=== PATIENT | female | born 1950 | race Caucasian/White ===

== ENCOUNTER 2020-07-07 16:05 | Emergency (ER) | payer MEDICARE, SELFPAY ==
[2020-07-07 19:05] VITALS: BP 108/65; PULSE 88; RESP 18; TEMP 37.1; O2SAT 99; BMI 21.0
--- NOTE | 2020-07-07 20:33 | CT_ITS ---
EXAMINATION: CT ABDOMEN AND PELVIS WITHOUT CONTRAST CLINICAL INFORMATION: Right-sided flank pain. History of kidney stones. COMPARISON: Chest CT 09/13/2018, renal ultrasound 11/01/[address] abdomen pelvis 10/15/2014 TECHNIQUE: Multidetector volumetric imaging was performed from the superior aspect of the liver through the pubic symphysis. Sagittal and coronal reformatted images were obtained on the technologist's workstation. This CT examination was performed using dose optimization techniques as appropriate, variously including the following: *Automated exposure control *Adjustment of mA and/or kV according to patient size (this includes techniques or standardized protocols for targeted exams where dose is matched to indication/reason for exam; i.e. extremities or head) *Use of iterative reconstruction technique DLP: 313 mGy-cm FINDINGS: Visualized lung bases are well aerated. The liver demonstrates normal size, contour and attenuation. The gallbladder is surgically absent. Numerous calcifications within the pancreatic head are most consistent with chronic pancreatitis. The spleen is unremarkable. Similar hypertrophy of both adrenal glands. Symmetrically sized kidneys. There is some cortical atrophy primarily involving the upper pole of the right kidney. There is a 3 mm nonobstructing right renal calculus. No left-sided renal calculi are present. There is no hydronephrosis of either kidney. Interval increase in size of now 4.7 cm exophytic cyst off the upper pole of the left kidney (previously 2.3 cm). Normal caliber loops of small and large bowel. Colonic diverticulum again noted. No gross mesenteric or retroperitoneal lymphadenopathy. Nonaneurysmal abdominal aorta which demonstrates mild atherosclerotic disease. The bladder is decompressed and therefore not accurately evaluated. Unremarkable CT appearance of the uterus. No inguinal lymphadenopathy. No gross free pelvic fluid. Diffuse osteopenia. Degenerative changes of the spine. IMPRESSION: 1. Stable 3 mm nonobstructing right renal calculus. No left-sided renal calculi. No hydronephrosis bilaterally. 2. Cortical atrophy primarily involving the upper pole the right kidney, a chronic finding. 3. Interval increase in size of now 4.7 cm left renal cyst, previously 2.3 cm. 4. Calcifications of the pancreatic head most consistent with chronic pancreatitis.
[2020-07-07] MEDS: 0.9 % Sodium Chloride 1,000 ML 999 ML IVCONT (21:23)
[2020-07-07 21:28] LABS: MANUAL DIFF FLAG NO
[2020-07-07 21:32] LABS: Basophils Absolute Auto 0.1 X10*3/uL (0.0-0.2); Eosinophils Absolute Auto 0.3 X10*3/uL (0.0-0.4); Eosinophils Percent Auto 2.8 % (0-4); Glucose Urine UA NEG (NEG); Hematocrit 36.6 % (37-47); Hemoglobin 11.9 g/dl (12.0-16.0); Imm Gran Abs Auto 0.03 X10*3/uL (0.00-0.03); Imm Gran Pct Auto 0.3 % (0.0-0.4); Leukocyte Esterase Urine 1+ (NEG); Lymphocytes Absolute Auto 3.9 X10*3/uL (1.2-4.9); Lymphocytes Percent Auto 43.6 % (20-40); Mean Corpuscular HGB Conc 32.5 g/dl (31.0-35.0); Mean Corpuscular Hemoglobin 31.4 pg (27.0-33.0); Mean Corpuscular Volume 96.6 fL (80-98); Mean Platelet Volume 9.4 fL (9.4-12.3); Monocytes Absolute Auto 0.8 X10*3/uL (0.1-1.2); Monocytes Percent Auto 9.2 % (2-11); Neutrophils Absolute Auto 3.9 X10*3/uL (2.0-8.3); Neutrophils Percent Auto 43.1 % (45-73); Nitrite Urine NEG (NEG); Platelet Count 267 X10*3/uL (160-400); Red Blood Count 3.79 X10*6/uL (4.20-5.50); Red Cell Distribution Width 12.7 % (11.0-16.0); Specific Gravity - Urine 1.025 (1.005-1.025); Urine Blood 2+ (NEG); Urine Ketones NEG (NEG); Urine Protein TRACE MG/DL (NEG-TRACE); White Blood Count 8.9 X10*3/uL (4.8-10.8)
[2020-07-07 21:33] LABS: Appearance Urine CLOUDY; Color Urine YELLOW
[2020-07-07 21:40] LABS: Bacteria Urine 4+ /LPF
[2020-07-07 22:07] LABS: Alanine Aminotransferase 13 U/L (0-31); Albumin Level 4.1 g/dL (3.5-5.0); Alkaline Phosphatase 68 U/L (39-117); Anion Gap 12 (12-20); Aspartate Amino Transferase 17 U/L (5-31); Bilirubin Total 0.4 mg/dL (0.0-1.0); Blood Urea Nitrogen 17 mg/dL (9-16); Calcium 8.9 mg/dL (8.4-10.2); Carbon Dioxide 27 mmol/L (22-29); Chloride 104 mmol/L (96-108); Creatinine Clr Calc Pharmacy 25.3; Estimated Glomerular Filt Rate 31; Glucose Random 97 mg/dL (60-115); Potassium 4.3 mmol/l (3.3-5.1); Sodium 139 mmol/L (135-145); Total Protein 7.3 g/dL (6.5-8.0)
[2020-07-07 22:15] LABS: Lipase 86 U/L (8-78)
--- NOTE | 2020-07-07 22:38 | ED.ABDPAIN ---
HPI - Abdominal Pain General Chief Complaint: Abdominal Pain Stated Complaint: abdominal pain Time Seen by Provider: 07/07/20 20:28 Source: patient Mode of arrival: ambulatory Limitations: no limitations History of Present Illness MD elicited complaint: abdominal pain Onset (ago): day(s) (3) Pain Consistency: constant Location: RUQ and R flank Severity: moderate Quality: dull Radiation: none Exacerbating factors: nothing Relieving factors: nothing Associated symptoms: nausea Related Data Previous Rx's Medication Instructions Recorded ciprofloxacin HCl [Cipro] 250 mg PO BID #10 tab 07/07/20 Allergies Allergy/AdvReac Type Severity Reaction Status Date / Time Penicillins Allergy Mild RASH Unverified 07/07/20 19:04 Sulfa (Sulfonamide Allergy Mild RASH Unverified 07/07/20 19:04 Antibiotics) [Sulfa (Sulfonamides)] hydromorphone [From DILAUDID] Allergy Unknown NAUSEA & Unverified 07/07/20 19:04 VOMITING penicillin V Allergy Unknown Rash Verified 07/07/20 19:04 Review of Systems Constitutional: Denies chills and Denies fever(s) Cardiovascular: Reports no additional cardiovascular complaints Respiratory: Reports no additional respiratory complaints Gastrointestinal: Denies melena, Denies change in bowel habits, Denies constipation, Denies diarrhea and Denies vomiting Genitourinary: Denies urinary incontinence, Denies urinary hesitancy and Denies urinary urgency Musculoskeletal: Reports no additional musculoskeletal complaints Reports system reviewed and no additional complaints, except as documented Physical Exam Vital Signs: Vital Signs: Vital Signs Temp Pulse Resp BP Pulse Ox 07/07/20 19:05 98.7 F 88 18 108/65 99 Body Mass Index 21.0 Const: General: cooperative Nutritional Appearance: average body habitus Orientation/consciousness: oriented to person, oriented to place and oriented to time Limitations: no limitations HENMT: Ears: hearing grossly normal bilaterally Mouth: Normal oral and palatal mucosa present Eyes: General: appearance normal, both eyes and all related structures Neck: Neck: Yes normal visual inspection Resp: Effort & Inspection: normal respiratory effort Auscultation: clear to auscultation bilaterally Cardio: Rate: regular rate Rhythm: regular rhythm and abnormal rhythm Heart sounds: S1 normal heart sound present and S2 normal heart sound present GI: Inspection: Yes normal to inspection Palpation (GI): Soft to palpation and Tenderness to palpation present (GI) in the RUQ Percussion: Yes normal to percussion : General: Yes CVA tenderness on the right Back/Spine/Pelvis: Back: CVA tenderness Neuro: General: oriented to person, oriented to place and oriented to time Extrem: General: Yes normal to inspection and Yes full ROM Right upper extremity: normal to inspection Left upper extremity: normal to inspection Course Course Course Narrative: patient with nonspecific right flank pain nonobstructive kidney stone urine showing slightly positive for infection with leuko esterase positive, nitrite negative. Will give her Levaquin p.o. Tylenol for pain will discharge her home patient refused any antibiotics or pain medicine in the ER MDM - Abdominal Pain Lab Data Result diagrams: 07/07/20 21:21 07/07/20 21:21 Labs: Lab Results 07/07/20 07/07/20 07/07/20 Range/Units 21:21 21:21 21:21 WBC 8.9 (4.8-10.8) X10*3/uL RBC 3.79 L (4.20-5.50) X10*6/uL Hgb 11.9 L (12.0-16.0) g/dl Hct 36.6 L (37-47) % MCV 96.6 (80-98) fL MCH 31.4 (27.0-33.0) pg MCHC 32.5 (31.0-35.0) g/dl RDW 12.7 (11.0-16.0) % Plt Count 267 (160-400) X10*3/uL MPV 9.4 (9.4-12.3) fL Immature Gran % (Auto) 0.3 (0.0-0.4) % Neut % (Auto) 43.1 L (45-73) % Lymph % (Auto) 43.6 H (20-40) % Bacon % (Auto) 9.2 (2-11) % Eos % (Auto) 2.8 (0-4) % Baso % (Auto) 1.0 (0-2) % Lymph # (Auto) 3.9 (1.2-4.9) X10*3/uL Bacon # (Auto) 0.8 (0.1-1.2) X10*3/uL Eos # (Auto) 0.3 (0.0-0.4) X10*3/uL Baso # (Auto) 0.1 (0.0-0.2) X10*3/uL Abs Immat Gran (auto) 0.03 (0.00-0.03) X10*3/uL Absolute Neuts (auto) 3.9 (2.0-8.3) X10*3/uL Absolute Nucleated RBC 0.000 (0.0-0.012) X10*3/uL Nucleated RBC % (auto) 0.0 (0.0-0.2) /100WBC Sodium 139 (135-145) mmol/L Potassium 4.3 (3.3-5.1) mmol/l Chloride 104 (96-108) mmol/L Carbon Dioxide 27 (22-29) mmol/L Anion Gap 12 (12-20) BUN 17 H (9-16) mg/dL Creatinine 1.63 H (0.5-1.4) mg/dL Estim Creat Clear Calc 25.3 Estimated GFR 31 Random Glucose 97 (60-115) mg/dL Calcium 8.9 (8.4-10.2) mg/dL Total Bilirubin 0.4 (0.0-1.0) mg/dL AST 17 (5-31) U/L ALT 13 (0-31) U/L Alkaline Phosphatase 68 (39-117) U/L Total Protein 7.3 (6.5-8.0) g/dL Albumin 4.1 (3.5-5.0) g/dL Lipase 86 H (8-78) U/L Urine Color YELLOW Urine Appearance CLOUDY Urine pH 6.0 (5.0-8.0) Ur Specific Fleming 1.025 (1.005-1.025) Urine Protein TRACE (NEG-TRACE) MG/DL Urine Glucose (UA) NEG (NEG) MG/DL Urine Ketones NEG (NEG) MG/DL Urine Blood 2+ H (NEG) Urine Nitrite NEG (NEG) Ur Leukocyte Esterase 1+ H (NEG) Urine RBC 1-4 (0) /HPF Urine WBC 5-9 H (0-4) /HPF Ur Squamous Epith Cells NONE /LPF Urine Bacteria 4+ /LPF Discharge Plan Discharge Clinical Impression: Acute right flank pain, Acute UTI Patient Disposition: Home, Self-Care Instructions: Urinary Tract Infection in Women (ED), Renal Colic (ED) Additional Instructions: drink plenty of fluids and take antibiotics as advised, Tylenol for pain follow-up with your primary care doctor if not better Prescriptions: New ciprofloxacin HCl [Cipro] 250 mg tablet 250 mg PO BID Qty: 10 RF: 0 PMFSH Past Medical History Medical History Diabetes Gallbladder & bile duct stone with obstruction High cholesterol Hyperkalemia Hypertension Kidney failure Surgical History History of bladder surgery Social History Social History Advance Directives: No Advance Directives Information Provided: No
[2020-07-07 22:50] VITALS: BP 145/87; PULSE 88; RESP 16; TEMP 37.1; O2SAT 99
[2020-07-08 00:15] LABS: SARS COV2 PCR INHOUSE NEGATIVE (Negative)
== END 2020-07-07 23:29 | disposition home or self-care (01) ==
PROVIDERS: Emergency Provider Internal Medicine; PCP Internal Medicine
DX: N39.0 Urinary tract infection, site not specified (principal); Z79.899 Other long term (current) drug therapy
CPT/HCPCS: 36415; 74176; 80053; 81001; 83690; 85025; 87086; 87088; 87186; 87635; 96361; 96374; 99284; J1885

== ENCOUNTER → 2020-07-22 13:54 | Outpatient (BNVA) | payer MEDICARE, SELFPAY | PROVIDERS: PCP Nurse Practitioner Family; Referring Provider Nurse Practitioner Family; Visit Provider Nurse Practitioner | DX: K59.00 Constipation, unspecified (principal); K21.9 Gastro-esophageal reflux disease without esophagitis; Z79.899 Other long term (current) drug therapy | CPT/HCPCS: 99212 ==

== ENCOUNTER → 2020-09-15 14:12 | Outpatient (BNVA) | payer MEDICARE, SELFPAY | PROVIDERS: PCP Internal Medicine; Visit Provider Nurse Practitioner | DX: Z13.89 Encounter for screening for other disorder (principal) | CPT/HCPCS: Q3014 ==

== ENCOUNTER 2020-09-28 10:49 | Outpatient (REF) | payer MEDICARE, SELFPAY | END 2020-09-28 10:50 | disposition home or self-care (01) | LOC: HO.LNP 10:49 | PROVIDERS: Visit Provider Nurse Practitioner | DX: K21.9 Gastro-esophageal reflux disease without esophagitis (principal) | CPT/HCPCS: 87338 ==

== ENCOUNTER 2020-10-06 11:04 | Outpatient (REF) | payer MEDICARE, SELFPAY ==
[2020-10-06 13:01] LABS: Anion Gap 13 (12-20); Blood Urea Nitrogen 16 mg/dL (9-16); Calcium 8.8 mg/dL (8.4-10.2); Carbon Dioxide 25 mmol/L (22-29); Chloride 104 mmol/L (96-108); Estimated Glomerular Filt Rate 28; Phosphorus 3.3 mg/dL (2.7-4.5); Potassium 5.5 mmol/l (3.3-5.1); Sodium 136 mmol/L (135-145)
[2020-10-06 13:38] LABS: Renal w Reflex Lab Use Only Order verified
== END 2020-10-06 11:05 | disposition home or self-care (01) ==
LOC: HO.LAB 11:04
PROVIDERS: PCP Internal Medicine; Visit Provider Internal Medicine Nephrology
DX: E11.22 Type 2 diabetes mellitus with diabetic chronic kidney disease (principal); I12.9 Hypertensive chronic kidney disease with stage 1 through stage 4 chronic kidney disease, or unspecified chronic kidney disease; N18.30 Chronic kidney disease, stage 3 unspecified; N20.0 Calculus of kidney
CPT/HCPCS: 36415; 80051; 82310; 82565; 84100; 84520

== ENCOUNTER 2020-10-06 11:51 | Outpatient (REF) | payer MEDICARE, SELFPAY | END 2020-10-06 11:52 | disposition home or self-care (01) | LOC: HO.LAB 11:51 | PROVIDERS: Visit Provider Internal Medicine | DX: Z20.822 Contact with and (suspected) exposure to COVID-19 (principal) | CPT/HCPCS: 36415; C9803; U0003 ==

== ENCOUNTER → 2020-10-14 14:34 | Outpatient (BNVA) | payer MEDICARE, SELFPAY | PROVIDERS: PCP Internal Medicine; Visit Provider Nurse Practitioner | DX: Z13.89 Encounter for screening for other disorder (principal) | CPT/HCPCS: Q3014 ==

== ENCOUNTER 2020-11-13 12:37 | Outpatient (REF) | payer MEDICARE, SELFPAY ==
--- NOTE | ~2020-11-13 | MM_ITS ---
EXAMINATION: MM SCREENING DIGITAL BREAST TOMOSYNTHESIS, BILATERAL CLINICAL INFORMATION: Screening. Asymptomatic. The lifetime risk of breast cancer based on the Tyrer-Cuzick Model is 2%. COMPARISON: Mammography: 08/13/2018, 03/17/2016 TECHNIQUE: Digital breast tomosynthesis is performed in both the craniocaudal and mediolateral oblique views along with computer-aided detection (CAD). Synthesized 2D images are generated from the tomosynthesis. FINDINGS: There are scattered areas of fibroglandular density (ACR BI-RADS breast composition Category b). There are no significant masses, abnormal calcifications, or other abnormalities. The axilla and skin contours are unremarkable. No significant changes. MM/MM tomosynthesis screening BI IMPRESSION: No mammographic evidence of malignancy. ASSESSMENT: BI-RADS 1: Negative RECOMMENDATION: Routine annual mammography screening. This patient's information was entered into a reminder system with a target due date for their next mammogram.
== END 2020-11-13 12:38 | disposition home or self-care (01) ==
LOC: HO.MAMMO 12:37
PROVIDERS: PCP Internal Medicine; Visit Provider Internal Medicine
DX: Z12.31 Encounter for screening mammogram for malignant neoplasm of breast (principal)
CPT/HCPCS: 77063; 77067

== ENCOUNTER 2021-01-07 11:39 | Outpatient (REF) | payer MEDICARE, SELFPAY ==
[2021-01-07 12:47] LABS: Anion Gap 14 (12-20); Blood Urea Nitrogen 16 mg/dL (9-16); Carbon Dioxide 23 mmol/L (22-29); Chloride 104 mmol/L (96-108); Estimated Glomerular Filt Rate 31; Phosphorus 3.7 mg/dL (2.7-4.5); Sodium 136 mmol/L (135-145)
[2021-01-07 13:10] LABS: Renal w Reflex Lab Use Only Order verified
== END 2021-01-07 11:40 | disposition home or self-care (01) ==
LOC: HO.LAB 11:39
PROVIDERS: PCP Internal Medicine; Visit Provider Internal Medicine Nephrology
DX: I12.9 Hypertensive chronic kidney disease with stage 1 through stage 4 chronic kidney disease, or unspecified chronic kidney disease (principal); E11.22 Type 2 diabetes mellitus with diabetic chronic kidney disease; E11.21 Type 2 diabetes mellitus with diabetic nephropathy; N18.30 Chronic kidney disease, stage 3 unspecified; N20.0 Calculus of kidney
CPT/HCPCS: 36415; 80051; 82310; 82565; 84100; 84520

== ENCOUNTER 2021-03-11 20:45 | Emergency (ER) | payer MEDICARE, SELFPAY ==
--- NOTE | ~2021-03-11 | XR_ITS ---
EXAMINATION: CHEST 2 VIEWS CLINICAL INFORMATION: congestion . COMPARISON: 07/15/2018. TECHNIQUE: PA and lateral views of the chest obtained. FINDINGS: The lungs are well expanded. No focal infiltrate, effusion, edema, or pneumothorax. Cardiac and mediastinal silhouettes are within normal limits for size with vascular calcification in the aorta. No acute bony abnormality seen XR/XR chest 2V IMPRESSION: No evidence of acute disease compared to 07/15/2018
[2021-03-11 21:10] VITALS: BP 140/75; PULSE 82; RESP 18; TEMP 37.4; O2SAT 96; BMI 21.4
[2021-03-11 21:52] LABS: COVID-19 Test Negative (Negative)
[2021-03-11 23:04] VITALS: BP 135/82; PULSE 74; RESP 18; TEMP 37.3; O2SAT 97
--- NOTE | 2021-03-11 23:41 | ED_ITS ---
HPI - URI/Sore Throat General Chief Complaint: General Medical Stated Complaint: covid symptoms Time Seen by Provider: 03/11/21 23:01 Source: patient and family Mode of arrival: ambulatory Limitations: no limitations History of Present Illness HPI Narrative: Patient's history of recurrent bronchitis being having upper respiratory symptoms for last 3 4 days with frequent cough no fever slight wheezing with shortness of breath patient's grand daughter is sick with the same symptoms patient did not get her COVID vaccine using albuterol inhaler at home denies any chest pain or leg swelling Related Data Previous Rx's Medication Instructions Recorded docusate sodium 100 mg capsule 100 mg PO DAILY #30 cap 10/07/20 sennosides 8.6 mg tablet [id number]? mg PO BEDTIME #60 tab 10/22/20 pantoprazole 40 mg tablet,delayed 40 mg PO BID 30 Days #60 tab 02/22/21 release albuterol sulfate [Proventil HFA] 2 puff INHALATION Q4-6H PRN #8.5 g 03/11/21 codeine-guaifenesin 5 ml PO Q6H PRN #120 ml 03/11/21 doxycycline hyclate 100 mg PO BID #20 cap 03/11/21 Allergies Allergy/AdvReac Type Severity Reaction Status Date / Time Penicillins Allergy Mild RASH Verified 10/14/20 14:34 Sulfa (Sulfonamide Allergy Mild RASH Verified 10/14/20 14:34 Antibiotics) [Sulfa (Sulfonamides)] hydromorphone [From DILAUDID] Allergy Unknown NAUSEA & Verified 10/14/20 14:34 VOMITING Review of Systems Review of Systems: Constitutional : No Weight loss, No Fever, No Chills ENT/Mouth : No sore throat, No Rhinorrhea Eyes: No Eye Pain, No Swelling Cardiovascular : No Chest Pain, no palpitations Respiratory : +Cough, No Sputum, + shortness of breath Gastrointestinal : no Nausea, No Vomiting, No Diarrhea, No abdominal Pain, no black stools Genitourinary : No Dysuria, No Urinary Frequency Musculoskeletal : No joint pain, No Myalgias, No Joint Swelling Skin : No Skin Lesions, No rash Neuro : No Weakness, No Numbness, No Dizziness, No Headache Psych : No Anxiety/Panic, No Depression Heme/Lymph: No Bruising, No Lymphadenopathy Endocrine : No Polyuria, No Polydipsia All other systems reviewed and are negative [facility] Past Medical History Medical History Diabetes Gallbladder & bile duct stone with obstruction High cholesterol Hyperkalemia Hypertension Kidney failure Surgical History History of bladder surgery Hx of colonoscopy Family History Family History Father Diabetes Heart attack Mother Diabetes Alzheimer disease Family/Other Diabetes Social History Social History Household Members: None Alcohol intake: never Cigarettes Per Day: 4 Advance Directives: No Advance Directives Information Provided: No Physical Exam Vital Signs: Vital Signs: Last Vital Signs Temp 99.2 F 03/11/21 23:04 Pulse 74 03/11/21 23:04 Resp 18 03/11/21 23:04 BP 135/82 03/11/21 23:04 Pulse Ox 97 03/11/21 23:04 Body Mass Index 21.4 Appearance: Alert. Oriented X3. No acute distress. Eyes: PERRLA, No Nystagmus ENT: Pharynx normal. Oral Mucosa moist Neck: Normal inspection. Neck supple. CVS: Normal heart rate and rhythm. Pulses normal. Respiratory: No respiratory distress. Equal air entry bilateral, bilateral wheezing with frequent cough Abdomen: Soft and nontender. Bowel sounds are present, no mass palpable, no CVA tenderness Skin: Skin warm and dry. Normal skin color. Normal skin turgor. Extremities: No lower extremity edema. No calf tenderness Neuro: Oriented X 3. No motor deficit. No sensory deficit.No cerebellar signs , cranial nerves II-XII intact MDM - URI/Sore Throat MDM Narrative Medical decision making narrative: Patient with acute bronchitis refuse nebulizing treatment in the ER saturating 96% at room air does have inhaler at home will continue to use will give her doxycycline and Robitussin syrup chest x-ray negative for any infiltrate COVID-19 negative Lab Data Attestation: I reviewed the patient's lab results. Labs: Lab Results 03/11/21 Range/Units 21:27 COVID-19 (ASAF) Negative (Negative) COVID-19 Clin Com See Note Discharge Plan Discharge Clinical Impression: Acute bronchitis Patient Disposition: Home, Self-Care Instructions: Acute Bronchitis (ED) Additional Instructions: Continue to use your inhaler 2 puffs every 4-6 hours as needed Antibiotic and cough syrup as advised Prescriptions: New doxycycline hyclate 100 mg capsule 100 mg PO BID Qty: 20 RF: 0 codeine-guaifenesin 10-100 mg/5 mL liquid 5 ml PO Q6H PRN (Reason: cough) Qty: 120 RF: 0 albuterol sulfate [Proventil HFA] 90 mcg/actuation HFA aerosol inhaler 2 puff inhalation Q4-6H PRN (Reason: shortness of breath or wheezing) Qty: 8.5 RF: 0 No Action docusate sodium 100 mg capsule 100 mg PO DAILY Qty: 30 RF: 3 sennosides [Senna Laxative] 8.6 mg tablet [id number]? mg PO BEDTIME Qty: 60 RF: 1 pantoprazole [Protonix] 40 mg tablet,delayed release (DR/EC) 40 mg PO BID 30 Days Qty: 60 RF: 6 Interventions: ED Discharge Assessment Last Done: 03/11/21 23:50 Discharge Date/Time: 03/11/21 23:51
== END 2021-03-11 23:51 | disposition home or self-care (01) ==
PROVIDERS: Emergency Provider Internal Medicine; PCP Internal Medicine
DX: J20.9 Acute bronchitis, unspecified (principal); E11.9 Type 2 diabetes mellitus without complications; I10 Essential (primary) hypertension; Z20.822 Contact with and (suspected) exposure to COVID-19
CPT/HCPCS: 36415; 71046; 87635; 99283; 99284

== ENCOUNTER → 2021-03-29 12:40 | Outpatient (BNVA) | payer MEDICARE, SELFPAY | PROVIDERS: PCP Internal Medicine; Visit Provider Nurse Practitioner | DX: K59.00 Constipation, unspecified (principal); K21.9 Gastro-esophageal reflux disease without esophagitis; B37.3 Candidiasis of vulva and vagina | CPT/HCPCS: Q3014 ==

== ENCOUNTER 2021-04-26 12:17 | Outpatient (REF) | payer MEDICARE, SELFPAY ==
[2021-04-26 13:18] LABS: Alanine Aminotransferase 14 U/L (0-31); Alkaline Phosphatase 84 U/L (39-117); Anion Gap 13 (12-20); Aspartate Amino Transferase 18 U/L (5-31); Bilirubin Total 0.5 mg/dL (0.0-1.0); Blood Urea Nitrogen 14 mg/dL (9-16); Calcium 9.3 mg/dL (8.4-10.2); Carbon Dioxide 24 mmol/L (22-29); Chloride 107 mmol/L (96-108); Estimated Glomerular Filt Rate 30; Glucose Random 253 mg/dL (60-115); Iron 142 mcg/dL (30-160); Potassium 5.3 mmol/L (3.3-5.1); Sodium 139 mmol/L (135-145); Total Protein 7.1 g/dL (6.5-8.0)
[2021-04-26 13:32] LABS: Percent Iron Saturation 48 % (15-50); Total Iron Binding Capacity 296 mcg/dL (228-428); Unsaturated Iron Binding 154 ug/dL
[2021-04-26 13:41] LABS: Creatinine Urine 260.77 mg/dL; Microalbum/Creatinine Ratio Ur 12.2 ug/mg cr
== END 2021-04-26 12:18 | disposition home or self-care (01) ==
LOC: HO.LAB 12:17
PROVIDERS: PCP Internal Medicine; Visit Provider Internal Medicine Nephrology
DX: I12.9 Hypertensive chronic kidney disease with stage 1 through stage 4 chronic kidney disease, or unspecified chronic kidney disease (principal); N18.30 Chronic kidney disease, stage 3 unspecified; D50.9 Iron deficiency anemia, unspecified; D63.1 Anemia in chronic kidney disease
CPT/HCPCS: 36415; 80053; 82043; 83540

== ENCOUNTER 2021-11-15 14:35 | Outpatient (REF) | payer MEDICARE, SELFPAY ==
[2021-11-15 15:21] LABS: MANUAL DIFF FLAG NO
[2021-11-15 15:51] LABS: Basophils Absolute Auto 0.1 X10*3/uL (0.0-0.2); Basophils Percent Auto 1.2 % (0-2); Eosinophils Absolute Auto 0.3 X10*3/uL (0.0-0.4); Eosinophils Percent Auto 3.7 % (0-4); Hematocrit 39.1 % (37.0-47.0); Hemoglobin 12.6 g/dl (12.0-16.0); Imm Gran Abs Auto 0.03 X10*3/uL (0.00-0.03); Imm Gran Pct Auto 0.4 % (0.0-0.4); Lymphocytes Absolute Auto 3.3 X10*3/uL (1.2-4.9); Lymphocytes Percent Auto 40.2 % (20-40); Mean Corpuscular HGB Conc 32.2 g/dl (31.0-35.0); Mean Corpuscular Hemoglobin 30.5 pg (27.0-33.0); Mean Corpuscular Volume 94.7 fL (80.0-98.0); Mean Platelet Volume 9.5 fL (9.4-12.3); Monocytes Absolute Auto 0.6 X10*3/uL (0.1-1.2); Monocytes Percent Auto 7.4 % (2-11); Neutrophils Absolute Auto 3.8 x10*3/uL (2.0-8.3); Neutrophils Percent Auto 47.1 % (45-73); Platelet Count 343 X10*3/uL (160-400); Red Blood Count 4.13 X10*6/uL (4.20-5.50); Red Cell Distribution Width 12.5 % (11.0-16.0); White Blood Count 8.1 X10*3/uL (4.8-10.8)
[2021-11-15 16:13] LABS: Albumin Level 4.3 g/dL (3.5-5.0); Anion Gap 10 (12-20); Blood Urea Nitrogen 12 mg/dL (9-16); Calcium 9.8 mg/dL (8.4-10.2); Carbon Dioxide 28 mmol/L (22-29); Chloride 105 mmol/L (96-108); Estimated Glomerular Filt Rate 34; Magnesium 1.9 mg/dL (1.6-2.6); Phosphorus 3.4 mg/dL (2.7-4.5); Potassium 5.1 mmol/L (3.3-5.1); Sodium 138 mmol/L (135-145)
[2021-11-15 16:34] LABS: Appearance Urine HAZY; Color Urine YELLOW; Glucose Urine UA >=1000 MG/DL (NEG); Leukocyte Esterase Urine 1+ (NEG); Nitrite Urine NEG (NEG); Specific Gravity - Urine 1.015 (1.005-1.025); Urine Blood TRACE (NEG); Urine Ketones NEG (NEG); Urine Protein NEG (NEG-TRACE)
[2021-11-15 16:35] LABS: Vitamin D 25-OH Total 13.1 ng/mL (>30)
[2021-11-15 16:36] LABS: Creatinine Urine 86.84 mg/dL; Microalbum/Creatinine Ratio Ur 11.5 ug/mg cr; Protein/Creatinine Ratio, Ur 0.13 (<0.2); Total Protein Urine Random 11 mg/dL (<12)
[2021-11-15 16:46] LABS: Bacteria Urine 4+ /LPF; Squamous Epithelial Cell Urine TRACE /LPF; WBC Urine 50-75 /HPF (0-4)
[2021-11-16 13:01] LABS: Calcium (PTHI) 9.4 mg/dL (8.6-10.4); PTHI 94 pg/mL (14-64)
== END 2021-11-15 14:36 | disposition home or self-care (01) ==
LOC: HO.LAB 14:35
PROVIDERS: PCP Internal Medicine; Visit Provider Internal Medicine Nephrology
DX: I12.9 Hypertensive chronic kidney disease with stage 1 through stage 4 chronic kidney disease, or unspecified chronic kidney disease (principal); N18.32 Chronic kidney disease, stage 3b; E11.22 Type 2 diabetes mellitus with diabetic chronic kidney disease; E11.29 Type 2 diabetes mellitus with other diabetic kidney complication
CPT/HCPCS: 36415; 80051; 81001; 81003; 82040; 82043; 82306; 82310; 82565; 83735; 83970; 84100; 84156; 84520; 85025; 87086; 87088; 87186

== ENCOUNTER 2022-05-17 11:16 | Outpatient (REF) | payer OTHER, SELFPAY ==
[2022-05-17 11:43] LABS: MANUAL DIFF FLAG NO
[2022-05-17 12:45] LABS: Basophils Absolute Auto 0.1 X10*3/uL (0.0-0.2); Basophils Percent Auto 1.5 % (0-2); Eosinophils Absolute Auto 0.3 X10*3/uL (0.0-0.4); Eosinophils Percent Auto 5.3 % (0-4); Hematocrit 38.5 % (37.0-47.0); Hemoglobin 12.4 g/dl (12.0-16.0); Imm Gran Abs Auto 0.02 X10*3/uL (0.00-0.03); Imm Gran Pct Auto 0.4 % (0.0-0.4); Lymphocytes Percent Auto 37.3 % (20-40); Mean Corpuscular HGB Conc 32.2 g/dl (31.0-35.0); Mean Corpuscular Hemoglobin 30.3 pg (27.0-33.0); Mean Corpuscular Volume 94.1 fL (80.0-98.0); Mean Platelet Volume 10.4 fL (9.4-12.3); Monocytes Absolute Auto 0.4 X10*3/uL (0.1-1.2); Monocytes Percent Auto 7.6 % (2-11); Neutrophils Absolute Auto 2.5 x10*3/uL (2.0-8.3); Neutrophils Percent Auto 47.9 % (45-73); Platelet Count 227 X10*3/uL (160-400); Red Blood Count 4.09 X10*6/uL (4.20-5.50); Red Cell Distribution Width 12.8 % (11.0-16.0); White Blood Count 5.3 X10*3/uL (4.8-10.8)
[2022-05-17 12:58] LABS: Albumin Level 3.9 g/dL (3.5-5.0); Anion Gap 14 (12-20); Blood Urea Nitrogen 12 mg/dL (9-16); Calcium 9.2 mg/dL (8.4-10.2); Carbon Dioxide 24 mmol/L (22-29); Chloride 104 mmol/L (96-108); Estimated Glomerular Filt Rate 31; Magnesium 1.8 mg/dL (1.6-2.6); Phosphorus 3.7 mg/dL (2.7-4.5); Potassium 5.4 mmol/L (3.3-5.1); Sodium 137 mmol/L (135-145)
[2022-05-17 13:22] LABS: Vitamin D 25-OH Total 20.9 ng/mL (>30)
[2022-05-17 13:39] LABS: Appearance Urine Clear; Color Urine Yellow; Glucose Urine UA 500 mg/dL (Negative); Leukocyte Esterase Urine Moderate (2+) (Negative); Nitrite Urine Negative (Negative); Specific Gravity - Urine 1.015 (1.005-1.025); Urine Blood Trace (Negative); Urine Ketones Trace mg/dL (Negative); Urine Protein Trace mg/dL (Neg-Trace)
[2022-05-17 13:54] LABS: Bacteria Urine 4+ (None Seen); RBC Urine 0-2 /HPF (0-2); UACC Culture Trigger YES; WBC Urine >50 /HPF (0-5)
[2022-05-17 14:08] LABS: Creatinine Urine 161.78 mg/dL; Microalbum/Creatinine Ratio Ur 13.5 ug/mg cr; Total Protein Urine Random 16 mg/dL (<12)
[2022-05-18 16:13] LABS: Calcium (PTHI) 9.1 mg/dL (8.6-10.4); PTHI 80 pg/mL (16-77)
== END 2022-05-17 11:17 | disposition home or self-care (01) ==
LOC: HO.LAB 11:16
PROVIDERS: PCP Internal Medicine; Visit Provider Internal Medicine Nephrology
DX: I12.9 Hypertensive chronic kidney disease with stage 1 through stage 4 chronic kidney disease, or unspecified chronic kidney disease (principal); N18.32 Chronic kidney disease, stage 3b; N25.0 Renal osteodystrophy; N20.0 Calculus of kidney
CPT/HCPCS: 36415; 80051; 81001; 82040; 82043; 82306; 82310; 82565; 83735; 83970; 84100; 84156; 84520; 85025; 87086; 87088; 87186

== ENCOUNTER 2023-02-13 12:05 | Outpatient (REF) | payer OTHER, SELFPAY ==
[2023-02-13 13:55] LABS: Basophils Absolute Auto 0.1 X10*3/uL (0.0-0.2); Basophils Percent Auto 1.5 % (0-2); Eosinophils Absolute Auto 0.2 X10*3/uL (0.0-0.4); Eosinophils Percent Auto 2.9 % (0-4); Hematocrit 40.5 % (37.0-47.0); Hemoglobin 13.1 g/dl (12.0-16.0); Imm Gran Abs Auto 0.02 X10*3/uL (0.00-0.03); Imm Gran Pct Auto 0.3 % (0.0-0.4); Lymphocytes Absolute Auto 2.4 X10*3/uL (1.2-4.9); Lymphocytes Percent Auto 31.8 % (20-40); MANUAL DIFF FLAG NO; Mean Corpuscular HGB Conc 32.3 g/dl (31.0-35.0); Mean Corpuscular Hemoglobin 30.6 pg (27.0-33.0); Mean Corpuscular Volume 94.6 fL (80.0-98.0); Mean Platelet Volume 10.5 fL (9.4-12.3); Monocytes Absolute Auto 0.6 X10*3/uL (0.1-1.2); Monocytes Percent Auto 7.8 % (2-11); Neutrophils Absolute Auto 4.2 x10*3/uL (2.0-8.3); Neutrophils Percent Auto 55.7 % (45-73); Platelet Count 167 X10*3/uL (160-400); Red Blood Count 4.28 X10*6/uL (4.20-5.50); Red Cell Distribution Width 12.9 % (11.0-16.0); White Blood Count 7.6 X10*3/uL (4.8-10.8)
[2023-02-13 15:10] LABS: Albumin Level 4.1 g/dL (3.5-5.0); Anion Gap 14 (12-20); Blood Urea Nitrogen 11 mg/dL (9-16); Calcium 9.3 mg/dL (8.4-10.2); Carbon Dioxide 25 mmol/L (22-29); Chloride 104 mmol/L (96-108); Estimated Glomerular Filt Rate 29; Magnesium 1.9 mg/dL (1.6-2.6); Phosphorus 3.3 mg/dL (2.7-4.5); Potassium 5.1 mmol/L (3.3-5.1); Sodium 138 mmol/L (135-145)
[2023-02-13 15:13] LABS: Appearance Urine Cloudy; Color Urine Dark Yellow; Glucose Urine UA 500 mg/dL (Negative); Leukocyte Esterase Urine Moderate (2+) (Negative); Nitrite Urine Negative (Negative); PH 5.5 (5.0-9.0); UMIC TRIGGER UA YES; Urine Blood Negative (Negative); Urine Ketones Trace mg/dL (Negative); Urine Protein 30 (1+) mg/dL (Neg-Trace)
[2023-02-13 15:25] LABS: Vitamin D 25-OH Total 14.5 ng/mL (>30)
[2023-02-13 15:27] LABS: Bacteria Urine 4+ (None Seen); Hyaline Casts Urine >20 /LPF (0-2); WBC Clumps Urine Present; WBC Urine >50 /HPF (0-5)
[2023-02-13 15:45] LABS: Microalbum/Creatinine Ratio Ur 21.5 ug/mg cr; Total Protein Urine Random 37 mg/dL (<12)
[2023-02-15 15:44] LABS: Calcium (PTHI) 9.3 mg/dL (8.6-10.4); PTHI 100 pg/mL (16-77)
== END 2023-02-13 12:06 | disposition home or self-care (01) ==
LOC: HO.LAB 12:05
PROVIDERS: PCP Internal Medicine; Visit Provider Internal Medicine Nephrology
DX: I12.9 Hypertensive chronic kidney disease with stage 1 through stage 4 chronic kidney disease, or unspecified chronic kidney disease (principal); E11.22 Type 2 diabetes mellitus with diabetic chronic kidney disease; N18.32 Chronic kidney disease, stage 3b; N20.0 Calculus of kidney; E11.21 Type 2 diabetes mellitus with diabetic nephropathy; N25.0 Renal osteodystrophy
CPT/HCPCS: 36415; 80051; 81001; 82040; 82043; 82306; 82310; 82565; 83735; 83970; 84100; 84156; 84520; 85025; 87086; 87088; 87186

== ENCOUNTER 2023-03-16 13:11 | Emergency (ER) | payer OTHER, SELFPAY ==
--- NOTE | ~2023-03-16 | XR_ITS ---
EXAMINATION: XR CHEST CLINICAL INFORMATION: Covid positive. Cough. COMPARISON: None available. TECHNIQUE: 2 views of the chest were obtained. FINDINGS: No significant abnormality is noted involving the heart, lungs, mediastinum, or soft tissues. Mild atherosclerotic aorta. Mild degenerative changes of the spine. Calcifications projecting over the expected location of the pancreas on lateral view, suggesting chronic pancreatitis. XR/XR chest 2V IMPRESSION: No acute finding.
[2023-03-16 13:29] VITALS: BP 118/76; PULSE 93; RESP 18; TEMP 36.9; O2SAT 96; BMI 21.5
--- NOTE | 2023-03-16 13:32 | ED_ITS ---
HPI - General Adult General Chief complaint: Nausea/Vomiting/Diarrhea Stated complaint: diharea Time Seen by Provider: 03/16/23 15:44 Source: patient Mode of arrival: ambulatory Limitations: no limitations History of Present Illness HPI narrative: This is a 72-year-old female with history of chronic kidney disease, diabetes who presents to the ER with 4 days of intermittent vomiting, diarrhea, dizzy when moving around, subjective fevers. Patient also reports cough. Patient denies shortness of breath, chest pain, abdominal pain, neck pain or neck stiffness, skin rash, leg swelling or leg pain No sick contact or recent travel Related Data Previous Rx's Medication Instructions Recorded docusate sodium 100 mg capsule 100 mg PO DAILY #30 caps 10/07/20 albuterol sulfate 90 mcg/actuation 2 puff inhalation Q4-6H PRN 03/11/21 aerosol inhaler (Proventil HFA) shortness of breath or wheezing #8.5 grams codeine 10 mg-guaifenesin 100 mg/5 5 ml PO Q6H PRN cough #120 mL 03/11/21 mL oral liquid doxycycline hyclate 100 mg capsule 100 mg PO BID #20 caps 03/11/21 fluconazole 200 mg tablet 200 mg PO DAILY 1 day #1 tab 03/29/21 (Diflucan) pantoprazole 40 mg tablet,delayed 40 mg PO BID #180 tabs 08/31/21 release sennosides 8.6 mg tablet (senna) 17.2 mg PO BEDTIME for 02/06/22 constipation #60 tabs ondansetron 4 mg disintegrating 4 mg PO Q6H PRN nausea and 03/16/23 tablet vomiting #15 tabs Allergies Allergy/AdvReac Type Severity Reaction Status Date / Time doxycycline Allergy Mild Itching Verified 03/16/23 13:34 Penicillins Allergy Mild RASH Verified 03/16/23 13:34 Sulfa (Sulfonamide Allergy Mild RASH Verified 03/16/23 13:34 Antibiotics) [Sulfa (Sulfonamides)] hydromorphone [From DILAUDID] Allergy Unknown NAUSEA & Verified 03/16/23 13:34 VOMITING Review of Systems Review of Systems: Yes all other systems are reviewed and are negative Constitutional: Constitutional: Reports no additional constitutional complaints, Denies body ache(s), Denies chills, Reports fever(s), Denies headache(s) and Denies weakness Eyes: Eyes: Reports no additional eye complaints and Denies change in vision ENT: Reports system reviewed and no additional complaints, except as documented, Reports dizziness, Denies headache(s), Denies nasal congestion, Justice es nasal discharge and Denies neck pain Cardiovascular: Cardiovascular: Reports no additional cardiovascular complaints, Denies chest pain, Denies leg edema and Denies dyspnea Respiratory: Respiratory: Reports no additional respiratory complaints, Reports cough and Denies dyspnea Gastrointestinal: Gastrointestinal: Reports no additional gastrointestinal complaints, Denies abdominal pain, Reports diarrhea, Reports nausea and Reports vomiting Genitourinary: Genitourinary: Reports no additional female genitourinary complaints and Denies urinary incontinence Musculoskeletal: Musculoskeletal: Reports no additional musculoskeletal complaints, Denies back pain, Denies arthralgias, Denies joint swelling, Denies neck pain, Denies numbness and Denies tingling Integumentary/Breasts: Skin/Breast: Reports system reviewed and no additional complaints, except as docu and Denies rash Neurologic: Reports system reviewed and no additional complaints, except as documented, Reports dizziness, Denies headache(s), Denies numbness, Denies tingling and Denies weakness PMFSH Past Medical History Attestation statement: The following information was validated with the patient. Source: old records reviewed and nursing notes reviewed Medical History Diabetes Gallbladder & bile duct stone with obstruction High cholesterol Hyperkalemia Hypertension Kidney failure Surgical History History of bladder surgery Hx of colonoscopy Family History Family History Father Diabetes Heart attack Mother Diabetes Alzheimer disease Family/Other Diabetes Social History Social History Household Members: None Alcohol intake: never Cigarettes Per Day: 4 Advance Directives: No Advance Directives Information Provided: No Physical Exam ED Vital Signs: Vital Signs - 24 hr 03/16/23 13:29 Temperature 98.5 F Pulse Rate 93 Respiratory Rate 18 Blood Pressure 118/76 Pulse Oximetry 96 Oxygen Delivery Method Room Air BMI result Body Mass Index 21.5 Const General: cooperative, healthy appearing, comfortable and no acute distress Orientation/consciousness: patient oriented x3 Limitations: no limitations HENMT Head: Yes normal to inspection Ears: hearing grossly normal bilaterally and TM's normal bilaterally General nose exam: Normal external nose present Face and sinus: Yes normal facial exam Mouth: Normal oral and palatal mucosa present Throat: Yes posterior oropharynx normal, Yes tonsils normal and Yes uvula midline Eyes General: appearance normal, both eyes and all related structures Pupils: Equal, round and reactive pupils present Neck Neck: Yes normal visual inspection, Yes full ROM, Yes no lymphadenopathy and Yes no meningeal signs Chest Chest palpation & inspection: normal inspection of the chest Resp Effort & Inspection: normal respiratory effort Auscultation: clear to auscultation bilaterally Cardio Rate: regular rate Rhythm: regular rhythm Peripheral pulses: Peripheral pulses 2+ throughout GI Inspection: Yes normal to inspection Palpation (GI): Soft to palpation and nontender General: Yes no CVA tenderness Back/Spine/Pelvis Back: no CVA tenderness Skin General skin exam: no rashes or lesions noted Neuro General: patient oriented x3, moves all extremities and no meningeal signs Cranial nerves: Yes Equal, round and reactive pupils present Cognition (Neuro): normal cognition Gait exam (Neuro): Normal gait present Extrem General: Yes normal to inspection, Yes no pedal edema and Yes no calf tenderness Course Course Course Narrative: RME performed by Lexi Storey PA-C. Patient is a 72 year old assigned female at presenting to the emergency department with nausea, diarrhea, fever, and chills. Labs and swabs ordered. Patient placed back in the waiting room pending room availability and results. Reevaluation(s) Reevaluation #1: COVID screen is positive. Patient has no hypoxia or tachypnea. She has mild ex piratory wheezing with underlying history of asthma. She has an inhaler at home that she can use as needed. Her chest x-ray is negative for any superimposed bacterial pneumonia. Her labs are at baseline. Patient is tolerating p.o. with no vomiting. I will send her home with Zofran p.r.n.. We discussed supportive care for COVID. Reviewed worrisome signs and symptoms of when to return to the emergency room. Comfortable plan for discharge home. Medical Decision Making Medical Decision Making MDM Narrative: This is a 72-year-old female who presents the ER with complaints of 4 days of vomiting, diarrhea, subjective fevers, cough and feeling lightheaded and dizzy when she moves around Abdomen soft and nontender Vitals are stable. Will check labs, chest x-ray, UA, COVID screen Differential Diagnosis Differential Diagnoses: The differential diagnosis associated with the presentation includes Viral illness, gastroenteritis Lab Data MDM Lab Attestation statement: I reviewed the patient's lab results. 03/16/23 14:12 03/16/23 14:12 Labs: Lab Results 03/16/23 03/16/23 03/16/23 Range/Units 14:12 14:12 14:12 WBC 5.1 (4.8-10.8) X10*3/uL RBC 4.30 (4.20-5.50) X10*6/uL Hgb 13.3 (12.0-16.0) g/dl Hct 40.7 (37.0-47.0) % MCV 94.7 (80.0-98.0) fL MCH 30.9 (27.0-33.0) pg MCHC 32.7 (31.0-35.0) g/dl RDW 13.1 (11.0-16.0) % Plt Count 207 (160-400) X10*3/uL MPV 9.5 (9.4-12.3) fL Immature Gran % (Auto) 0.2 (0.0-0.4) % Neut % (Auto) 61.7 (45-73) % Lymph % (Auto) 26.4 (20-40) % Ashe % (Auto) 10.7 (2-11) % Eos % (Auto) 0.2 (0-4) % Baso % (Auto) 0.8 (0-2) % Lymph # (Auto) 1.4 (1.2-4.9) X10*3/uL Ashe # (Auto) 0.6 (0.1-1.2) X10*3/uL Eos # (Auto) 0.0 (0.0-0.4) X10*3/uL Baso # (Auto) 0.0 (0.0-0.2) X10*3/uL Abs Immat Gran (auto) 0.01 (0.00-0.03) X10*3/uL Absolute Neuts (auto) 3.2 (2.0-8.3) x10*3/uL Absolute Nucleated RBC 0.000 (0.0-0.012) X10*3/uL Nucleated RBC % (auto) 0.0 (0.0-0.2) /100WBC Sodium 134 L (135-145) mmol/L Potassium 4.9 (3.3-5.1) mmol/L Chloride 103 (96-108) mmol/L Carbon Dioxide 22 (22-29) mmol/L Anion Gap 14 (12-20) BUN 16 (9-16) mg/dL Creatinine 1.79 H (0.5-1.4) mg/dL Estim Creat Clear Calc 20.1 Estimated GFR 28 Random Glucose 326 H (60-115) mg/dL Calcium 9.1 (8.4-10.2) mg/dL Magnesium 1.9 (1.6-2.6) mg/dL Total Bilirubin 0.6 (0.0-1.0) mg/dL AST 45 H (5-31) U/L ALT 33 H (0-31) U/L Alkaline Phosphatase 90 (39-117) U/L Total Protein 7.6 (6.5-8.0) g/dL Albumin 3.9 (3.5-5.0) g/dL COVID-19 (ASAF) Positive A (Negative) COVID-19 Clin Com See Note Independent Interpretation I performed an independent interpretation of an: Plain X-Ray Interpretation: I independently reviewed the x-ray and agree with the radiologist's report Radiology Impression Discussion of test interpretation with radiology: I have reviewed the radiologist's reading. Radiologist Impression: [place] [id number] XRay Report Signed Patient: Droy Bassett MR#: [id number] : 1950 Acct:[id number] Age/Sex: 72 / F ADM Date: 03/16/23 Loc: .ED Attending Dr: Ordering Physician: Tasha Wiggins NP Date of Service: 03/16/23 Procedure(s): XR chest 2V Accession Number(s): [id number] cc: Tasha Wiggins NP~ EXAMINATION: XR CHEST CLINICAL INFORMATION: Covid positive. Cough. COMPARISON: None available. TECHNIQUE: 2 views of the chest were obtained. FINDINGS: No significant abnormality is noted involving the heart, lungs, mediastinum, or soft tissues. Mild atherosclerotic aorta. Mild degenerative changes of the spine. Calcifications projecting over the expected location of the pancreas on lateral view, suggesting chronic pancreatitis. XR/XR chest 2V IMPRESSION: No acute finding. Discharge Plan Discharge Clinical Impression: COVID-19 Patient Disposition: Home, Self-Care Instructions: COVID-19 (Coronavirus Disease 2019) (ED) Additional Instructions: Duenas pantalla de COVID es positiva. Por favor, cuarentena isabella 5 d?as. [place] Motrin o Tylenol si puede seg?n sea necesario para el dolor o la fiebre. [place] el Zofran seg?n sea necesario para las n?useas. Comience con l?quidos key y aumente duenas dieta seg?n lo tolere. Regrese por cualquier dolor en el pecho, dificultad para respirar. Your COVID screen is positive. Please quarantine for 5 days. Take Motrin or Tylenol if able as needed for pain or fever. Take the Zofran as needed for nausea. Start with clear liquids and advance her diet as tolerated. Please return for any chest pain, shortness of breath. Prescriptions: New ondansetron 4 mg tablet,disintegrating 4 mg PO Q6H PRN (Reason: nausea and vomiting) Qty: 15 0RF No Action docusate sodium 100 mg capsule 100 mg PO DAILY Qty: 30 3RF pantoprazole 40 mg tablet,delayed release (DR/EC) 40 mg PO BID Qty: 180 2RF sennosides [senna] 8.6 mg tablet 17.2 mg PO BEDTIME Qty: 60 3RF doxycycline hyclate 100 mg capsule 100 mg PO BID Qty: 20 0RF codeine-guaifenesin 10-100 mg/5 mL liquid 5 ml PO Q6H PRN (Reason: cough) Qty: 120 0RF albuterol sulfate [Proventil HFA] 90 mcg/actuation HFA aerosol inhaler 2 puff inhalation Q4-6H PRN (Reason: shortness of breath or wheezing) Qty: 8.5 0RF fluconazole [Diflucan] 200 mg tablet 200 mg PO DAILY 1 Days Qty: 1 0RF Referrals: Hyun Resendiz MD [Primary Care Provider] - 1 week Interventions: ED Discharge Assessment Last Done: 03/16/23 17:26 Discharge Date/Time: 03/16/23 17:26 Print Language: Serbian
[2023-03-16 14:16] LABS: MANUAL DIFF FLAG NO
[2023-03-16 14:17] LABS: Basophils Percent Auto 0.8 % (0-2); Eosinophils Percent Auto 0.2 % (0-4); Hematocrit 40.7 % (37.0-47.0); Hemoglobin 13.3 g/dl (12.0-16.0); Imm Gran Abs Auto 0.01 X10*3/uL (0.00-0.03); Imm Gran Pct Auto 0.2 % (0.0-0.4); Lymphocytes Absolute Auto 1.4 X10*3/uL (1.2-4.9); Lymphocytes Percent Auto 26.4 % (20-40); Mean Corpuscular HGB Conc 32.7 g/dl (31.0-35.0); Mean Corpuscular Hemoglobin 30.9 pg (27.0-33.0); Mean Corpuscular Volume 94.7 fL (80.0-98.0); Mean Platelet Volume 9.5 fL (9.4-12.3); Monocytes Absolute Auto 0.6 X10*3/uL (0.1-1.2); Monocytes Percent Auto 10.7 % (2-11); Neutrophils Absolute Auto 3.2 x10*3/uL (2.0-8.3); Neutrophils Percent Auto 61.7 % (45-73); Platelet Count 207 X10*3/uL (160-400); Red Cell Distribution Width 13.1 % (11.0-16.0); White Blood Count 5.1 X10*3/uL (4.8-10.8)
[2023-03-16 14:25] LABS: COVID-19 Test Positive (Negative); IDNOW Serial# 08D9AD1C
[2023-03-16 14:43] LABS: Alanine Aminotransferase 33 U/L (0-31); Albumin Level 3.9 g/dL (3.5-5.0); Alkaline Phosphatase 90 U/L (39-117); Anion Gap 14 (12-20); Aspartate Amino Transferase 45 U/L (5-31); Bilirubin Total 0.6 mg/dL (0.0-1.0); Blood Urea Nitrogen 16 mg/dL (9-16); Calcium 9.1 mg/dL (8.4-10.2); Carbon Dioxide 22 mmol/L (22-29); Chloride 103 mmol/L (96-108); Creatinine Clr Calc Pharmacy 20.1; Estimated Glomerular Filt Rate 28; Glucose Random 326 mg/dL (60-115); Magnesium 1.9 mg/dL (1.6-2.6); Potassium 4.9 mmol/L (3.3-5.1); Sodium 134 mmol/L (135-145); Total Protein 7.6 g/dL (6.5-8.0)
== END 2023-03-16 17:26 | disposition home or self-care (01) ==
PROVIDERS: Physician Assistant Medical; Emergency Provider Emergency Medicine; PCP Internal Medicine
DX: U07.1 COVID-19 (principal); R50.9 Fever, unspecified; Z79.899 Other long term (current) drug therapy
CPT/HCPCS: 71046; 80053; 83735; 85025; 87635; 99282; 99283

== ENCOUNTER 2023-03-22 15:58 | Outpatient (REF) | payer OTHER, SELFPAY ==
--- NOTE | ~2023-03-22 | XR_ITS ---
EXAMINATION: XR CHEST CLINICAL INFORMATION: Reason for Exam cough, chest pain, COVID positive COMPARISON: Chest radiograph 03/16/2023 TECHNIQUE: 2 views of the chest FINDINGS: Lines and tubes: Right upper quadrant cholecystectomy clips. Clear lungs. No pleural effusion. No pneumothorax. Unchanged cardiomediastinal silhouette. XR/XR chest 2V IMPRESSION: * Clear lungs.
== END 2023-03-22 15:59 | disposition home or self-care (01) ==
LOC: HO.XRAY 15:58
PROVIDERS: PCP Internal Medicine; Visit Provider Internal Medicine
DX: U07.1 COVID-19 (principal)
CPT/HCPCS: 71046

== ENCOUNTER 2023-07-31 14:02 | Outpatient (AMB) | payer OTHER, SELFPAY ==
--- NOTE | 2023-07-31 14:14 | A.OFFVIS_ITS ---
Intake Vital Signs 3 07/31/23 14:17 Height 5 ft Weight 112 lb 14.027 oz BMI 22.0 BP 146/77 H Blood Pressure Location Lt brachial Position Sitting Pulse 73 Intake Visit Reasons: Abdominal discomfort Intake Note: Patient presents to in office visit today for abdominal discomfort and positive cologuard. CC: Patient c/o lower abdominal pain with radiation to her back for about 2 months. She also reports she had a positive cologuard done about 2 months ago. Patient c/o occasional constipation and diarrhea, and nausea. Allergies doxycycline Allergy (Mild, Verified 09/03/23 15:03) Itching Penicillins Allergy (Mild, Verified 09/03/23 15:03) RASH Sulfa (Sulfonamide Antibiotics) [Sulfa (Sulfonamides)] Allergy (Mild, Verified 09/03/23 15:03) RASH hydromorphone [From DILAUDID] Allergy (Unknown, Verified 09/03/23 15:03) NAUSEA & VOMITING HPI Abdominal discomfort 2 HPI0 Details Assessment & Plan (1) Constipation: ?Code(s): K59.00 - Constipation, unspecified ?Plan - Estela Fang, TORREY-C: MONTENEGRIN #[id number]. She tells me that she has been ill with bronchitis. She was rx'ed doxycycline, but this caused a vaginal yeast infection and body wide rash/itching. She says she asked the prescriber to send a cream but this is not covered by her insurance. As a courtesy, I will rx diflucan as a one time dose. She is educated about this. she asks if she can take benadryl, I say she can but if the itching is largely andreas it may not be helpful. The abx also gave her diarrhea, so her CIC is not a problem now. Her GERD has been okay. I advise her to take a probiotic supplement or eat? yogurt, she eats Activia. ?she continues on her pantoprazole 40 mg twice a day and has not had too much trouble with heartburn despite all of these other problems.? She still has senna available for her constipation once the acute/iatrogenic diarrhea resolved. I encouraged her to follow-up with her primary care provider the Diflucan does not resolve her vaginal Andreas and generalized itching.? She is agreeable to a 6 month follow-up with me concerning her GI conditions. (2) GERD (gastroesophageal reflux diseas e): ?Code(s): K21.9 - Gastro-esophageal reflux disease without esophagitis (3) Vaginal andreas: ?Code(s): B37.3 - Candidiasis of vulva and vagina ? ? ? Medications:?New: A? fluconazole (Diflu can) 200 mg? PO DAILY 1 day 1 tab 0RF ? ? Laboratory Tests 03/16/23 14:12 WBC 5.1 Hgb 13.3 Hct 40.7 Plt Count 207 Total Bilirubin 0.6 AST 45 H ALT 33 H Alkaline Phosphata se 90 TODAY'S VISIT MONTENEGRIN #Bruce Talbot Her yeast infection has resolved. She has CIC alt with diarrhea but this has been her baseline for a while. HEr GERD is bad because she does not have her protonix as she has not seen me since 2020. She is due for screening colonoscopy so we will get this in the works as well. She HAS VERY LOW RENAL FXN AND NEEDS RENAL CLEARANCE FOR PREP AND PROCEDURE, Dr. Metz. She denies any cardiac or respiratory problems. There are no prior problems with anesthesia or sedation. There are no infectious disease problems. The there is some confusion the record of it appears that she had 4 hyperplastic polyps in 2016 but a remote history of a serrated adenoma. [facility] Medical History (Updated 09/05/23 @ 15:56 by FLORENTINO Tapia) Serrated adenoma of colon Gallbladder & bile duct stone with obstruction High cholesterol Hyperkalemia Hypertension Kidney failure Diabetes Surgical History (System 09/03/23 @ 15:03 by Graciela Jimenez) Hx of colonoscopy History of bladder surgery Family History Father Diabetes Heart attack Mother Diabetes Alzheimer disease Family/Other Diabetes Social History (System 09/03/23 @ 15:03 by Graciela Jimenez) Household Members: None Alcohol intake: never Cigarettes Per Day: 4 Review of Systems Const Denies fatigue, Denies fever(s), Denies night sweats, Denies poor appetite and Denies weight loss ENT Reports Normal hearing present, Denies dental pain, Denies dysphagia, Denies hearing loss, Denies mouth pain, Denies odynophagia, Denies throat swelling, Denies tongue swelling and Reports other (Dentition adequate) Card Reports no additional complaints Resp Reports no additional complaints GI Denies abdominal pain, Denies melena, Denies bloating, Denies hematochezia, Reports constipation, Denies GI cramping, Denies dysphagia, Denies excessive flatus, Denies early satiety, Reports heartburn, Reports diarrhea, Denies nausea, Denies odynophagia, Denies vomiting and Denies hematemesis Musc Reports back pain and Reports arthralgias Skin/Breast Denies pruritus, Denies lesions, Denies rash and Denies jaundice Neuro Reports Normal hearing present and Denies Abnormal speech present Endo Denies fatigue Aller/Immun Denies throat swelling and Denies tongue swelling Physical Exam Vital Signs: Last Vital Signs Pulse 73 07/31/23 14:17 BP 146/77 H 07/31/23 14:17 BMI result Body Mass Index 22.0 Const General: cooperative, no acute distress, well developed and well groomed Nutritional Appearance: average body habitus and well nourished Orientation/consciousness: oriented to person, oriented to place and oriented to time Limitations: language barrier HEENT Head: Yes normocephalic and Yes atraumatic Eyes General: appearance normal, both eyes and all related structures Pupils: Equal, round and reactive pupils present Neck Neck: Yes normal visual inspection and Yes no lymphadenopathy Thyroid: Thyroid normal Resp Effort & Inspection: normal respiratory effort and able to speak in complete sentences Auscultation: clear to auscultation bilaterally Cardio Rate: regular rate Rhythm: regular rhythm Heart sounds: Normal, physiologic split S2 sound present Peripheral pulses: radial pulses present and posterior tibial pulses present GI Inspection: No distended, No Abdominal panniculus present and Yes striae Palpation (GI): Soft to palpation, nontender, no guarding, not rigid and No hepatosplenomegaly present Percussion: Yes normal to percussion Auscultation: normal bowel sounds Rectal Exam - Female: deferred Abdomen image: 2 1. surgical scar Skin General skin exam: no rashes or lesions noted, turgor normal, skin not dry, no jaundice, No spider nevi and no striae Rashes: no rashes Nails: normal Neuro General: oriented to person, oriented to place and oriented to time Cranial nerves: Yes Equal, round and reactive pupils present and Yes Normal hearing present Speech: No Abnormal speech present Extrem General: Yes normal to inspection, No clubbing, No cyanosis and No edema Psych Appearance: grossly normal and well kempt Mental Status: mental status grossly normal Speech and movement: Normal speech and movement present Affect: normal affect Attitude: cooperative Thought process: Normal thought process present and not confabulating Thought content: Normal thought content present Insight: Limited insight present (Psych) Judgement: Limited judgement present (Psych) Assessment & Plan Assessment & Plan (1) Constipation: Code(s): K59.00 - Constipation, unspecified (2) GERD (gastroesophageal reflux disease): Code(s): K21.9 - Gastro-esophageal reflux disease without esophagitis (3) Serrated adenoma of colon: Code(s): D12.6 - Benign neoplasm of colon, unspecified (4) Pre-op examination: Code(s): Z01.818 - Encounter for other preprocedural examination Plan MONTENEGRIN #Bruce Live Her yeast infection has resolved. She has CIC alt with diarrhea but this has been her baseline for a while. HEr GERD is bad because she does not have her protonix as she has not seen me since 2020. She is due for screening colonoscopy so we will get this in the works as well. She HAS VERY LOW RENAL FXN AND NEEDS RENAL CLEARANCE FOR PREP AND PROCEDURE, Dr. Metz. She denies any cardiac or respiratory problems. There are no prior problems with anesthesia or sedation. There are no infectious disease problems. The there is some confusion the record of it appears that she had 4 hyperplastic polyps in 2016 but a remote history of a serrated adenoma. Orders: Orders 2 Colonoscopy - GI Use Only 07/31/23 N18.4 - Chronic kidney disease, stage 4 (severe) Medications: New 2 peg 3350-electrolytes 236-22.74-6.74 -5.86 gram (Golytely) until fecal effluent is clear; do not exceed a total volume of 2,000 mL 240 mL PO Q10M 4,000 mL 0RF 1 day Z12.11 - Encounter for screening for malignant neoplasm of colon Refilled 2 docusate sodium 100 mg PO DAILY 30 caps 3RF sennosides (senna) 17.2 mg (2 x 8.6 mg) PO BEDTIME 60 tabs 3RF for constipation pantoprazole 40 mg PO BID 180 tabs 2RF K21.9 - Gastro-esophageal reflux disease without esophagitis Coding Level of Care Code Est Pt Level 4 (43458) Diagnoses Constipation K59.00 GERD (gastroesophageal reflux disease) K21.9 Serrated adenoma of colon D12.6 Pre-op examination Z01.818
[2023-07-31 14:17] VITALS: BP 146/77; PULSE 73; BMI 22.0
== END 2023-07-31 15:14 | disposition home or self-care (01) ==
PROVIDERS: PCP Internal Medicine; Visit Provider Nurse Practitioner
DX: K59.00 Constipation, unspecified (principal); K21.9 Gastro-esophageal reflux disease without esophagitis; D12.6 Benign neoplasm of colon, unspecified; Z01.818 Encounter for other preprocedural examination
CPT/HCPCS: 99214

== ENCOUNTER → 2023-07-31 14:02 | Outpatient (BNVA) | payer OTHER, SELFPAY | PROVIDERS: PCP Internal Medicine; Visit Provider Nurse Practitioner | DX: Z01.818 Encounter for other preprocedural examination (principal); K59.00 Constipation, unspecified; K21.9 Gastro-esophageal reflux disease without esophagitis; D21.9 Benign neoplasm of connective and other soft tissue, unspecified | CPT/HCPCS: 99212 ==

== ENCOUNTER 2023-08-10 13:50 | Emergency (ER) | payer OTHER, SELFPAY ==
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
[2023-08-10 14:38] VITALS: BP 137/56; PULSE 65; RESP 16; TEMP 36.6; O2SAT 99; BMI 21.9
== END 2023-08-10 17:11 | disposition home or self-care (01) ==
PROVIDERS: Emergency Provider Emergency Medicine; PCP Internal Medicine
DX: S06.0X0A Concussion without loss of consciousness, initial encounter (principal); S90.32XA Contusion of left foot, initial encounter; M54.2 Cervicalgia; R51.9 Headache, unspecified; V43.52XA Car driver injured in collision with other type car in traffic accident, initial encounter; Y93.9 Activity, unspecified; Y92.410 Unspecified street and highway as the place of occurrence of the external cause; Y99.9 Unspecified external cause status; Z79.899 Other long term (current) drug therapy
CPT/HCPCS: 70450; 72125; 73630; 99284

== ENCOUNTER 2023-08-31 11:34 | Outpatient (REF) | payer OTHER, SELFPAY ==
[2023-08-31 14:56] LABS: Anion Gap 10 (12-20); Blood Urea Nitrogen 11 mg/dL (9-16); Calcium 9.2 mg/dL (8.4-10.2); Carbon Dioxide 26 mmol/L (22-29); Chloride 110 mmol/L (96-108); Estimated Glomerular Filt Rate 39; Glucose Random 143 mg/dL (60-115); Potassium 4.6 mmol/L (3.3-5.1); Sodium 141 mmol/L (135-145)
== END 2023-08-31 11:35 | disposition home or self-care (01) ==
LOC: HO.HHCL 11:34
PROVIDERS: Visit Provider Internal Medicine
DX: N18.32 Chronic kidney disease, stage 3b (principal)
CPT/HCPCS: 36415; 80048

== ENCOUNTER 2023-09-12 14:05 | Outpatient (AMB) | payer OTHER, SELFPAY ==
[2023-09-12 14:14] VITALS: BP 138/80; PULSE 64; BMI 22.2
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
== END 2023-09-12 14:57 | disposition home or self-care (01) ==
PROVIDERS: PCP Internal Medicine; Visit Provider Nurse Practitioner
DX: K59.00 Constipation, unspecified (principal); K21.9 Gastro-esophageal reflux disease without esophagitis; D12.6 Benign neoplasm of colon, unspecified; I82.A11 Acute embolism and thrombosis of right axillary vein
CPT/HCPCS: 99213

== ENCOUNTER → 2023-09-12 14:05 | Outpatient (BNVA) | payer OTHER, SELFPAY | PROVIDERS: PCP Internal Medicine; Visit Provider Nurse Practitioner | DX: K59.00 Constipation, unspecified (principal); K21.9 Gastro-esophageal reflux disease without esophagitis; I82.A11 Acute embolism and thrombosis of right axillary vein; D12.6 Benign neoplasm of colon, unspecified | CPT/HCPCS: 99212 ==

== ENCOUNTER 2023-11-02 15:19 | Emergency (ER) | payer OTHER, SELFPAY ==
[2023-11-02 15:45] VITALS: BP 178/84; PULSE 63; RESP 18; TEMP 36; O2SAT 98; BMI 21.9
--- NOTE | 2023-11-02 16:34 | ECG_ITS ---
Test Reason : HIGH BP Blood Pressure : / mmHG Vent. Rate : 052 BPM Atrial Rate : 052 BPM P-R Int : 148 ms QRS Dur : 064 ms QT Int : 418 ms P-R-T Axes : 057 009 019 degrees QTc Int : 388 ms Sinus bradycardia Nonspecific T wave abnormality Abnormal ECG When compared to the previous EKG of 28 jun 2014, Nonspecific ST and T wave abnormality present Referred By: Cassidy Henderson Electronically Signed By:SURESH BLANCO
[2023-11-02 16:50] LABS: MANUAL DIFF FLAG NO
[2023-11-02 16:51] LABS: Basophils Absolute Auto 0.1 X10*3/uL (0.0-0.2); Basophils Percent Auto 1.3 % (0-2); Eosinophils Absolute Auto 0.3 X10*3/uL (0.0-0.4); Eosinophils Percent Auto 3.8 % (0-4); Hematocrit 41.2 % (37.0-47.0); Hemoglobin 13.4 g/dl (12.0-16.0); Imm Gran Abs Auto 0.02 X10*3/uL (0.00-0.03); Imm Gran Pct Auto 0.3 % (0.0-0.4); Lymphocytes Absolute Auto 3.4 X10*3/uL (1.2-4.9); Mean Corpuscular HGB Conc 32.5 g/dl (31.0-35.0); Mean Corpuscular Volume 92.4 fL (80.0-98.0); Mean Platelet Volume 9.1 fL (9.4-12.3); Monocytes Absolute Auto 0.5 X10*3/uL (0.1-1.2); Monocytes Percent Auto 6.2 % (2-11); Neutrophils Absolute Auto 3.4 x10*3/uL (2.0-8.3); Neutrophils Percent Auto 44.4 % (45-73); Platelet Count 267 X10*3/uL (160-400); Red Blood Count 4.46 X10*6/uL (4.20-5.50); Red Cell Distribution Width 12.6 % (11.0-16.0); White Blood Count 7.7 X10*3/uL (4.8-10.8)
[2023-11-02 17:04] LABS: Alanine Aminotransferase 12 U/L (0-31); Albumin Level 4.1 g/dL (3.5-5.0); Alkaline Phosphatase 113 U/L (39-117); Anion Gap 12 (12-20); Aspartate Amino Transferase 17 U/L (5-31); Bilirubin Total 0.4 mg/dL (0.0-1.0); Blood Urea Nitrogen 12 mg/dL (9-16); Calcium 9.3 mg/dL (8.4-10.2); Carbon Dioxide 26 mmol/L (22-29); Chloride 106 mmol/L (96-108); Creatinine Clr Calc Pharmacy 31.6; Estimated Glomerular Filt Rate 48; Glucose Random 95 mg/dL (60-115); Potassium 4.6 mmol/L (3.3-5.1); Sodium 139 mmol/L (135-145); Total Protein 7.7 g/dL (6.5-8.0)
[2023-11-02 21:13] VITALS: BP 199/88; PULSE 57; RESP 16; TEMP 36.2; O2SAT 100
--- NOTE | 2023-11-02 21:18 | ED_ITS ---
HPI - General Adult General Chief complaint: General Medical Stated complaint: high blood pressure 200- 20 mins ago Time Seen by Provider: 11/02/23 21:18 Source: patient Mode of arrival: ambulatory Limitations: no limitations History of Present Illness HPI narrative: Patient with history of hypertension on losartan 50 mg metoprolol and spironolactone usually blood pressure well controlled was at PCP office today blood pressure was running in 200 currently blood pressure is 206/92 with pulse rate of 66 patient does have anxiety but has taken her medication in the morning and also taking her medication for blood pressure no chest pain or shortness of breath no palpitation no headache does have increased stress at home but never had such high blood pressure in past Related Data Home Medications Medication Instructions Recorded Confirmed cholecalciferol (vitamin D3) 50 50 mcg PO DAILY 07/31/23 mcg (2,000 unit) tablet (Vitamin D3) diphenhydramine HCl 25 mg tablet 25 mg PO BEDTIME 07/31/23 (Banophen) fluticasone propionate 50 spray intranasal 07/31/23 mcg/actuation nasal spray,suspension glipizide 2.5 mg tablet, extended mg PO 07/31/23 release 24 hr lorazepam 0.5 mg tablet 0.5 mg PO TID PRN 07/31/23 losartan 50 mg tablet 50 mg PO DAILY 07/31/23 methenamine hippurate 1 gram tablet 1 g PO BID 07/31/23 metoprolol succinate 50 mg 50 mg PO DAILY 07/31/23 tablet,extended release 24 hr oxybutynin chloride 15 mg 15 mg PO DAILY 07/31/23 tablet,extended release 24 hr simvastatin 10 mg tablet 10 mg PO DAILY 07/31/23 spironolactone 25 mg tablet 25 mg PO BID 07/31/23 apixaban 5 mg tablet (Eliquis) mg PO 09/12/23 aspirin 81 mg tablet,delayed 81 mg PO DAILY 09/12/23 release doxycycline monohydrate 100 mg 100 mg PO BID 09/12/23 capsule fluconazole 150 mg tablet 150 mg PO Q3D 09/12/23 oxycodone 5 mg tablet 5 mg PO QID PRN 09/12/23 Previous Rx's Medication Instructions Recorded albuterol sulfate 90 mcg/actuation 2 puff inhalation Q4-6H PRN 03/11/21 aerosol inhaler (Proventil HFA) shortness of breath or wheezing #8.5 grams ondansetron 4 mg disintegrating 4 mg PO Q6H PRN nausea and 03/16/23 tablet vomiting #15 tabs peg 3350-electrolytes 236 240 ml PO Q10M 1 day #4,000 mL 07/31/23 gram-22.74 gram-6.74 gram-5.86 gram solution (Golytely) acetaminophen 500 mg capsule 500 mg PO QID PRN fever #14 caps 08/10/23 docusate sodium 100 mg capsule 100 mg PO DAILY #30 caps 09/12/23 pantoprazole 40 mg tablet,delayed 40 mg PO BID #180 tabs 09/12/23 release sennosides 8.6 mg tablet (senna) 17.2 mg (2 x 8.6 mg) PO BEDTIME 09/12/23 for constipation #60 tabs Allergies Allergy/AdvReac Type Severity Reaction Status Date / Time ceftriaxone Allergy Severe Anaphylaxis Verified 11/02/23 15:49 doxycycline Allergy Mild Itching Verified 11/02/23 15:49 Penicillins Allergy Mild RASH Verified 11/02/23 15:49 Sulfa (Sulfonamide Allergy Mild RASH Verified 11/02/23 15:49 Antibiotics) [Sulfa (Sulfonamides)] hydromorphone [From DILAUDID] Allergy Unknown NAUSEA & Verified 11/02/23 15:49 VOMITING Review of Systems 2 Review of Systems: Yes all other systems are reviewed and are negative [facility] Past Medical History Medical History Serrated adenoma of colon Gallbladder & bile duct stone with obstruction High cholesterol Hyperkalemia Hypertension Kidney failure Diabetes Surgical History Hx of colonoscopy History of bladder surgery Family History Family History Father Diabetes Heart attack Mother Diabetes Alzheimer disease Family/Other Diabetes Social History Social History Household Members: None Alcohol intake: never Cigarettes Per Day: 4 Smoked in Last 30 Days: No Use of substances other than those prescribed or required for medical reasons: No Advance Directives: No Advance Directives Information Provided: No Physical Exam ED Vital Signs: Vital Signs - 24 hr 11/02/23 15:45 11/02/23 21:13 11/02/23 21:25 Temperature 96.8 F 97.2 F Pulse Rate 63 57 67 Respiratory Rate 18 16 Blood Pressure 178/84 H 199/88 H 207/85 H Pulse Oximetry 98 100 Oxygen Delivery Method Room Air Room Air 11/02/23 21:27 11/02/23 21:27 11/02/23 21:28 Temperature Pulse Rate 67 64 66 Respiratory Rate Blood Pressure 207/85 H 221/92 H 206/92 H Pulse Oximetry Oxygen Delivery Method 11/02/23 23:08 11/03/23 00:40 Temperature Pulse Rate 59 56 Respiratory Rate 18 16 Blood Pressure 197/88 H 167/71 H Pulse Oximetry 99 97 Oxygen Delivery Method Room Air Room Air BMI result Body Mass Index 21.9 Appearance: Alert. Oriented X3. No acute distress. Eyes: PERRLA, No Nystagmus ENT: Pharynx normal. Oral Mucosa moist Neck: Normal inspection. Neck supple. CVS: Normal heart rate and rhythm. Pulses normal. Respiratory: No respiratory distress. Equal air entry bilateral, no wheezing/rales/rhonchi Abdomen: Soft and nontender. Bowel sounds are present, no mass palpable, no CVA tenderness Skin: Skin warm and dry. Normal skin color. Normal skin turgor. Extremities: No lower extremity edema. No calf tenderness Neuro: Oriented X 3. No motor deficit. No sensory deficit.No cerebellar signs , cranial nerves II-XII intact Medications Administered Discontinued Medications Generic Name Dose Route Start Last Admin Trade Name Freq PRN Reason Stop Dose Admin Lorazepam 0.5 mg 11/02/23 21:28 11/02/23 22:04 Lorazepam 1 Mg Tablet PO 11/02/23 21:29 0.5 mg ONCE ONE Administration Losartan Potassium 50 mg 11/02/23 21:28 11/02/23 22:04 Losartan Potassium 50 Mg Tablet PO 11/02/23 21:29 50 mg ONCE ONE Administration Protocol Medical Decision Making Medical Decision Making [facility] Narrative: Patient with elevated blood pressure without any end-organ damage improved after taking extra losartan will increase the dose of losartan to 100 mg advised to follow with her PCP/cardiology Lab Data [facility] Lab Attestation statement: I reviewed the patient's lab results. 11/02/23 16:46 11/02/23 16:46 Labs: Lab Results 11/02/23 Range/Units 16:46 WBC 7.7 (4.8-10.8) X10*3/uL RBC 4.46 (4.20-5.50) X10*6/uL Hgb 13.4 (12.0-16.0) g/dl Hct 41.2 (37.0-47.0) % MCV 92.4 (80.0-98.0) fL MCH 30.0 (27.0-33.0) pg MCHC 32.5 (31.0-35.0) g/dl RDW 12.6 (11.0-16.0) % Plt Count 267 D (160-400) X10*3/uL MPV 9.1 L (9.4-12.3) fL Immature Gran % (Auto) 0.3 (0.0-0.4) % Neut % (Auto) 44.4 L (45-73) % Lymph % (Auto) 44.0 H (20-40) % [place] % (Auto) 6.2 (2-11) % Eos % (Auto) 3.8 (0-4) % Baso % (Auto) 1.3 (0-2) % Lymph # (Auto) 3.4 (1.2-4.9) X10*3/uL [place] # (Auto) 0.5 (0.1-1.2) X10*3/uL Eos # (Auto) 0.3 (0.0-0.4) X10*3/uL Baso # (Auto) 0.1 (0.0-0.2) X10*3/uL Abs Immat Gran (auto) 0.02 (0.00-0.03) X10*3/uL Absolute Neuts (auto) 3.4 (2.0-8.3) x10*3/uL Absolute Nucleated RBC 0.000 (0.0-0.012) X10*3/uL Nucleated RBC % (auto) 0.0 (0.0-0.2) /100WBC Sodium 139 (135-145) mmol/L Potassium 4.6 (3.3-5.1) mmol/L Chloride 106 (96-108) mmol/L Carbon Dioxide 26 (22-29) mmol/L Anion Gap 12 (12-20) BUN 12 (9-16) mg/dL Creatinine 1.12 (0.5-1.4) mg/dL Estim Creat Clear Calc 31.6 Estimated GFR 48 Random Glucose 95 (60-115) mg/dL Calcium 9.3 (8.4-10.2) mg/dL Total Bilirubin 0.4 (0.0-1.0) mg/dL AST 17 (5-31) U/L ALT 12 (0-31) U/L Alkaline Phosphatase 113 (39-117) U/L Total Protein 7.7 (6.5-8.0) g/dL Albumin 4.1 (3.5-5.0) g/dL Discharge Plan Discharge Clinical Impression: Hypertension Patient Disposition: Home, Self-Care Instructions: Chronic Hypertension (ED) Additional Instructions: Continue your medications Increased her dose of losartan to 100 mg daily Check blood pressure in a.m. before taking the medicine and in the p.m. before going to bed Normal blood pressure should be less than 135/85 Follow with PCP Prescriptions: No Action albuterol sulfate [Proventil HFA] 90 mcg/actuation HFA aerosol inhaler 2 puff inhalation Q4-6H PRN (Reason: shortness of breath or wheezing) Qty: 8.5 0RF ondansetron 4 mg tablet,disintegrating 4 mg PO Q6H PRN (Reason: nausea and vomiting) Qty: 15 0RF acetaminophen 500 mg capsule 500 mg PO QID PRN (Reason: fever) Qty: 14 0RF diphenhydramine HCl [Banophen] 25 mg tablet 25 mg PO BEDTIME lorazepam 0.5 mg tablet 0.5 mg PO TID PRN glipizide 2.5 mg tablet extended release 24hr PO spironolactone 25 mg tablet 25 mg PO BID metoprolol succinate 50 mg tablet extended release 24 hr 50 mg PO DAILY losartan 50 mg tablet 50 mg PO DAILY fluticasone propionate 50 mcg/actuation spray,suspension intranasal cholecalciferol (vitamin D3) [Vitamin D3] 50 mcg (2,000 unit) tablet 50 mcg PO DAILY methenamine hippurate 1 gram tablet 1 g PO BID simvastatin 10 mg tablet 10 mg PO DAILY oxybutynin chloride 15 mg tablet extended release 24hr 15 mg PO DAILY peg 3350-electrolytes [Golytely] 236-22.74-6.74 -5.86 gram recon soln 240 ml PO Q10M 1 Days Qty: 4000 0RF Rx Instructions: until fecal effluent is clear; do not exceed a total volume of 2,000 mL aspirin 81 mg tablet,delayed release (DR/EC) 81 mg PO DAILY doxycycline monohydrate 100 mg capsule 100 mg PO BID Eliquis 5 mg tablet PO oxycodone 5 mg tablet 5 mg PO QID PRN fluconazole 150 mg tablet 150 mg PO Q3D docusate sodium 100 mg capsule 100 mg PO DAILY Qty: 30 6RF pantoprazole 40 mg tablet,delayed release (DR/EC) 40 mg PO BID Qty: 180 2RF sennosides [senna] 8.6 mg tablet 17.2 mg PO BEDTIME Qty: 60 6RF
[2023-11-02 21:25] VITALS: BP 207/85; PULSE 67
[2023-11-02 21:27] VITALS: BP 207/85; BP 221/92; PULSE 64; PULSE 67
[2023-11-02 21:28] VITALS: BP 206/92; PULSE 66
[2023-11-02] MEDS: Losartan Potassium 50 MG TABLET PO (22:04)
[2023-11-02] MEDS: LORazepam 1 MG TABLET 0.5 MG PO (22:04)
--- NOTE | 2023-11-02 22:22 | PC.NURSE ---
pt has no sx. no headache. no blurred visin. just took her own meds in addition to ED meds (metoprolol 50mg and spironolactone 25). Provider saray benitez.
[2023-11-02 23:08] VITALS: BP 197/88; PULSE 59; RESP 18; O2SAT 99
[2023-11-03 00:40] VITALS: BP 167/71; PULSE 56; RESP 16; O2SAT 97
== END 2023-11-03 01:20 | disposition home or self-care (01) ==
PROVIDERS: Nurse Practitioner Family; Emergency Provider Internal Medicine; PCP Internal Medicine
DX: E11.22 Type 2 diabetes mellitus with diabetic chronic kidney disease (principal); I12.9 Hypertensive chronic kidney disease with stage 1 through stage 4 chronic kidney disease, or unspecified chronic kidney disease; N18.30 Chronic kidney disease, stage 3 unspecified; E78.00 Pure hypercholesterolemia, unspecified; Z86.718 Personal history of other venous thrombosis and embolism; F17.210 Nicotine dependence, cigarettes, uncomplicated; Z79.899 Other long term (current) drug therapy; Z79.01 Long term (current) use of anticoagulants; Z79.82 Long term (current) use of aspirin; Z79.02 Long term (current) use of antithrombotics/antiplatelets
CPT/HCPCS: 36415; 80053; 85025; 93005; 99283; 99285

== ENCOUNTER → 2023-11-02 16:34 | Outpatient (BNV) | payer OTHER, SELFPAY | PROVIDERS: Emergency Provider Internal Medicine; PCP Internal Medicine; Visit Provider Internal Medicine | DX: I10 Essential (primary) hypertension (principal) | CPT/HCPCS: 93010 ==

== ENCOUNTER 2023-11-16 18:31 | Outpatient (REF) | payer OTHER, SELFPAY | END 2023-11-16 18:32 | disposition home or self-care (01) | LOC: HO.HHCLNP 18:31 | PROVIDERS: Visit Provider Internal Medicine Geriatric Medicine | DX: Z13.89 Encounter for screening for other disorder (principal) ==

== ENCOUNTER 2023-11-28 10:20 | Outpatient (REF) | payer OTHER, SELFPAY ==
--- NOTE | ~2023-11-28 | XR_ITS ---
EXAMINATION: XR FOOT, LEFT CLINICAL INFORMATION: Pain COMPARISON: Left foot x-rays August 10, 2023 TECHNIQUE: AP, lateral, and oblique views of the left foot. FINDINGS: Bones of the midfoot are well aligned. No tarsal, metatarsal or phalangeal fracture. No significant degenerative changes of the left foot. Small posterior calcaneal enthesophytes. No localized soft tissue swelling of the foot. No gross ankle joint effusion. XR/XR foot LT min 3V IMPRESSION: Minimal degenerative changes of the left foot.
== END 2023-11-28 10:21 | disposition home or self-care (01) ==
LOC: HO.XRAY 10:20
PROVIDERS: PCP Internal Medicine; Visit Provider Nurse Practitioner Adult Health
DX: M79.672 Pain in left foot (principal)
CPT/HCPCS: 73630

== ENCOUNTER 2024-05-07 13:02 | Outpatient (AMB) | payer OTHER, SELFPAY ==
[2024-05-07 13:08] VITALS: BP 134/68; PULSE 67
--- NOTE | 2024-05-07 13:08 | A.OFFVIS_ITS ---
Vital Signs 3 05/07/24 13:08 Weight 111 lb 8.862 oz BP 134/68 Blood Pressure Location Lt brachial Position Sitting Pulse 67 Intake Visit Reasons: 6 months f/u Intake Note: Patient here to f/u constipation. Reports improvement since taking senna rx. Patient reports acid reflux under control. Pantoprazole helping. Recent bypass surgery in March at [facility]. Unable to get colonoscopy due to blood thinners. Cash Processor Required: Yes Accompanied by: Self / Same As Patient Allergies ceftriaxone Allergy (Severe, Verified 05/07/24 13:15) Anaphylaxis doxycycline Allergy (Mild, Verified 05/07/24 13:15) Itching Penicillins Allergy (Mild, Verified 05/07/24 13:15) RASH Sulfa (Sulfonamide Antibiotics) [Sulfa (Sulfonamides)] Allergy (Mild, Verified 05/07/24 13:15) RASH hydromorphone [From DILAUDID] Allergy (Unknown, Verified 05/07/24 13:15) NAUSEA & VOMITING HPI HPI 6 months f/u: Details: Assessment & Plan (1) Constipation: Code(s): K59.00 - Constipation, unspecified (2) GERD (gastroesophageal reflux disease): Code(s): K21.9 - Gastro-esophageal reflux disease without esophagitis (3) Serrated adenoma of colon: Code(s): D12.6 - Benign neoplasm of colon, unspecified (4) DVT of axillary vein, acute right: Comment: 09/2022 in toe Code(s): I82.A11 - Acute embolism and thrombosis of right axillary vein Plan [place] #[id number] She says she was hospitalized with a blood clot in her toe and then she had a bad reaction to a medication. This has further decreased her renal status. This was a bad reaction to an antibiotic. She has been home just about a month. I inform her that we are waiting for her to call us back to schedule the procedure when she feels better, but then she points out that she is currently on blood thinners, and usually after an DVT they do not want this to be stopped until there has been 6 mos of therapy. She is on Eliquis. She was hospitalized at [facility]. She continues to do well on her GI regimen. She continues on her pantoprazole 40 mg once a day and on her Colace and senna with good control of her constipation. ROV 6 mos and consider scheduling colonoscopy at that time. Medications: Refilled docusate sodium 100 mg PO DAILY 30 caps 6RF sennosides (senna) 17.2 mg (2 x 8.6 mg) PO BEDTIME 60 tabs 6RF for constipation pantoprazole 40 mg PO BID 180 tabs 2RF K21.9 - Gastro-esophageal reflux disease without esophagitis Laboratory Tests 11/02/23 16:46 WBC 7.7 Hgb 13.4 Hct 41.2 Plt Count 267 D Estimated GFR 48 Total Bilirubin 0.4 AST 17 ALT 12 Alkaline Phosphatase 113 COLONOSCOPY BIOPSY TODAY'S VISIT [place] #[id number] She says she has had 4 surgeries between IVC filter and a (? fem/pop) bypass she is still recovering from this. She has lower abd pain r/t this and numbness in her groins and upper legs. She continues on her pantoprazole 40 mg once a day and on her Colace and senna with good control of her constipation. She had a period of severe CIC after the surgery and they thought they may have to remove this with a machine, but then she started moving her bowels again. She has a new medication which is Eliquis. This is prescribed by a Dr. Dill at [facility] at [address] - we would need clearance before considering repeat colonoscopy. We will consider discussing this further in 6 mos as she recovers. She also has suffered the recent of her daughter. ROV 6 mos. [facility] Medical History Serrated adenoma of colon Gallbladder & bile duct stone with obstruction High cholesterol Hyperkalemia Hypertension Kidney failure Diabetes Surgical History Hx of colonoscopy History of bladder surgery Family History Father Diabetes Heart attack Mother Diabetes Alzheimer disease Family/Other Diabetes Social History Household Members: None Alcohol intake: never Cigarettes Per Day: 4 Review of Systems Const Denies fatigue, Denies fever(s), Denies night sweats, Denies poor appetite and Denies weight loss ENT Reports Normal hearing present, Denies dental pain, Denies dysphagia, Denies hearing loss, Denies mouth pain, Denies odynophagia, Denies throat swelling, Denies tongue swelling and Reports other (Dentition adequate) Card Reports no additional complaints Resp Reports no additional complaints GI Details: Reports abdominal pain (From healing surgeries mostly in the groin), Denies melena, Reports bloating, Denies hematochezia, Reports constipation, Denies GI cramping, Denies dysphagia, Denies excessive flatus, Denies early satiety, Reports heartburn, Denies diarrhea, Denies nausea, Denies odynophagia, Denies vomiting and Denies hematemesis Skin/Breast Denies pruritus, Denies lesions, Denies rash and Denies jaundice Neuro Reports Normal hearing present and Denies Abnormal speech present Endo Denies fatigue Aller/Immun Denies throat swelling and Denies tongue swelling Physical Exam Vital Signs: Last Vital Signs Pulse 67 05/07/24 13:08 BP 134/68 05/07/24 13:08 Const General: cooperative, no acute distress, well developed and well groomed Nutritional Appearance: average body habitus and well nourished Orientation/consciousness: oriented to person, oriented to place and oriented to time Limitations: language barrier HEENT Head: Yes normocephalic and Yes atraumatic Eyes General: appearance normal, both eyes and all related structures Pupils: Equal, round and reactive pupils present Neck Neck: Yes normal visual inspection and Yes no lymphadenopathy Thyroid: Thyroid normal Resp Effort & Inspection: normal respiratory effort and able to speak in complete sentences Auscultation: clear to auscultation bilaterally Cardio Rate: regular rate Rhythm: regular rhythm Heart sounds: Normal, physiologic split S2 sound present Peripheral pulses: radial pulses present and posterior tibial pulses present GI Inspection: No distended and No Abdominal panniculus present Palpation (GI): Soft to palpation, Tenderness to palpation present (GI) (Lower abdomen and groin areas), no guarding, not rigid and No hepatosplenomegaly present Percussion: Yes normal to percussion Auscultation: normal bowel sounds Rectal Exam - Female: deferred Abdomen image: 2 1. well healing surgical scars 2. 3. remote well healed scar Skin General skin exam: no rashes or lesions noted, turgor normal, skin not dry, no jaundice, No spider nevi and no striae Rashes: no rashes Nails: normal Neuro General: oriented to person, oriented to place and oriented to time Cranial nerves: Yes Equal, round and reactive pupils present and Yes Normal hearing present Speech: No Abnormal speech present Extrem General: Yes normal to inspection, No clubbing, No cyanosis and No edema Psych Appearance: grossly normal and well kempt Mental Status: mental status grossly normal Speech and movement: Normal speech and movement present Affect: normal affect Attitude: cooperative Thought process: Normal thought process present and not confabulating Thought content: Normal thought content present Insight: Fair insight present (Psych) Judgement: Fair judgement present (Psych) Assessment & Plan Assessment & Plan (1) Pre-op examination: Code(s): Z01.818 - Encounter for other preprocedural examination Category: Medical (2) Chronic kidney disease (CKD) stage G4/A3, severely decreased glomerular filtration rate (GFR) between 15-29 mL/min/1.73 square meter and albuminuria creatinine ratio greater than 300 mg/g: Code(s): N18.4 - Chronic kidney disease, stage 4 (severe) Category: Medical (3) DVT of axillary vein, acute right: Comment: 09/2022 in toe Code(s): I82.A11 - Acute embolism and thrombosis of right axillary vein Category: Medical (4) Serrated adenoma of colon: Code(s): D12.6 - Benign neoplasm of colon, unspecified Category: Medical (5) Constipation: Code(s): K59.00 - Constipation, unspecified Category: Medical (6) GERD (gastroesophageal reflux disease): Code(s): K21.9 - Gastro-esophageal reflux disease without esophagitis Category: Medical Plan [place] #[id number] She says she has had 4 surgeries between IVC filter and a (? fem/pop) bypass she is still recovering from this. She has lower abd pain r/t this and numbness in her groins and upper legs. She continues on her pantoprazole 40 mg once a day and on her Colace and senna with good control of her constipation. She had a period of severe CIC after the surgery and they thought they may have to remove this with a machine, but then she started moving her bowels again. She has a new medication which is Eliquis. This is prescribed by a Dr. Dill at [facility] [place] [address] - we would need clearance before considering repeat colonoscopy. We will consider discussing this further in 6 mos as she recovers. She also has suffered the recent of her daughter. ROV 6 mos. COLONOSCOPY BIOPSY Coding Level of Care Code Est Pt Level 3 (93606) Diagnoses Pre-op examination Z01.818 Chronic kidney disease (CKD) stage G4/A3, severely decreased glomerular filtration rate (GFR) between 15-29 mL/min/1.73 square meter and albuminuria creatinine ratio greater than 300 mg/g N18.4 DVT of axillary vein, acute right I82.A11 Serrated adenoma of colon D12.6 Constipation K59.00 GERD (gastroesophageal reflux disease) K21.9
== END 2024-05-07 13:44 | disposition home or self-care (01) ==
PROVIDERS: PCP Internal Medicine; Visit Provider Nurse Practitioner
DX: K59.00 Constipation, unspecified (principal); K21.9 Gastro-esophageal reflux disease without esophagitis; Z86.010 Personal history of colon polyps; N18.4 Chronic kidney disease, stage 4 (severe); I82.A11 Acute embolism and thrombosis of right axillary vein
CPT/HCPCS: 99213

== ENCOUNTER → 2024-05-07 13:02 | Outpatient (BNVA) | payer OTHER, SELFPAY | PROVIDERS: PCP Internal Medicine; Visit Provider Nurse Practitioner | DX: Z01.818 Encounter for other preprocedural examination (principal); K21.9 Gastro-esophageal reflux disease without esophagitis; K59.00 Constipation, unspecified; N18.4 Chronic kidney disease, stage 4 (severe); I82.A11 Acute embolism and thrombosis of right axillary vein; D12.6 Benign neoplasm of colon, unspecified; Z79.01 Long term (current) use of anticoagulants; Z79.899 Other long term (current) drug therapy | CPT/HCPCS: 99212 ==

== ENCOUNTER 2024-06-23 13:47 | Outpatient (REF) | payer OTHER, SELFPAY ==
[2024-06-23 14:06] LABS: MANUAL DIFF FLAG NO
[2024-06-23 15:13] LABS: Basophils Absolute Auto 0.1 X10*3/uL (0.0-0.2); Basophils Percent Auto 1.4 % (0-2); Eosinophils Absolute Auto 0.2 X10*3/uL (0.0-0.4); Eosinophils Percent Auto 3.5 % (0-4); Hematocrit 37.5 % (37.0-47.0); Hemoglobin 11.7 g/dl (12.0-16.0); Imm Gran Abs Auto 0.02 X10*3/uL (0.00-0.03); Imm Gran Pct Auto 0.3 % (0.0-0.4); Lymphocytes Absolute Auto 2.1 X10*3/uL (1.2-4.9); Lymphocytes Percent Auto 32.9 % (20-40); Mean Corpuscular HGB Conc 31.2 g/dl (31.0-35.0); Mean Corpuscular Hemoglobin 27.4 pg (27.0-33.0); Mean Corpuscular Volume 87.8 fL (80.0-98.0); Mean Platelet Volume 11.2 fL (9.4-12.3); Monocytes Absolute Auto 0.5 X10*3/uL (0.1-1.2); Monocytes Percent Auto 8.3 % (2-11); Neutrophils Absolute Auto 3.5 x10*3/uL (2.0-8.3); Neutrophils Percent Auto 53.6 % (45-73); Platelet Count 219 X10*3/uL (160-400); Red Blood Count 4.27 X10*6/uL (4.20-5.50); Red Cell Distribution Width 16.1 % (11.0-16.0); White Blood Count 6.5 X10*3/uL (4.8-10.8)
[2024-06-23 15:39] LABS: Parathyroid Hormone Intact 89.1 pg/mL (8.7-77.1)
[2024-06-23 15:45] LABS: Anion Gap 14 (12-20); Blood Urea Nitrogen 12 mg/dL (9-16); Calcium 9.3 mg/dL (8.4-10.2); Carbon Dioxide 24 mmol/L (22-29); Chloride 106 mmol/L (96-108); Estimated Glomerular Filt Rate 32; Magnesium 1.8 mg/dL (1.6-2.6); Potassium 4.7 mmol/L (3.3-5.1); Sodium 139 mmol/L (135-145)
[2024-06-23 15:48] LABS: Vitamin D 25-OH Total 16.6 ng/mL (>30)
[2024-06-23 15:49] LABS: Appearance Urine Clear; Color Urine Yellow; Glucose Urine UA >=1000 mg/dL (Negative); Leukocyte Esterase Urine Trace (Negative); Nitrite Urine Negative (Negative); Specific Gravity - Urine 1.015 (1.005-1.025); UMIC TRIGGER UA YES; Urine Blood Negative (Negative); Urine Ketones Negative (Negative); Urine Protein Negative (Neg-Trace)
[2024-06-23 16:11] LABS: Creatinine Urine 101.82 mg/dL; Microalbumin Urine < 5.0 mg/L; Total Protein Urine Random < 7 mg/dL (<12)
[2024-06-23 16:30] LABS: Bacteria Urine None Seen (None Seen); Hyaline Casts Urine 0-2 /LPF (0-2); RBC Urine 0-2 /HPF (0-2); WBC Urine 0-5 /HPF (0-5)
== END 2024-06-23 13:48 | disposition home or self-care (01) ==
LOC: HO.LAB 13:47
PROVIDERS: PCP Internal Medicine; Visit Provider Internal Medicine Nephrology
DX: E11.21 Type 2 diabetes mellitus with diabetic nephropathy (principal); N18.31 Chronic kidney disease, stage 3a
CPT/HCPCS: 36415; 80051; 81001; 82040; 82043; 82306; 82310; 82565; 82570; 83735; 83970; 84100; 84156; 84520; 85025

== ENCOUNTER 2024-09-04 13:51 | Outpatient (REF) | payer OTHER, SELFPAY ==
[2024-09-04 17:00] LABS: Alanine Aminotransferase 22 U/L (0-31); Albumin Level 4.2 g/dL (3.5-5.0); Alkaline Phosphatase 118 U/L (39-117); Anion Gap 12 (12-20); Aspartate Amino Transferase 25 U/L (5-31); Bilirubin Total 0.5 mg/dL (0.0-1.0); Blood Urea Nitrogen 13 mg/dL (9-16); Calcium 9.7 mg/dL (8.4-10.2); Carbon Dioxide 26 mmol/L (22-29); Chloride 106 mmol/L (96-108); Cholesterol 176 mg/dL (<200); Estimated Glomerular Filt Rate 38; Glucose Random 169 mg/dL (60-115); HDL Cholesterol 47 mg/dL (>40); LDL Cholesterol Calculated 98 mg/dL (<100); Potassium 4.6 mmol/L (3.3-5.1); Sodium 139 mmol/L (135-145); Total Protein 7.7 g/dL (6.5-8.0); Triglycerides 159 mg/dL (<150)
[2024-09-04 17:43] LABS: Creatinine Urine 32.04 mg/dL
== END 2024-09-04 13:52 | disposition home or self-care (01) ==
LOC: HO.HHCL 13:51
PROVIDERS: Visit Provider Internal Medicine
DX: Z13.89 Encounter for screening for other disorder (principal)
CPT/HCPCS: 36415; 80053; 80061; 82043; 82570

== ENCOUNTER 2024-09-04 14:05 | Outpatient (REF) | payer OTHER, SELFPAY | END 2024-09-04 14:06 | disposition home or self-care (01) | LOC: HO.HHCX 14:05 | PROVIDERS: PCP Internal Medicine; Visit Provider Internal Medicine | DX: M25.561 Pain in right knee (principal); M25.551 Pain in right hip | CPT/HCPCS: 73502; 73564 ==

== ENCOUNTER 2024-10-28 13:40 | Outpatient (AMB) | payer OTHER, SELFPAY ==
--- NOTE | 2024-10-28 13:42 | MHC.OFFVIS ---
Vital Signs 10/28/24 13:49 Height 5 ft Weight 112 lb BMI 21.9 Intake Visit Reasons: Right knee pain, Right hip pain Intake Note: Dory is a 74 year old female who presents with complaints of progressively worsening right hip pain and right knee pain. The patient states that her right hip pain is more bothersome than is her knee pain at this point. She states that she underwent right knee surgery several years ago. She got fairly good relief from that procedure. She denies any locking or giving way. The patient states that she has been told that she has ?arthritis? in her right hip and might need right total hip replacement surgery. She has tried Tylenol and anti-inflammatory medicines which gave her only mild relief. The patient states that her right hip pain has gotten worse over the last few years. At this point her right hip pain is interfering with her activities of daily living and her ability to sleep well through the night. Personnel Monitor Required: Yes Personnel Monitor Language: [place]ian Allergies ceftriaxone Allergy (Severe, Verified 10/28/24 13:43) Anaphylaxis doxycycline Allergy (Mild, Verified 10/28/24 13:43) Itching Penicillins Allergy (Mild, Verified 10/28/24 13:43) RASH Sulfa (Sulfonamide Antibiotics) [Sulfa (Sulfonamides)] Allergy (Mild, Verified 10/28/24 13:43) RASH hydromorphone [From DILAUDID] Allergy (Unknown, Verified 10/28/24 13:43) NAUSEA & VOMITING Medication List - Last Reconciled 10/28/24 by Leonides Brooks MD acetaminophen 500 mg PO QID PRN albuterol sulfate 90 mcg/actuation (Proventil HFA) 2 puffs inhalation Q4-6H PRN aspirin 81 mg PO DAILY cholecalciferol (vitamin D3) (Vitamin D3) 50 mcg PO DAILY diphenhydramine HCl (Banophen) 25 mg PO BEDTIME docusate sodium 100 mg PO DAILY fluconazole 150 mg PO Q3D fluticasone propionate 50 mcg/actuation sprays intranasal glipizide ER mg PO lorazepam 0.5 mg PO TID PRN losartan 50 mg PO DAILY methenamine hippurate 1 g PO BID metoprolol succinate ER 50 mg PO DAILY ondansetron 4 mg PO Q6H PRN oxybutynin chloride ER 15 mg PO DAILY pantoprazole 40 mg PO BID peg 3350-electrolytes 236-22.74-6.74 -5.86 gram (Golytely) 240 mL PO Q10M 1 day sennosides (senna) 17.2 mg (2 x 8.6 mg) PO BEDTIME simvastatin 10 mg PO DAILY spironolactone 25 mg PO BID PFSH Medical History Serrated adenoma of colon Gallbladder & bile duct stone with obstruction High cholesterol Hyperkalemia Hypertension Kidney failure Diabetes Surgical History Hx of colonoscopy History of bladder surgery Family History Father Diabetes Heart attack Mother Diabetes Alzheimer disease Family/Other Diabetes Social History Household Members: None Alcohol intake: never Cigarettes Per Day: 4 Physical Exam Vital Signs: BMI result Body Mass Index 21.9 Const Other: Well-nourished well-developed very friendly female awake alert and oriented x3 in no acute distress Extrem Other: Right hip examination shows decreased range of motion when compared to her left hip, pain with range of motion, no tenderness over her bursa Right knee examination shows a minimal effusion, mild crepitus with range of motion, no instability Results Reviewed Results Reviewed: X-rays of the patient's right hip show moderate diffuse joint space narrowing, subchondral sclerosis, no acute bony abnormalities X-rays of the patient's right knee show mild diffuse joint space narrowing, no acute bony abnormalities Assessment & Plan Assessment & Plan (1) Right hip pain: Code(s): M25.551 - Pain in right hip Category: Medical (2) Right knee pain: Code(s): M25.561 - Pain in right knee Plan Ms. 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 Thus, I will send the patient for an MRI of her right hip for further evaluation. I will see her back once the MRI is completed to discuss the findings and treatment options. Feel free to call me at any time should questions regarding her orthopedic management arise. Thank you very much for asking me to see this very friendly patient. I spent 20 minutes in reviewing the patient's records and imaging studies, seeing the patient and documenting in the medical record. Orders: Orders MR hip RT wo con Today M25.551 - Pain in right hip Coding Level of Care Code New Pt Level 3 (85382) Complex EM visit Add On G2211 Diagnoses Right hip pain M25.551 Right knee pain M25.561
[2024-10-28 13:49] VITALS: BMI 21.9
--- OUTSIDE RECORDS SUMMARY | 2024-10-28 13:52 | XMS_ITS | Encounter Summary ---
Author Organization [facility] Address 100 [facility] 200 [place] [address] Phone Care Team Providers Care Occupational Therapy Co Director Name Role Phone Hyun Resendiz MD Primary Care Provide r Reason for Visit * Reason Comments Med Refill Encounter Details Date Type Department Care Team (Late st Contact Info) Description 04/06/2021 Refill [facility] 100 [facility] 200 [place] [address] Bentley Metz MD 10[address] [facility] 204 [place] [address] Social History Tobacco Use Types Packs/Day Years Used Date Smoking Tobacco: Every Day Cigarettes Alcohol Use Standard Drinks/Week Comments No 0 (1 standard drink = 0.6 oz pur e alcohol) Comments Unknown Sex and Gender Information Value Date Recorded Sex Assigned at Not on file Legal Sex Female 4:59 PM EST Gender Identity Not on file Sexual Orientation Not on file documented as of this encounter Miscellaneous Notes * Telephone Encounter - Pina Moss MA - 04/13/2021 1:13 PM EDT Pt has appt scheduled for 05/16 in [place] * Telephone Encounter - Bentley Metz MD - 04/10/2021 12:32 PM EDT Needs f/u in 5-6 weeks with me 1. tell them I sent rx but no refils 2. They must see me or have a telehealth visit with me before I can renew it again 3. when u call them be sure to make the f/u appt at the same time u inform them th rx was sent by me documented in this encounter Plan of Treatment Upcoming Encounters Date Type Department Care Team (Late st Contact Info) Description 12/22/2024 1:45 PM EDT Office Visit [facility] [address] [place] [phone] Bentley Mezt MD 3550 [facility] 204 [place] [address] documented as of this encounter Visit Diagnoses Not on filedocumented in this encounter Care Teams Occupational Therapy Co Director Relationship Specialty Start Date End Date Hyun Resendiz MD [address] [place] [address] [place] [phone] PCP - General Internal Medicine 05/16/21 documented as of this encounter
--- OUTSIDE RECORDS SUMMARY | 2024-10-28 13:52 | XMS_ITS | Encounter Summary ---
Author Organization [facility] Address 100 [facility] 200 [place] [address] Phone Care Team Providers Care Dancing Instructor Name Role Phone Hyun Resendiz MD Primary Care Provide r Reason for Visit * Reason Comments Med Refill Encounter Details Date Type Department Care Team (Late st Contact Info) Description 10/11/2024 Refill [facility] [address] [facility] 200 [place] [address] Bentley Metz MD [address] [facility] 204 [place] [address] Renal disorder due to type 2 diabetes mellitus <Other diabetic kidney complication> (HCC); Stage 3b chronic kidney disease (HCC) Social History Tobacco Use Types Packs/Day Years Used Date Smoking Tobacco: Every Day Cigarettes Smokeless Tobacco: Never Alcohol Use Standard Drinks/Week Comments No 0 (1 standard drink = 0.6 oz pur e alcohol) Comments Unknown Sex and Gender Information Value Date Recorded Sex Assigned at Not on file Legal Sex Female 4:59 PM EST Gender Identity Not on file Sexual Orientation Not on file documented as of this encounter Plan of Treatment Upcoming Encounters Date Type Department Care Team (Late st Contact Info) Description 12/22/2024 1:45 PM EDT Office Visit [facility] [address] [place] [phone] Bentley Metz MD [address] [facility] 204 [place] [address] documented as of this encounter Visit Diagnoses Diagnosis Renal disorder due to type 2 diabetes mellitus <Other diabetic kidney complication> (HCC) Stage 3b chronic kidney disease (HCC) documented in this encounter Care Teams Dancing Instructor Relationship Specialty Start Date End Date Hyun Resendiz MD [address] [place] [phone] PCP - General Internal Medicine 05/16/21 documented as of this encounter
--- OUTSIDE RECORDS SUMMARY | 2024-10-28 13:52 | XMS_ITS | Encounter Summary ---
Author Organization [employer] Address [address] [facility] [address] [place] [address] Care Team Providers Care Insurance Claim Representative Name Role Phone Hyun Resendiz MD Primary Care Provide r Encounter Details Date Type Department Care Team (Late st Contact Info) Description 07/03/2023 Abstract [facility] MEDICINE 230 [place] [address] Carina Ramos Social History Tobacco Use Types Packs/Day Years Used Date Smoking Tobacco: Every Day Cigarettes Passive Smoke Exposure: Never Alcohol Use Standard Drinks/Week Comments Never 0 (1 standard drink = 0.6 oz pur e alcohol) Depression Answer Date Recorded Patient Health Questionnaire-9 Score 16 03/05/2023 Housing Stability Answer Date Recorded What is your housing situation today? I have ibrahima pan 07/03/[address] you li ve. Do you have problems with any of the following? None of the above 07/03/2023 Food Insecurity Answer Date Recorded Within the past 12 months, y ou worried that your food would run out before you got money to buy more: Never True 07/03/2023 Within the past 12 months,th e food you bought just didn't last and you didn't have enough money to get more: Never True 06/2023 Transportation Answer Date Recorded In the past 12 months, has l ack of transportation kept you from medical appts, meetings, work or from getting things needed for daily living? No 07/03/2023 Utilities Answer Date Recorded In the past 12 months, has t he electric, gas, oil or water company threatened to shut off services in your home? No 07/03/2023 Depression Answer Date Recorded Patient Health Questionnaire-2 Score 6 03/05/2023 Comments Unknown Sex and Gender Information Value Date Recorded Sex Assigned at Female 07/24/2022 10:16 AM EDT Legal Sex Female 10:16 AM EDT Gender Identity Female 07/24/2022 10:16 AM EDT Sexual Orientation Choose not to disclose 2021 10:16 AM EDT documented as of this encounter Plan of Treatment Upcoming Encounters Date Type Department Care Team (Late st Contact Info) Description 11/19/2024 2:00 PM EST Office Visit [facility] MED[facility]INE 230 [place] [address] Hyun Resendiz MD 230 [place], [place] [phone] documented as of this encounter Procedures Procedure Name Priority Date/Time Associated Diagnosis Comments COLONOSCOPY Routine 08/10/2016 documented in this encounter Results * Colonoscopy (08/10/2016) Colonoscopy Normal Normal Comment:Recommended 5 year f ollow up due to history of polyps us Historical Provider HEALTH MAINTENANCE Final Result documented in this encounter Visit Diagnoses Not on filedocumented in this encounter Additional Health Concerns Assessment Noted Time PHQ-9 Depression Total Score: 16 023 2:51 PM EDT documented as of this encounter Care Teams Insurance Claim Representative Relationship Specialty Start Date End Date Hyun Resendiz MD [address] [place] [phone] PCP - General Family Medicine 05/21/19 documented as of this encounter
--- OUTSIDE RECORDS SUMMARY | 2024-10-28 13:52 | XMS_ITS | Encounter Summary ---
Author Organization [facility] Address 75 [facility] 7t [place] [address] Care Team Providers Care Technical Operations Vice President Name Role Phone Hyun Resendiz MD Primary Care Provide r Reason for Visit * Reason Comments Med Refill Encounter Details Date Type Department Care Team (Late Contact Info) Description 05/05/2023 Refill [facility] MEDICINE [address] [place] [phone] Hyun Resendiz MD 230 [place] [address] Diabetic nephropathy associated with type 2 diabetes mellitus ([facility]); Type 2 diabetes mellitus with stage 3b chronic kidney disease, without long-term current use of insulin ([facility]) Social History Tobacco Use Types Packs/Day Years Used Date Smoking Tobacco: Every Day Cigarettes Passive Smoke Exposure: Never Alcohol Use Standard Drinks/Week Comments Never 0 (1 standard drink = 0.6 oz pur e alcohol) Depression Answer Date Recorded Patient Health Questionnaire-9 Score 16 03/05/2023 Depression Answer Date Recorded Patient Health Questionnaire-2 [...] Description 11/19/2024 2:00 PM EST Office Visit [facility] MEDICINE 230 [place] [address] Hyun Resendiz MD 230 [place] [address] documented as of this encounter Visit Diagnoses Diagnosis Diabetic nephropathy associated with type 2 diabetes mellitus ([facility]/HCC) Type 2 diabetes mellitus with stage 3b chronic kidney disease, without long-term current use of insulin ([facility]) documented in this encounter Additional Health Concerns Assessment Noted Time PHQ-9 Depression Total Score: 16 023 2:51 PM EDT documented as of this encounter Care Teams Technical Operations Vice President Relationship Specialty Start Date End Date Hyun Resendiz MD 230 [place], [place] [phone] PCP - General Family Medicine 05/21/19 documented as of this encounter
--- OUTSIDE RECORDS SUMMARY | 2024-10-28 13:52 | XMS_ITS | Clinical Summary ---
Author Organization [facility] Address [address] [place] [address], [place] [address] Care Team Providers Care Master Police Detective Name Role Phone Hyun Resendiz MD Primary Care Provide r Allergies Active Allergy Reactions Criticality Noted Date Comments Raul Inhibitors Other (see comments) 01/18/2021 Ceftriaxone 08/28/2023 Anaphylaxis Penicillin V Other (see comments) 01/18/2021 Pravastatin Other (see comments) 01/18/2021 Sulfa Antibiotics 10/04/2022 Medications aspirin (ST WILLIE) 81 MG EC tablet Take 1 tablet by mouth 1 (one) time each day Active glipiZIDE (GLUCOTROL) 5 MG tablet Take 2 tablets by mouth in the morning and 2 tablets in the evening. Active simvastatin (ZOCOR) 10 MG tablet Take 1 tablet by mouth 1 (one) time each day in the evening 07/30/20 15 Active Banophen 25 MG capsule Take 25 mg by mouth at night if needed 02/16/20 21 Active LORazepam (ATIVAN) 0.5 MG tablet TOME RICARDO TABLETA AMANDA VECES AL D A CUANDO SEA NECESARIO 02/01/20 21 Active methenamine (HIPREX) 1 g tablet 01/14/20 21 Active oxybutynin XL (DITROPAN-XL) 15 MG 24 hr tablet TOME RICARDO TABLETA TODOS LOS BANDA 02/01/20 21 Active pantoprazole (PROTONIX) 40 MG EC tablet 02/23/20 21 Active traMADol (ULTRAM) 50 MG tablet Take 50 mg by mouth every 6 (six) hours if needed for moderate pain Active ergocalciferol 1.25 MG (48216 UT) capsule TAKE 1 CAPSULE (50,000 UNITS TOTAL) BY MOUTH EVERY 14 (FOURTEEN) DAYS 2 capsule 1 10/17/19 22 Active apixaban (Eliquis) 5 MG tablet Take 5 mg by mouth in the morning and 5 mg in the evening. Active spironolactone (ALDACTONE) 25 MG tablet Take 1 tablet (25 mg total) by mouth 1 (one) time each day 90 tablet 4 06/23/20 24 027 Active metoprolol tartrate (LOPRESSOR) 50 MG tablet TOME RICARDO TABLETA DOS VECES AL SANKET 180 tablet 5 07/16/20 24 Active losartan (COZAAR) 50 MG tabletIndicati ons:Renal disorder due to type 2 diabetes mellitus <Other diabetic kidney complication> (HCC),Stage 3b chronic kidney disease (HCC) TAKE 1 TABLET BY MOUTH 1 TIME EACH DAY. 90 tablet 3 10/12/19 25 Active losartan (COZAAR) 50 MG tabletIndicati ons:Renal disorder due to type 2 diabetes mellitus <Other diabetic kidney complication> (HCC),Stage 3b chronic kidney disease (HCC) Take 1 tablet (50 mg total) by mouth 1 (one) time each day 90 tablet 3 10/25/19 24 025 Discontinued Active Problems Problem Noted Date Diagnosed Date Type 2 diabetes mellitus 02/01/2024 Overview (03/18/2024): Last Assessment & Plan: C/w same medication regimen C/w diabetic diet Indigestion 01/16/2023 Stage 3b chronic kidney disease 05/16/2021 Renal osteodystrophy 05/16/2021 Stage 3a chronic kidney disease 01/18/2021 Renal disorder due to type 2 diabetes mellitus 0 01/18/2021 Hypertensive renal disease 01/18/2021 Renal stone 01/18/2021 Cervical spondylosis 12/12/2018 Neck pain 07/31/2018 Diffuse pain 06/28/2018 Disorder of forearm 10/16/2017 Primary coxarthrosis, 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 Hip pain 08/29/2017 Adhesive capsulitis of shoulder 03/18/2013 History of cholecystectomy 03/18/2013 Depressive disorder 03/12/2012 Essential hypertension 02/16/2012 Herpes simplex 02/16/2012 Urinary incontinence 02/16/2012 Pure hypercholesterolemia 02/16/2012 Tobacco dependence syndrome 09/24/1960 Encounters Date Type Department Care Team Description 10/11/2024 Refill [facility] [address] [facility] 200 [place] [phone] Bentley Metz MD Renal disorder due to type 2 diabetes mellitus <Other diabetic kidney complication> (HCC); Stage 3b chronic kidney disease (HCC) from Last 3 Months Family History Medical History Relation Comments Diabetes Father Heart disease Father Hypertension Father Kidney disease Father Dementia Mother Hypertension Sibling 1 Kidney disease Sibling 2 3 sisters Diabetes Sibling 3 3 sisters & brot her Heart disease Sibling 4 2 sisters Cancer Sibling 5 3 sisters - dieudonne oneil, 1 sister breast Relation Status Comments Father Mother Sibling 1 Sibling 2 Sibling 3 Sibling 4 Sibling 5 Social History Tobacco Use Types Packs/Day Years [...] on file Sexual Orientation Not on file Last Filed Vital Signs Vital Sign Reading Time Taken Comments Blood Pressure 110/66 06/23/2024 1:22 PM EDT Pulse 66 06/23/2024 1:22 PM EDT Temperature - - Respiratory Rate - - Oxygen Saturation 97% 06/23/2024 1:22 PM EDT Inhaled Oxygen Concentration - - Weight 51 kg (112 lb 6.4 oz) 06/23/2024 1:22 PM EDT Height 152.4 cm (5') 09/22/2019 12:00 PM EST Body Mass Index 21.95 09/22/2019 12:00 PM EST Plan of Treatment Upcoming Encounters Date Type Department Care Team (Late st Contact Info) Description 12/22/2024 1:45 PM EDT Office Visit [facility] [address] [place] [phone] Bentley Metz MD [address] [facility] 204 [place] [phone] Health Maintenance Due Date Last Done Comments Breast Cancer Screening 1950 Pneumococcal Vaccine: 65+ Years (1 of 2 - PCV) 1955 Colorectal Cancer Screening: Annual FOBT 1998 Colorectal Cancer Screening: Colonoscopy 1998 Colorectal Cancer Screening: Sigmoidoscopy 1998 Diabetes: Ophthalmology Exam 10/24/2020 Diabetes: Pedal Pulse Checked 10/24/2020 Diabetes: Sensory Foot Exam 10/24/2020 Diabetes: Visual Foot Exam 10/24/2020 Diabetes: Hemoglobin A1C 01/31/2024 024, 08/03/2023, 01/17/2023, Additional history exists Influenza Vaccine (#1) 2024 Hepatitis B Vaccine Aged Out No longe r eligible based on patient's age to complete this topic Procedures Procedure Name Priority Date/Time Associated Diagnosis Comments HEMOGLOBIN A1C Routine 05/10/2020 10:53 AM EDT from Last 3 Months or Most Recently Relevant to Health Maintenance Results * Hemoglobin A1c (05/10/2020 10:53 AM EDT) Estimated Average Glucose 146 MG/DL SERGIO Comment: eAG = Estimated average glucose which is %A1C expressed as average glucose, using the formula of the X2T-Ikaiufn Average Glucose study (ADAG), Diabetes Care, Vol.31,#8, Apr. 2007 Hemoglobin A1C 6.7 % SERGIO Comment: ?Hemoglobin A1C Reference Range ? Adults: ??4.8 - 6.0 % ? Non diabetic: ??< 6.0 % ? Goal: ??< 7.0 % Additional Action Suggested: ??> 8.0 % Note: ??Hemoglobin A1c results are invalid for patients ? with abnormal amounts of HbF. ??Blood transfusions ? may impact the HbA1c concentration in the patient ? sample. 05/10/2020 10:5 3 AM EDT us Hyun Pizano MD LAB BLOOD ORDERABLES Final Result SERGIO from Last 3 Months or Most Recently Relevant to Health Maintenance Insurance [facility] ([id number]) [facility] ([id number]) Care Teams Master Police Detective Relationship Specialty Start Date End Date Hyun Resendiz MD [address] [place] [address] [place] [phone] PCP - General Internal Medicine 05/16/21
--- OUTSIDE RECORDS SUMMARY | 2024-10-28 13:52 | XMS_ITS | Encounter Summary ---
Author Organization [facility] Address [address] [facility] [address] 7[address] [place] [address] Care Team Providers Care Scientific Informatics Analyst Name Role Phone Hyun Resendiz MD Primary Care Provide r Encounter Details Date Type Department Care Team (Late st Contact Info) Description 12/26/2022 Orders Only [facility] & PEDS [address] [place], [place] [phone] Shaunna Wick LPN Social History Tobacco Use Types Packs/Day Years Used Date Smoking Tobacco: Never Assessed Comments Unknown Sex and Gender Information Value [...] Description 11/19/2024 2:00 PM EST Office Visit [facility] MED[facility] [address] [place] [address] Hyun Resendiz MD 230 [place] [address] documented as of this encounter Visit Diagnoses Not on filedocumented in this encounter Care Teams Scientific Informatics Analyst Relationship Specialty Start Date End Date Hyun Resendiz MD [address] [place], [place] [phone] PCP - General Family Medicine 05/21/19 documented as of this encounter
--- OUTSIDE RECORDS SUMMARY | 2024-10-28 13:52 | XMS_ITS | Encounter Summary ---
Author Organization [employer] [facility] Address [address] [facility] 7t [place] [address] Care Team Providers Care Lead Sql Developer Name Role Phone Hyun Resendiz MD Primary Care Provide r Reason for Visit * Reason Comments Med Refill Encounter Details Date Type Department Care Team ([facility] Contact Info) Description 02/14/2023 Refill [facility] MEDICINE [address] [place] [address] [phone] Hyun Resendiz MD [address] [place], [place] [phone] Social History Tobacco Use Types Packs/Day Years Used Date Smoking Tobacco: Some Days Cigarettes Alcohol Use Standard Drinks/Week Comments Never 0 (1 standard drink = 0.6 oz pur e alcohol) Comments Unknown Sex and Gender Information Value Date Recorded Sex Assigned at Female 07/24/2022 10:16 AM EDT Legal Sex Female 10:16 AM EDT Gender Identity Female 07/24/2022 10:16 AM EDT Sexual Orientation Choose not to disclose 2021 10:16 AM EDT COVID-19 Exposure Response Date Recorded In the last 10 days, have yo u been in contact with someone who was confirmed or suspected to have Coronavirus/COVID-19? No / Unsure 01/17/2023 10:48 AM EDT documented as of this encounter Plan of Treatment Upcoming Encounters Date Type Department Care Team ([facility] Contact Info) Description 11/19/2024 2:00 PM EST Office Visit [facility] MEDICINE [address] [place], [place] [phone] Hyun Resendiz MD [address] [place], [place] [phone] documented as of this encounter Visit Diagnoses Not on filedocumented in this encounter Care Teams Lead Sql Developer Relationship Specialty Start Date End Date Hyun Resendiz MD [address] [place] [phone] PCP - General Family Medicine 05/21/19 documented as of this encounter
--- OUTSIDE RECORDS SUMMARY | 2024-10-28 13:52 | XMS_ITS | Encounter Summary ---
Author Organization [employer] [facility] Address 75 [facility] 7t [place] [address] Care Team Providers Care Light Adjuster Name Role Phone Hyun Resendiz MD Primary Care Provide r Reason for Visit * Reason Comments Med Refill Encounter Details Date Type Department Care Team (Late Contact Info) Description 06/09/2023 Refill [facility] MEDICINE [address] [place] [address] [phone] Hyun Resendiz MD [address] [place] [phone] Social History Tobacco Use Types Packs/Day Years [...] Encounters Date Type Department Care Team (Late Contact Info) Description 11/19/2024 2:00 PM EST Office Visit [facility] MEDICINE [address] [place] [phone] Hyun Resendiz MD 230 [place], [place] [phone] documented as of this encounter Visit Diagnoses Not on filedocumented in this encounter Additional Health Concerns Assessment Noted Time PHQ-9 Depression Total Score: 16 023 2:51 PM EDT documented as of this encounter Care Teams Light Adjuster Relationship Specialty Start Date End Date Hyun Resendiz MD 230 [place] [address] PCP - General Family Medicine 05/21/19 documented as of this encounter
--- OUTSIDE RECORDS SUMMARY | 2024-10-28 13:52 | XMS_ITS | Encounter Summary ---
Author Organization [employer] Address [address] [facility] [address] [place] [address] Care Team Providers Care Value Engineer Name Role Phone Hyun Resendiz MD Primary Care Provide r Reason for Visit * Reason Comments Med Refill Encounter Details Date Type Department Care Team ([facility] Contact Info) Description 01/19/2023 Refill [facility] MED & PEDS [address] [place], [place] [phone] Tammie Boyd MD [address] [place], [place] [phone] Recurrent UTI Social History Tobacco Use Types Packs/Day Years [...] Upcoming Encounters Date Type Department Care Team ([facility] Contact Info) Description 11/19/2024 2:00 PM EST Office Visit [facility] MEDICINE 230 [place], [place] [phone] Hyun Resendiz MD [address] [place] [address] documented as of this encounter Visit Diagnoses Diagnosis Recurrent UTI Urinary tract infection, site not specified documented in this encounter Care Teams Value Engineer Relationship Specialty Start Date End Date Hyun Resendiz MD [address] [place], [place] [phone] PCP - General Family Medicine 05/21/19 documented as of this encounter
--- OUTSIDE RECORDS SUMMARY | 2024-10-28 13:52 | XMS_ITS | Encounter Summary ---
Author Organization [employer] [facility] Address 75 [facility] 7t [place] [address] Care Team Providers Care Electric Meter Tester Name Role Phone Hyun Resendiz MD Primary Care Provide r Reason for Visit * Reason Comments Med Refill Encounter Details Date Type Department Care Team (Late st Contact Info) Description 06/24/2023 Refill [facility] MEDICINE [address] [place] [address] [phone] Hyun Resendiz MD [address] [place] [address] [phone] Recurrent UTI Social History Tobacco Use Types [...] Description 11/19/2024 2:00 PM EST Office Visit [facility] MEDICINE [address] [place] [address] [phone] Hyun Resendiz MD [address] [place] [address] [phone] documented as of this encounter Visit Diagnoses Diagnosis Recurrent UTI Urinary tract infection, site not specified documented in this encounter Additional Health Concerns Assessment Noted Time PHQ-9 Depression Total Score: 16 023 2:51 PM EDT documented as of this encounter Care Teams Electric Meter Tester Relationship Specialty Start Date End Date Hyun Resendiz MD [address] [place] [phone] PCP - General Family Medicine 05/21/19 documented as of this encounter
--- OUTSIDE RECORDS SUMMARY | 2024-10-28 13:52 | XMS_ITS | Encounter Summary ---
Author Organization [employer] [facility] Address [address] [facility] [address] [place] [address] Care Team Providers Care Roll Edge Stitcher Hand Name Role Phone Hyun Resendiz MD Primary Care Provide r Reason for Visit * Reason Comments Med Refill Encounter Details Date Type Department Care Team ([facility] Contact Info) Description 11/10/2022 Refill [facility] PEDS [address] [place], [place] [phone] Tammie Boyd MD [address] [place] [phone] Recurrent UTI Social History Tobacco Use Types [...] Upcoming Encounters Date Type Department Care Team ([facility] Contact Info) Description 11/19/2024 2:00 PM EST Office Visit [facility] MEDICINE [address] [place], [place] [phone] Hyun Resendiz MD [address] [place] [address] documented as of this encounter Visit Diagnoses Diagnosis Recurrent UTI Urinary tract infection, site not specified documented in this encounter Care Teams Roll Edge Stitcher Hand Relationship Specialty Start Date End Date Hyun Resendiz MD [address] [place] [address] PCP - General Family Medicine 05/21/19 documented as of this encounter
--- OUTSIDE RECORDS SUMMARY | 2024-10-28 13:52 | XMS_ITS | Encounter Summary ---
Author Organization [facility] [facility] Address [address] [facility] [address] [place] [address] Care Team Providers Care Classroom Monitor Name Role Phone Hyun Resendiz MD Primary Care Provide r Encounter Details Date Type Department Care Team (Late Contact Info) Description 05/03/2023 Abstract [facility] [address] [place] [address] [phone] Hyun Resendiz MD [address] [place] [address] [phone] Social History Tobacco Use Types Packs/Day Years [...] Description 11/19/2024 2:00 PM EST Office Visit [facility] [address] [place] [address] [phone] Hyun Resendiz MD [address] [place], [place] [phone] documented as of this encounter Visit Diagnoses Not on filedocumented in this encounter Additional Health Concerns Assessment Noted Time PHQ-9 Depression Total Score: 16 023 2:51 PM EDT documented as of this encounter Care Teams Classroom Monitor Relationship Specialty Start Date End Date Hyun Resendiz MD [address] [place] [address] PCP - General Family Medicine 05/21/19 documented as of this encounter
--- OUTSIDE RECORDS SUMMARY | 2024-10-28 13:52 | XMS_ITS | Encounter Summary ---
Author Organization [facility] Address [address] [facility] [address] [place] [address] Phone Care Team Providers Care Foundry Technician Name Role Phone Hyun Resendiz MD Primary Care Provide r Reason for Visit * Reason Comments Med Refill Encounter Details Date Type Department Care Team (Late st Contact Info) Description 02/20/2021 Refill [facility] [address] [facility] [address] [place] [address] Bentley Metz MD [address] [facility] [address] [place] [address] Social History Tobacco Use Types [...] encounter Miscellaneous Notes * Telephone Encounter - Katerine Coelho MA - 02/28/2021 8:49 AM EDT Ok I scheduled appt and called patient * Telephone Encounter - Bentley Metz MD - 02/28/2021 1:35 AM EDT Needs appt with me or else I can not prescribe meds documented in this encounter Plan of Treatment Upcoming Encounters Date Type Department Care Team (Late st Contact Info) Description 12/22/2024 1:45 PM EDT Office Visit [facility] [address] [place] [address] [place] [phone] Bentley Metz MD [address] [facility] [address] [place] [phone] documented as of this encounter Visit Diagnoses Not on filedocumented in this encounter Care Teams Foundry Technician Relationship Specialty Start Date End Date Hyun Resendiz MD [address] [facility] [address] [place] [phone] PCP - General Internal Medicine 05/16/21 documented as of this encounter
--- OUTSIDE RECORDS SUMMARY | 2024-10-28 13:52 | XMS_ITS | Clinical Summary ---
Author Organization [employer] Address [address] [place] [address] Care Team Providers Care Plug Saw Operator Name Role Phone Hyun Resendiz MD Primary Care Provide r Allergies Active Allergy Reactions Criticality Noted Date Comments Raul Inhibitors Other,Unknown 09/21/2010 Ceftriaxone 08/31/2023 Doxycycline Itching Low 03/16/2023 Hydromorphone 03/16/2023 Other reaction(s): NAUSEA & VOMITING Penicillin V 09/21/2010 Other reaction(s): Other (see comments), unspecified Penicillins 10/04/2022 Pravastatin 01/18/2021 Other reaction(s): Other (see comments) Sulfa Antibiotics 09/21/2010 Other reaction(s): unspecified Medications clotrimazole (Lotrimin) 1 % cream APLIQUE AL AREA AFECTADA DOS VECES AL SANKET EN LA MANANA Y EN LA NOCHE 105 g 12/28/19 23 Active meclizine (Antivert) 12.5 MG tablet take 1 tablet by oral route 3 times every day as needed 20 tablet 2 12/28/19 23 Active Eliquis 5 MG tablet 09/27/19 23 Active Banophen 25 MG tablet TOME RICARDO TABLETA TODOS LOS D AL ACOSTARSE CUANDO SEA NECESARIO 12/02/19 23 Active LORazepam (Ativan) 0.5 MG tablet TOME RICARDO TABLETA AMANDA VECES AL D A CUANDO SEA NECESARIO 12/27/19 23 Active losartan (Cozaar) 50 MG tablet TAKE 1 TABLET BY MOUTH 1 TIME EACH DAY. 10/25/19 23 Active metoprolol tartrate (Lopressor) 50 MG tablet TOME RICARDO TABLETA DOS VECES AL D A 11/01/19 23 Active oxybutynin XL (Ditropan-XL) 15 MG 24 hr tablet TOME RICARDO TABLETA TODOS LOS D 07/20/20 22 Active Veltassa 8.4 g pack MIX AND DRINK 1 PACKET BY MOUTH DIRECTED 3 TIMES PER WEEK 12/12/19 23 Active senna (Senokot) 8.6 MG tablet TOME DOS TABLETAS POR V A ORAL TODOS LOS D AL ACOSTARSE FOR CONSTIPATION 08/24/20 22 Active Flovent HFA 110 MCG/ACT inhalerIndication s:Persistent asthma without complication, unspecified asthma severity INHALE DANDO DOS SOPLIDOS EN LA MANANA AND AL ACOSTARSE 36 g 07/24/20 23 Active Mapap 500 MG capsule Take 1 capsule by mouth if needed in the morning, at noon, in the evening, and at bedtime for fever. 08/10/20 23 Active Aspirin Low Dose 81 MG EC tablet Take 1 tablet by mouth in the morning. 08/19/20 23 Active oxyCODONE (Roxicodone) 5 MG immediate release tablet Take 1 tablet by mouth every 6 (six) hours if needed for pain. 08/19/20 23 Active pantoprazole (ProtoNix) 40 MG EC tablet Take 1 tablet by mouth 1 (one) time each day. 07/31/20 23 Active triamcinolone (Kenalog) 0.1 % creamIndications: Rash Apply topically if needed in the morning and at bedtime (pain and swelling). 30 g 11/02/19 24 Active EPINEPHrine (Epipen) 0.3 MG/0.3ML injection syringeIndication s:Allergy to cephalosporin Inject 0.3 mL (0.3 mg) as directed 1 (one) time if needed for anaphylaxis for up to 4 doses. Inject into upper leg. Call 911 after use. 1 each 1 11/02/19 24 Active Blood Glucose Monitoring Suppl (FreeStyle [place] Lite) w/Device kitIndications:Ty pe 2 diabetes mellitus with stage 3b chronic kidney disease, without long-term current use of insulin ([facility]) Use to test blood sugar 2 times daily 1 kit 11/02/19 24 Active spironolactone (Aldactone) 25 MG tablet Take 12.5 mg by mouth in the morning. 10/21/19 24 Active FreeStyle lancets USE TO TEST 3 TIMES DAILY 100 each 11 12/04/19 24 Active FREESTYLE LITE test strip USE TO TEST 3 TIMES DAILY 100 strip 11 12/04/19 24 Active Alcohol Swabs 70 % padsIndications:T ype 2 diabetes mellitus with chronic kidney disease, without long-term current use of insulin, unspecified CKD stage (CMS/HCC) Use 1 pad tid as directed 300 each 3 02/01/20 24 Active simvastatin (Zocor) 10 MG tablet TAKE 1 TABLET BY MOUTH AT BEDTIME 90 tablet 3 02/06/20 24 Active glipiZIDE XL (Glucotrol XL) 2.5 MG 24 hr tabletIndications :Diabetic nephropathy associated with type 2 diabetes mellitus (CMS/HCC) TAKE 1 TABLET BY MOUTH IN THE MORNING AND 1 TABLET AT NOON. DO NOT CRUSH, CHEW, OR SPLIT. 180 tablet 3 02/06/20 24 Active methenamine hippurate (Hiprex) 1 g tabletIndications :Recurrent UTI TOME RICARDO TABLETA DOS VECES AL SANKET 180 tablet 1 04/22/20 24 Active fluticasone furoate (Arnuity Ellipta) 100 MCG/ACT inhaler INHALE 1 PUFF BY MOUTH ONCE A DAY. RINSE MOUTH AFTER USE. 30 each 2 04/21/20 24 Active albuterol (Ventolin HFA) 108 (90 Base) MCG/ACT inhalerIndication s:COVID-19 virus infection TAKE 2 PUFFS BY MOUTH EVERY 4 TO 6 HOURS IF NEEDED 18 g 1 06/09/20 24 Active fluticasone (Flonase) 50 MCG/ACT nasal spray USE 1-2 SPRAYS BY INTRANASAL ROUTE EVERY DAY IN EACH NOSTRIL NEEDED 48 mL 3 08/27/20 24 Active cholecalciferol (Vitamin D-3) 50 MCG (2000 UT) tabletIndications :Diabetic nephropathy associated with type 2 diabetes mellitus (CMS/HCC) TAKE 1 TABLET BY MOUTH EVERY MORNING 90 tablet 1 09/04/20 24 Active empagliflozin (Jardiance) 10 MGIndications:Typ e 2 diabetes mellitus with stage 3b chronic kidney disease, without long-term current use of insulin (CMS/HCC) TAKE 1 TABLET BY MOUTH EVERY DAY 90 tablet 1 09/25/19 25 Active Active Problems Problem Noted Date Diagnosed Date Chronic pain of right knee 08/18/2024 Chronic right hip pain 08/18/2024 Type 2 diabetes mellitus wit h chronic kidney disease, without long-term current use of insulin 02/01/2024 Assessment & Plan (08/18/2024 5:04 PM EST): Diabetes is: not controlled - Lab Results Component Value Date HGBA1C 9.2 (A) 08/18/2024 HGBA1C 7.5 (A) 11/02/2023 HGBA1C 8.2 (A) 08/03/2023 - Lab Results Component Value Date MICROALBUR 76.0 02/13/2023 CREATININE 1.12 11/02/2023 -Changes: Patient declines for now new medications she will jamie to try with diet, she reports she was recently on medication that brought her glucose up - Diabetic eye exam:pending - Diabetic foot exam:pending - Continue lifestyle modifications - Continue current medications - Follow up: 3 months Assessment & Plan (02/01/2024 2:02 PM EDT): C/w same medication regimen C/w diabetic diet Multiple allergies 02/01/2024 Assessment & Plan (02/01/2024 2:03 PM EDT): Referral to software quality specialist will be mail to her Peripheral vascular disease 02/01/2024 Assessment & Plan (02/01/2024 2:07 PM EDT): Continue to f/u with vascular on elequis 5mg BID, patient reports she had a problem filling her prescription, reports vascular specialist was trying to fix it, if she can not get her medication she is instructed to reach back to me or specialist Rash 11/02/2023 H/O anaphylactic shock 11/02/2023 Hypertensive urgency 10/09/2023 Assessment & Plan (10/09/2023 4:18 PM EST): I decided to call ambulance a send patient to [facility] emergency room for further work up and evaluation Allergy to cephalosporin 08/31/2023 Assessment & Plan (08/31/2023 12:16 PM EST): Allergy noted in chart and discussed w/ pt about avoiding penicillins or any other cephalosporin Use benadryl prn mild allergy and prescription for EpiPen given for more severe reactions Type 2 diabetes mellitus wit h diabetic peripheral angiopathy without gangrene, without long-term current use of insulin 08/31/2023 Assessment & Plan (08/31/2023 3:22 PM EST): Pt stopped jardiance and is looking to start any medication Cont glipizide 2.5 BID and FU PCP 2-3 wks w/ glucometer Pt has sascha with vascular surgery on 09/11 for regular FU. I spoke with Dr Anton' office and they will see her on Sunday 09/02 at 10:45am, patient agreed with POC. Cont eliquis until 09/18 Acute vaginitis 08/31/2023 Assessment & Plan (08/31/2023 3:24 PM EST): Likely candidiasis sec to abs and DM Rx Fluconazole tab x 1 dose + lotrisone cream bid to perineal area only Viral upper respiratory tract infection 08/03/20 23 Onychomycosis 08/03/2023 URI (upper respiratory infection) 05/18/2023 COVID-19 virus infection 03/22/2023 Assessment & Plan (03/22/2023 3:00 PM EDT): Rest drink plenty of fluids Patient to be contacted with results Encounter for screening mamm ogram for malignant neoplasm of breast 03/05/2023 Health care maintenance 03/05/2023 Assessment & Plan (03/05/2023 3:15 PM EDT): Patient declines immunizations including pneumovax Vaginal itching 03/05/2023 Indigestion 01/16/2023 Renal osteodystrophy 05/16/2021 Diabetic nephropathy associa hiren with type 2 diabetes mellitus 01/18/2021 Assessment & Plan (11/02/2023 3:00 PM EST): - Lab Results Component Value Date HGBA1C 7.5 (A) 11/02/2023 HGBA1C 8.2 (A) 08/03/2023 HGBA1C 8.2 (A) 05/18/2023 - Lab Results Component Value Date MICROALBUR 76.0 02/13/2023 CREATININE 1.32 08/31/2023 - Diabetic eye exam:up to date - Diabetic foot exam:up to date - Continue lifestyle modifications - Continue current medications - Assessment & Plan (08/06/2023 2:40 PM EST): - Lab Results Component Value Date HGBA1C 8.2 (A) 08/03/2023 HGBA1C 8.2 (A) 05/18/2023 HGBA1C 8.0 (H) 01/17/2023 - Lab Results Component Value Date MICROALBUR 76.0 02/13/2023 CREATININE 1.73 (H) 02/13/2023 - Diabetic eye exam:pending - Diabetic foot exam:pending - Continue lifestyle modifications - Continue with glipizide 2.5mg BID I added today jardiance 10mg daily Assessment & Plan (05/18/2023 1:55 PM EDT): - Lab Results Component Value Date HGBA1C 8.2 (A) 05/18/2023 HGBA1C 8.0 (H) 01/17/2023 HGBA1C 8.1 (H) 10/04/2022 - Lab Results Component Value Date MICROALBUR 76.0 02/13/2023 CREATININE 1.73 (H) 02/13/2023 - Diabetic eye exam: up to date - Diabetic foot exam: patient has podiatry appointment on 05/29/23 - Continue lifestyle modifications -glipizide 2.5mg BID and today trulicity 0.75mg weekly Assessment & Plan (03/05/2023 3:46 PM EDT): - Lab Results Component Value Date HGBA1C 8.0 (H) 01/17/2023 HGBA1C 8.1 (H) 10/04/2022 HGBA1C 7.5 (H) 10/03/2021 - Lab Results Component Value Date MICROALBUR 76.0 02/13/2023 CREATININE 1.73 (H) 02/13/2023 - Diabetic eye exam: up to date - Diabetic foot exam: pending - it was prescribed by nephrology zoila but patient did not wanted to start it she does not like to try new medications, I today increase her glipizide to 5mg BID Cervical spondylosis 12/12/2018 Neck pain 07/31/2018 Diffuse pain 06/28/2018 Osteoporosis of forearm 10/16/2017 Primary osteoarthritis of both hips 10/16/2017 Stage 3 chronic kidney disease 10/16/2017 Assessment & Plan (08/31/2023 12:15 PM EST): Recheck BMP today Hip pain 08/29/2017 Adhesive capsulitis of shoulder 03/18/2013 History of cholecystectomy 03/18/2013 Depressive disorder 03/12/2012 Essential hypertension 02/16/2012 Assessment & Plan (08/18/2024 5:03 PM EST): -Today blood pressure is elevated she tells me her blood pressure is always good at home, she is compliant with her medications, I advised to log BP at home and bring log for nurse visit in 2 weeks - Aerobic exercise to reduce BP. Initial goal of 30 min walk 3-5x/week. Increase as tolerated. - low-sodium diet (goal: <2g/day) and heart healthy diet such as DASH to reduce BP and prevent ASCVD. - Home BP monitoring 1-2 x day with goal of <140/90. - Seek immediate medical attention for chest pain, palpitations, SOB, syncope, or sudden changes in mental status. - Do not change or discontinue current prescriptions without first consulting health care provider Assessment & Plan (02/01/2024 2:02 PM EDT): C/w same medications and maintain low Na diet Assessment & Plan (11/02/2023 3:00 PM EST): Patient will monitor her blood pressure at home I advise low Na diet C/w same medication regimen Plan is RTC for nurse visit in 2 weeks with log if BP is not at goal I will add amlodipine 2.5mg Assessment & Plan (08/03/2023 2:29 PM EST): - Aerobic exercise to reduce BP. Initial goal of 30 min walk 3-5x/week. Increase as tolerated. - low-sodium diet (goal: <2g/day) and heart healthy diet such as DASH to reduce BP and prevent ASCVD. - Home BP monitoring 1-2 x day with goal of <140/90. - Seek immediate medical attention for chest pain, palpitations, SOB, syncope, or sudden changes in mental status. - Do not change or discontinue current prescriptions without first consulting health care provider Assessment & Plan (05/18/2023 1:53 PM EDT): - Aerobic exercise to reduce BP. Initial goal of 30 min walk 3-5x/week. Increase as tolerated. - low-sodium diet (goal: <2g/day) and heart healthy diet such as DASH to reduce BP and prevent ASCVD. - Home BP monitoring 1-2 x day with goal of <140/90. - Seek immediate medical attention for chest pain, palpitations, SOB, syncope, or sudden changes in mental status. - Do not change or discontinue current prescriptions without first consulting health care provider Assessment & Plan (03/05/2023 3:44 PM EDT): - Aerobic exercise to reduce BP. Initial goal of 30 min walk 3-5x/week. Increase as tolerated. - low-sodium diet (goal: <2g/day) and heart healthy diet such as DASH to reduce BP and prevent ASCVD. - Home BP monitoring 1-2 x day with goal of <140/90. - Seek immediate medical attention for chest pain, palpitations, SOB, syncope, or sudden changes in mental status. - Do not change or discontinue current prescriptions without first consulting health care provider Herpes simplex 02/16/2012 Pure hypercholesterolemia 02/16/2012 Renal stone 02/16/2012 Urinary incontinence 02/16/2012 Tobacco dependence syndrome 09/24/1959 Resolved Problems Problem Noted Date Diagnosed Date Resolved Date Acute upper respiratory infection 01/16/2023 01/17/2023 Candidal vulvovaginitis 01/16/2023 042 02/2023 Candidiasis of skin 01/16/2023 01/18/20 Influenza-like symptoms 01/16/202312/24 Encounters Date Type Department Care Team Description 09/25/2024 Refill [facility] [address] [place] [address] Hyun Resendiz MD Type 2 diabetes mellitus with stage 3b chronic kidney disease, without long-term current use of insulin ([facility]) 09/18/2024 Telephone [facility] [address] [place] [address] Wendi Curry MA X-RAY RESULTS 09/04/2024 1:30 PM EST Clinical Support [facility] [address] [place] [address] Tomasa Xavier RN Essential hypertension 09/04/2024 Refill [facility] [address] [place] [address] Tomasa Xavier, PATRICIO Diabetic nephropathy associated with type 2 diabetes mellitus ([facility]) 09/04/2024 Travel 09/02/2024 Telephone [facility] [address] [place] [address] Hyun Resendiz MD 08/27/2024 Refill [facility] [address] [place] [address] Hyun Resendiz MD 08/18/2024 1:45 PM EST Office Visit [facility] [address] [place] [address] Hyun Resendiz MD Chronic pain of right knee (Primary Dx); Type 2 diabetes mellitus with chronic kidney disease, without long-term current use of insulin, unspecified CKD stage ([facility]); Chronic right hip pain; Chronic neck pain; Essential hypertension 08/18/2024 Travel from Last 3 Months Social History Tobacco Use Types Packs/Day Years Used Date Smoking Tobacco: Every Day Cigarettes Passive Smoke Exposure: Never Tobacco Cessation:Ready to Q uit: Not Asked; Counseling Given: Not Answered Alcohol Use Standard Drinks/Week Comments Never 0 (1 standard drink = 0.6 oz pur e alcohol) Depression Answer Date Recorded Patient Health Questionnaire-9 Score 20 10/02/2023 Patient Health Questionnaire-9 Score 20 10/02/2023 Last PHQ-9: Questionnaire Data Not on file 0 10/02/2023 Housing Stability Answer Date Recorded What is your housing situation today? I have ibrahima sing 07/24/[address] you li ve. Do you have problems with any of the following? None of the above 07/24/2023 Food Insecurity Answer Date Recorded Within the past 12 months, y ou worried that your food would run out before you got money to buy more: Never True 07/24/2023 Within the past 12 months,th e food you bought just didn't last and you didn't have enough money to get more: Never True Transportation Answer Date Recorded In the past 12 months, has l ack of transportation kept you from medical appts, meetings, work or from getting things needed for daily living? No 07/24/2023 Utilities Answer Date Recorded In the past 12 months, has t he electric, gas, oil or water company threatened to shut off services in your home? No 07/24/2023 Depression Answer Date Recorded Patient Health Questionnaire-2 Score 6 10/02/2023 Comments Unknown Sex and Gender Information Value Date Recorded Sex Assigned at Female 07/24/2022 10:16 AM EDT Legal Sex Female 10:16 AM EDT Gender Identity Female 07/24/2022 10:16 AM EDT Sexual Orientation Choose not to disclose 2021 10:16 AM EDT Last Filed Vital Signs Vital Sign Reading Time Taken Comments Blood Pressure 179/81 09/04/2024 1:43 PM EST Pulse 73 09/04/2024 1:43 PM EST Temperature 36.1 ??C (97 ??F) 08/18/2024 1:39 PM EST Respiratory Rate 16 09/04/2024 1:43 PM EST Oxygen Saturation 99% 09/04/2024 1:43 PM EST Inhaled Oxygen Concentration - - Weight 51.4 kg (113 lb 6.4 oz) 08/18/2024 1:39 P M EST Height 152.4 cm (5') 11/02/2023 2:19 PM EST Body Mass Index 22.15 11/02/2023 2:19 PM EST Plan of Treatment Upcoming Encounters Date Type Department Care Team (Late st Contact Info) Description 11/19/2024 2:00 PM EST Office Visit [facility] [address] [place] [phone] Hyun Resendiz MD [address] [place] [address] Health Maintenance Due Date Last Done Comments CT Colonography 1949 FIT 1950 FOBT 1950 Sigmoidoscopy 1950 Eye Exam 1959 Alcohol/Substance Use Screening 1961 Hepatitis C Screening 1967 DTaP/Tdap/Td Vaccines (1 - Tdap) 1968 Hepatitis A Vaccines (1 of 2 - Risk 2-dose series) 1968 Pneumococcal Vaccine: 50+ Years (1 of 2 - PCV) 1968 Zoster Vaccines (1 of 2) 1999 Hepatitis B Vaccines (1 of 3 - Risk 3-dose series) 2009 Depression Monitoring (PHQ-9) 04/01/2024 10/02/2023, 10/02/2023 COVID-19 Vaccine ( - season) 2024 06/28/2021, 06/07/2021 Influenza Vaccine (#1) 2024 RSV Patients and Patients Aged 60 years or older (1 - 1-dose 75+ series) 2024 Diabetes: Foot Exam 08/31/2024 08/31/2023, 08/31/2023, 08/31/2023, Additional history exists Depression Screening 10/02/2024 10/02/2023, 10/02/19 24 Diabetes: Hemoglobin A1C 11/18/2024 024, 11/02/2023, 08/03/2023, Additional history exists SDOH Screening 01/23/2025 01/24/2024 Tobacco Screening 08/18/2025 08/18/2024 Lipid Panel 09/04/2025 09/04/2024, 04/2 02/2023, 10/03/2021, Additional history exists Colorectal Cancer Screening 04/13/2026 FIT DNA/Cologuard 04/13/2026 04/20/2023, 04/13/2023 Colonoscopy 08/10/2026 08/10/2016 HIB Vaccines Aged Out No longer eligi ble based on patient's age to complete this topic HPV Vaccines Aged Out No longer eligi ble based on patient's age to complete this topic IPV Vaccines Aged Out No longer eligi ble based on patient's age to complete this topic Meningococcal Vaccine Aged Out No liliana shweta eligible based on patient's age to complete this topic RSV under 20 months Aged Out No longe r eligible based on patient's age to complete this topic Rotavirus Vaccines Aged Out No longer eligible based on patient's age to complete this topic Procedures Procedure Name Priority Date/Time Associated Diagnosis Comments XR KNEE 4+ VIEWS RIGHT Routine 2:10 PM EST Chronic pain of right knee XR HIP 2 OR 3 VIEWS RIGHT Routine 09/04/2024 2:10 PM EST Chronic right hip pain COMPREHENSIVE METABOLIC PANEL Routine 09/04/2024 1:55 PM EST Type 2 diabetes mellitus with chronic kidney disease, without long-term current use of insulin, unspecified CKD stage (CMS/HCC) ALBUMIN, RANDOM URINE W/CREATININE Routine 09/04/2024 1:55 PM EST Type 2 diabetes mellitus with chronic kidney disease, without long-term current use of insulin, unspecified CKD stage (CMS/HCC) LIPID PANEL, STANDARD Routine 09/04/2024 1:55 PM EST Type 2 diabetes mellitus with chronic kidney disease, without long-term current use of insulin, unspecified CKD stage (CMS/HCC) POCT GLYCATED HEMOGLOBIN, TOTAL Routine 08/18/2024 1:44 PM EST Type 2 diabetes mellitus with chronic kidney disease, without long-term current use of insulin, unspecified CKD stage (CMS/HCC) POCT GLUCOSE Routine 08/18/2024 1:41 PM EST Type 2 diabetes mellitus with chronic kidney disease, without long-term current use of insulin, unspecified CKD stage (CMS/HCC) FIT DNA/COLOGUARD CANCER SCREENING Routine 04/13/2023 6:02 PM EDT COLONOSCOPY Routine 08/10/2016 from Last 3 Months or Most Recently Relevant to Health Maintenance Results * XR Knee 4+ Views Right (09/04/2024 2:10 PM EST) Anatomical Region Laterality Modality Lower Extremities, Knee Right Radiogra phic Imaging 09/04/2024 2:10 PM EST Narrative 09/16/2024 12:58 PM EST ?[facility] ?[address] ?[place] [address] ?XRay Report ? Signed ? Patient: Dory Fuchs ?MR#: MM ?? [id number] ? : 1950 ?Acct:[id number] ? Age/Sex: 74 / F ?ADM Date: 09/04/24 ? Loc: HO.HHCX ? Attending Dr: Hyun Pizano MD ? Ordering Physician: Hyun Resendiz MD ?? Date of Service: 09/04/24 ?? Procedure(s): XR knee RT 4V ?? Accession Number(s): [id number] ? cc: Hyun Resendiz MD ? EXAMINATION: ?? XR KNEE RIGHT ? CLINICAL INFORMATION: ?? Pain. ? COMPARISON: ?? XR Knees both 04/29/2014 ? TECHNIQUE: ?? Four views of the right knee. ? FINDINGS: ?? No fracture or joint effusion. Alignment is anatomic. Joint spaces are ?? maintained. No abnormal soft tissue calcification. ? XR/XR knee RT 4V ?? IMPRESSION: ?? Unremarkable examination. ? Electronically signed by: ??Scott Farris MD ??09/16/2024 12:55 PM EST RP ? Dictated By: ?Scott Farris MD ? Signed By: ?<Electronically signed by Scott Farris MD in OV> ? 09/16/24 1255 ? DD/ 1410 ? TD/TT: 09/04/24 1420 ? Improvement Engineer: ? Procedure Note Danitza Velazquez - 09/16/2024 [facility] [address] [place] [address] XRay Report Signed Patient: Neva Fuchs#: MM [id number] : 9Acct:[id number] Age/Sex: 74 / FADM Date: 09/04/24 Loc: HO.HHCX Attending Dr: Hyun Pizano MD Ordering Physician: Hyun Resendiz MD Date of Service: 09/04/24 Procedure(s): XR knee RT 4V Accession Number(s): [id number] cc: Hyun Resendiz MD EXAMINATION: XR KNEE RIGHT CLINICAL INFORMATION: Pain. COMPARISON: XR Knees both 04/29/2014 TECHNIQUE: Four views of the right knee. FINDINGS: No fracture or joint effusion. Alignment is anatomic. Joint spaces are maintained. No abnormal soft tissue calcification. XR/XR knee RT 4V IMPRESSION: Unremarkable examination. Electronically signed by: Scott Farris MD 09/16/2024 12:55 PM EST Dictated By: Scott Farris MD Signed By: <Electronically signed by Scott Farris MD in OV> 09/16/24 1255 DD/ 1410 TD/TT: 09/04/24 1420 Improvement Engineer: us Hyun Pizano MD IMG XR PROCEDURES Evangelista hiren Result - Final * XR Hip 2 or 3 Views Right (09/04/2024 2:10 PM EST) Anatomical Region Laterality Modality Lower Extremities, Hip Right Radiograp hic Imaging 09/04/2024 2:10 PM EST Narrative 10/23/2024 10:46 AM EST ?[facility] ?[address] ?[place] [address] ?XRay Report ? Signed ? Patient: Dory Fuchs ?MR#: [id number] ?? [id number] ? : 1950 ?Acct:[id number] ? Age/Sex: 74 / F ?ADM Date: 12/12/24 ? Loc: HO.HHCX ? Attending Dr: Hyun Pizano MD ? Ordering Physician: Hyun Resendiz MD ?? Date of Service: 09/04/24 ?? Procedure(s): XR hip RT min 2V ?? Accession Number(s): [id number] ? cc: Hyun Resendiz MD ? EXAMINATION: ?? XR RIGHT HIP ? CLINICAL INFORMATION: ?? Pain. ? COMPARISON: ?? XR Right hip 09/05/2013 ? TECHNIQUE: ?? Two views of the right hip. ? FINDINGS: ?? Surgical clips are projected over the right inguinal region. Mild to ?? moderate superior joint space narrowing of the right hip is present ?? accompanied by moderate subchondral sclerosis of the superior ?? acetabular margin. No fractures or subluxations noted. Incidental note ?? made of pelvic phleboliths. Normal overall bone mineralization. ? XR/XR hip RT min 2V ?? IMPRESSION: ?? *Mild-moderate osteoarthritis of the right hip. ? Electronically signed by: ??Silver Mandel MD ??10/23/2024 10:43 AM EST RP ? Dictated By: ?Silver Mandel MD ? Signed By: ?<Electronically signed by Silver Mandel MD in OV> ? 10/23/24 1043 ? DD/ 1410 ? TD/TT: 09/04/24 1420 ? Improvement Engineer: EF ? Procedure Note Caroline, Image - 10/23/2024 [place] [address] XRay Report Signed Patient: Neva Fuchs#: [id number] : 9Acct:[id number] Age/Sex: 74 / FADM Date: 09/04/24 Loc: HO.HHCX Attending Dr: Hyun Pizano MD Ordering Physician: Hyun Resendiz MD Date of Service: 09/04/24 Procedure(s): XR hip RT min 2V Accession Number(s): [id number] cc: Hyun Resendiz MD EXAMINATION: XR RIGHT HIP CLINICAL INFORMATION: Pain. COMPARISON: XR Right hip 09/05/2013 TECHNIQUE: Two views of the right hip. FINDINGS: Surgical clips are projected over the right inguinal region. Mild to moderate superior joint space narrowing of the right hip is present accompanied by moderate subchondral sclerosis of the superior acetabular margin. No fractures or subluxations noted. Incidental note made of pelvic phleboliths. Normal overall bone mineralization. XR/XR hip RT min 2V IMPRESSION: *Mild-moderate osteoarthritis of the right hip. Electronically signed by: Silver Mandel MD 10/23/2024 10:43 AM EST RP Dictated By: Silver Mandel MD Signed By: <Electronically signed by Silver Mandel MD in OV> 10/23/24 1043 DD/ 1410 TD/TT: 09/04/24 1420 Improvement Engineer: EF us Hyun Pizano MD IMG XR PROCEDURES Fin al Result * Albumin, Random Urine W/Creatinine (09/04/2024 1:55 PM EST) Creatinine, Urine 32.04 mg/dL [facility] Microalbumin Urine 9.0 mg/L [facility] Microalbum Creatinine Ratio Ur 28.0 <30 ug/mg cr [facility] Comment:Albumin/Creatinine R atio Reference Ranges: Normal: < 30 ug/mg creatinine Microalbuminuria: 30 - 300 ug/mg creatinineClinical Albuminuria: > 300 ug/mg creatinine Urine (Urine, Random) 09/04/2024 1:55 PM EST 09/04/2024 5:02 PM EST us Hyun Pizano MD LAB URINE ORDERABLES Final Result [facility] [address] [place] [phone] * (ABNORMAL) Lipid Panel, Standard (09/04/2024 1:55 PM EST) Triglycerides 159(H) <150 mg/dL [facility] Comment:Desirable Triglyceri de: less than 150 mg/dLBorderline High Triglyceride 150-199 mg/dLHigh Triglyceride: 200-499 mg/dLVery High Triglyceride: greater than or equal to 5OO mg/dL Cholesterol 176 <200 mg/dL [facility] Comment:Desirable Cholestero l: less than 200 mg/dLBorderline High Cholesterol: 200-239 mg/dLHigh Cholesterol: greater than 239 mg/dL LDL Cholesterol Calculated 98 <100 mg/dL [facility] Comment:Desirable LDL: less than 100 mg/dLNear Optimal/Above Optimal LDL: 110- 129 mg/dLBorderline High LDL: 130-159 mg/dLHigh LDL: 160-189 mg/dLVery High LDL: greater than or equal to 190 mg/dL HDL Cholesterol 47 >40 mg/dL [facility] Comment:Desirable HDL: great er than 40 mg/dL Note: This HDL assay may give artificially low results in patients with liver disease. Blood Venous blood specimen / Unknown 09/04/2024 1:55 PM EST 09/04/2024 4:37 PM EST us Hyun Pizano MD LAB BLOOD ORDERABLES Final Result [facility] [address] [place] [phone] * (ABNORMAL) Comprehensive Metabolic Panel (09/04/2024 1:55 PM EST) Sodium 139 135 - 145 mmol/L [facility] Potassium 4.6 3.3 - 5.1 mmol/L [facility] Chloride 106 96 - 108 mmol/L [facility] Carbon Dioxide 26 22 - 29 mmol/L [facility] Anion Gap 12 12 - 20 [facility] Urea Nitrogen (BUN) 13 9 - 16 mg/dL [facility] Creatinine, Serum 1.36 0.5 - 1.4 mg/dL [facility] Estimated Glomerular Filt Rate 38 [facility] Comment:Chronic Kidney Disea se: Estimated GFR < 60 mL/min/[id number] Kidney Disease: Estimated GFR < 15 mL/min/1.73m2 Glucose 169(H) 60 - 115 mg/dL [facility] Calcium 9.7 8.4 - 10.2 mg/dL [facility] Bilirubin, Total 0.5 0.0 - 1.0 mg/dL [facility] Aspartate Amino Transferase 25 5 - 31 U/L [facility] Alanine Aminotransferase 22 0 - 31 U/L [facility] Total Protein 7.7 6.5 - 8.0 g/dL [facility] Albumin Level 4.2 3.5 - 5.0 g/dL [facility] Alkaline Phosphatase 118(H) 39 - 117 U/L [facility] Blood Venous blood specimen / Unknown 09/04/2024 1:55 PM EST 09/04/2024 4:37 PM EST Hyun Pizano MD LAB BLOOD ORDERABLES Final Result [facility] [address] [place] [phone] * (ABNORMAL) POCT HGB A1C (08/18/2024 1:44 PM EST) Hemoglobin A1C 9.2(A) 4.0 - 6.0 % QC Media Lot # [id number] Lot# Expiration Date Blood 08/18/2024 1:44 PM EST Hyun Pizano MD POINT OF CARE TEST EN TER/EDIT ORDERABLES Final Result * (ABNORMAL) POCT Glucose (08/18/2024 1:41 PM EST) Pathologist [facility] Glucose Blood, POC 204(A) 60 - 200 mg/dL QC Media Lot # [id number] Lot# Expiration Date Blood Capillary blood specimen / Unknown 08/18/2024 1:41 PM EST Hyun Pizano MD POINT OF CARE TEST EN TER/EDIT ORDERABLES Final Result * (ABNORMAL) FIT DNA/Cologuard Cancer Screening (04/13/2023 6:02 PM EDT) Cologuard Cancer Screen Positive Stool 04/13/2023 6:02 PM EDT Hyun Pizano MD HEALTH MAINTENANCE Fi nal Result * Hm Colonoscopy (08/10/2016) Colonoscopy Normal Normal Comment:Recommended 5 year f ollow up due to history of polyps Historical Provider HEALTH MAINTENANCE Final Result from Last 3 Months or Most Recently Relevant to Health Maintenance Insurance [facility] Care Teams Plug Saw Operator Relationship Specialty Start Date End Date Hyun Resendiz MD [address] [place] [phone] PCP - General Family Medicine 05/21/19
--- OUTSIDE RECORDS SUMMARY | 2024-10-28 13:52 | XMS_ITS | Encounter Summary ---
Author Organization [employer] [facility] Address [address] [place] [address] Care Team Providers Care Basic Sciences Dean Name Role Phone Hyun Resendiz MD Primary Care Provide r Reason for Visit * Reason Comments Med Refill Encounter Details Date Type Department Care Team (Late Contact Info) Description 02/21/2023 Refill [facility] [address] [place], [place] [phone] Hyun Resendiz MD [address] [place] [address] [phone] Recurrent UTI Social History Tobacco Use Types [...] Description 11/19/2024 2:00 PM EST Office Visit [facility] [address] [place] [address] [phone] Hyun Resendiz MD [address] [place] [address] [phone] documented as of this encounter Visit Diagnoses Diagnosis Recurrent UTI Urinary tract infection, site not specified documented in this encounter Care Teams Basic Sciences Dean Relationship Specialty Start Date End Date Hyun Resendiz MD [address] [place] [phone] PCP - General Family Medicine 05/21/19 documented as of this encounter
--- OUTSIDE RECORDS SUMMARY | 2024-10-28 13:52 | XMS_ITS | Encounter Summary ---
Author Organization [employer] Address [address] 7[address] [place] [address] Care Team Providers Care Supervisor Carbon Electrodes Name Role Phone Hyun Resendiz MD Primary Care Provide r Reason for Visit * Reason Comments Med Refill Encounter Details Date Type Department Care Team ([facility] st Contact Info) Description 04/21/2024 Refill [facility] [address] [place], [place] [phone] Hyun Resendiz MD [address] [place] [address] Persistent asthma without complication, unspecified asthma severity Social History Tobacco Use Types Packs/Day Years [...] housing situation today? I have ibrahima pan 07/24/[address] you li [...] Description 11/19/2024 2:00 PM EST Office Visit [facility] MEDICINE [address] [place] [phone] Hyun Resendiz MD [address] [place] [address] documented as of this encounter Visit Diagnoses Diagnosis Persistent asthma without complication, unspecified asthma severity documented in this encounter Additional Health Concerns Assessment Noted Time PHQ-9 Depression Total Score: 20 024 3:17 PM EST documented as of this encounter Care Teams Supervisor Carbon Electrodes Relationship Specialty Start Date End Date Hyun Resendiz MD [address] [place] [phone] PCP - General Family Medicine 05/21/19 documented as of this encounter
== END 2024-10-28 14:06 | disposition home or self-care (01) ==
PROVIDERS: PCP Internal Medicine; Visit Provider Orthopaedic Surgery
DX: M25.551 Pain in right hip (principal); M25.561 Pain in right knee
CPT/HCPCS: 99203; G2211

== ENCOUNTER → 2024-10-28 13:40 | Outpatient (BNVA) | payer OTHER, SELFPAY | PROVIDERS: PCP Internal Medicine; Visit Provider Orthopaedic Surgery | DX: M25.551 Pain in right hip (principal); M25.561 Pain in right knee | CPT/HCPCS: 99202 ==

== ENCOUNTER 2024-12-16 11:13 | Outpatient (REF) | payer OTHER, SELFPAY ==
[2024-12-16 11:40] LABS: MANUAL DIFF FLAG NO
[2024-12-16 12:04] LABS: Basophils Absolute Auto 0.1 X10*3/uL (0.0-0.2); Basophils Percent Auto 1.3 % (0-2); Eosinophils Absolute Auto 0.2 X10*3/uL (0.0-0.4); Hematocrit 37.3 % (37.0-47.0); Hemoglobin 12.5 g/dl (12.0-16.0); Imm Gran Abs Auto 0.03 X10*3/uL (0.00-0.03); Imm Gran Pct Auto 0.5 % (0.0-0.4); Lymphocytes Absolute Auto 1.6 X10*3/uL (1.2-4.9); Lymphocytes Percent Auto 25.7 % (20-40); Mean Corpuscular HGB Conc 33.5 g/dl (31.0-35.0); Mean Corpuscular Hemoglobin 31.6 pg (27.0-33.0); Mean Corpuscular Volume 94.4 fL (80.0-98.0); Mean Platelet Volume 9.3 fL (9.4-12.3); Monocytes Absolute Auto 0.8 X10*3/uL (0.1-1.2); Monocytes Percent Auto 13.8 % (2-11); Neutrophils Absolute Auto 3.3 x10*3/uL (2.0-8.3); Neutrophils Percent Auto 54.7 % (45-73); Platelet Count 271 X10*3/uL (160-400); Red Blood Count 3.95 X10*6/uL (4.20-5.50); Red Cell Distribution Width 13.2 % (11.0-16.0)
[2024-12-16 12:13] LABS: Appearance Urine Clear; Color Urine Dark Yellow; Glucose Urine UA 500 mg/dL (Negative); Leukocyte Esterase Urine Small (1+) (Negative); Nitrite Urine Negative (Negative); PH 5.5 (5.0-9.0); UMIC TRIGGER UA YES; Urine Blood Negative (Negative); Urine Ketones Trace mg/dL (Negative); Urine Protein Trace mg/dL (Neg-Trace)
[2024-12-16 12:29] LABS: Bacteria Urine 2+ (None Seen); Hyaline Casts Urine 0-2 /LPF (0-2); RBC Urine 0-2 /HPF (0-2)
[2024-12-16 12:35] LABS: Anion Gap 11 (12-20); Blood Urea Nitrogen 18 mg/dL (9-16); Carbon Dioxide 25 mmol/L (22-29); Chloride 107 mmol/L (96-108); Estimated Glomerular Filt Rate 33; Magnesium 1.9 mg/dL (1.6-2.6); Potassium 4.9 mmol/L (3.3-5.1); Sodium 138 mmol/L (135-145)
[2024-12-16 12:37] LABS: Parathyroid Hormone Intact 135.7 pg/mL (8.7-77.1)
[2024-12-16 12:52] LABS: Vitamin D 25-OH Total 8.6 ng/mL (>30)
[2024-12-16 12:54] LABS: Microalbum/Creatinine Ratio Ur 7.8 ug/mg cr (<30); Protein/Creatinine Ratio, Ur 0.08 (<0.2); Total Protein Urine Random 23 mg/dL (<12)
== END 2024-12-16 11:14 | disposition home or self-care (01) ==
LOC: HO.LAB 11:13
PROVIDERS: PCP Internal Medicine; Visit Provider Internal Medicine Nephrology
DX: E11.21 Type 2 diabetes mellitus with diabetic nephropathy (principal); N18.31 Chronic kidney disease, stage 3a
CPT/HCPCS: 36415; 80051; 81001; 82040; 82043; 82306; 82310; 82565; 82570; 83735; 83970; 84100; 84156; 84520; 85025

== ENCOUNTER 2025-05-22 13:22 | Outpatient (AMB) | payer OTHER, SELFPAY ==
--- NOTE | 2025-05-22 13:26 | A.OFFVIS_ITS ---
Vital Signs 05/22/25 13:31 Height 5 ft Weight 110 lb BMI 21.5 BP 128/70 Blood Pressure Location Lt brachial Pulse 70 Intake Visit Reasons: Follow up medication Lockstitch Sleeve Maker Required: Yes Lockstitch Sleeve Maker Language: Founder / Ceo Services: Lockstitch Sleeve Maker Present (in person) Information Interpreted: non-clinical & clinical Accompanied by: Self / Same As Patient Allergies ceftriaxone Allergy (Severe, Verified 05/22/25 13:33) Anaphylaxis doxycycline Allergy (Mild, Verified 05/22/25 13:33) Itching Penicillins Allergy (Mild, Verified 05/22/25 13:33) RASH Sulfa (Sulfonamide Antibiotics) (Sulfa (Sulfonamides)) Allergy (Mild, Verified 05/22/25 13:33) RASH hydromorphone (From DILAUDID) Allergy (Unknown, Verified 05/22/25 13:33) NAUSEA & VOMITING HPI HPI Follow up medication: Details: Assessment & Plan (1) Pre-op examination: Code(s): Z01.818 - Encounter for other preprocedural examination Category: Medical (2) Chronic kidney disease (CKD) stage G4/A3, severely decreased glomerular filtration rate (GFR) between 15-29 mL/min/1.73 square meter and albuminuria creatinine ratio greater than 300 mg/g: Code(s): N18.4 - Chronic kidney disease, stage 4 (severe) Category: Medical (3) DVT of axillary vein, acute right: Comment: 09/2022 in toe Code(s): I82.A11 - Acute embolism and thrombosis of right axillary vein Category: Medical (4) Serrated adenoma of colon: Code(s): D12.6 - Benign neoplasm of colon, unspecified Category: Medical (5) Constipation: Code(s): K59.00 - Constipation, unspecified Category: Medical (6) GERD (gastroesophageal reflux disease): Code(s): K21.9 - Gastro-esophageal reflux disease without esophagitis Category: Medical Plan HUNGARIAN #[id number] She says she has had 4 surgeries between IVC filter and a (? fem/pop) bypass she is still recovering from this. She has lower abd pain r/t this and numbness in her groins and upper legs. She continues on her pantoprazole 40 mg once a day and on her Colace and senna with good control of her constipation. She had a period of severe CIC after the surgery and they thought they may have to remove this with a machine, but then she started moving her bowels again. She has a new medication which is Eliquis. This is prescribed by a Dr. Dill at [facility] vascular at [facility] - we would need clearance before considering repeat colonoscopy. We will consider discussing this further in 6 mos as she recovers. She also has suffered the recent of her daughter. ROV 6 mos. COLONOSCOPY BIOPSY TODAY'S visit French #Cinthya Talbot She continues on her pantoprazole 40 mg once a day and on her Colace and senna with good control of her constipation. She says she is doing well with her GI regimen. She would like us to call her son to schedule as he speaks [place]. Her last was in 2016 and she has sessile serrated adenomas. She denies any cardiac or respiratory problems. There are no prior problems with anesthesia or sedation. There are no infectious disease problems. The there is some confusion the record of it appears that she had 4 hyperplastic polyps in 2016 but a remote history of a serrated adenoma. ROV 6m os. PFSH Medical History (Updated 05/22/25 @ 13:56 by FLORENTINO Tapia) Vaginal andreas COVID-19 Serrated adenoma of colon Gallbladder & bile duct stone with obstruction High cholesterol Hyperkalemia Hypertension Kidney failure Diabetes Surgical History (Updated 05/22/25 @ 13:56 by FLORENTINO Tapia) Hx of colonoscopy History of bladder surgery Family History Father Diabetes Heart attack Mother Diabetes Alzheimer disease Family/Other Diabetes Social History Household Members: None Alcohol intake: never Cigarettes Per Day: 4 Review of Systems Const Denies fatigue, Denies fever(s), Denies night sweats, Denies poor appetite and Denies weight loss ENT Reports Normal hearing present, Denies dental pain, Denies dysphagia, Denies hearing loss, Denies mouth pain, Denies odynophagia, Denies throat swelling, Denies tongue swelling and Reports other (Dentition adequate) Card Reports no additional complaints Resp Reports no additional complaints GI Details: Denies abdominal pain, Denies melena, Denies bloating, Denies hematochezia, Reports constipation, Denies GI cramping, Denies dysphagia, Denies excessive flatus, Denies early satiety, Reports heartburn, Denies diarrhea, Denies nausea, Denies odynophagia, Denies vomiting and Denies hematemesis Skin/Breast Denies pruritus, Denies lesions, Denies rash and Denies jaundice Neuro Reports Normal hearing present and Denies Abnormal speech present Endo Denies fatigue Aller/Immun Denies throat swelling and Denies tongue swelling Physical Exam Vital Signs: Last Vital Signs Pulse 70 05/22/25 13:31 BP 128/70 05/22/25 13:31 BMI result Body Mass Index 21.5 Const General: cooperative, no acute distress, well developed and well groomed Nutritional Appearance: average body habitus and well nourished Orientation/consciousness: oriented to person, oriented to place and oriented to time Limitations: language barrier HEENT Head: Yes normocephalic and Yes atraumatic Eyes General: appearance normal, both eyes and all related structures Pupils: Equal, round and reactive pupils present Neck Neck: Yes normal visual inspection and Yes no lymphadenopathy Thyroid: Thyroid normal Resp Effort & Inspection: normal respiratory effort and able to speak in complete s entences Auscultation: clear to auscultation bilaterally Cardio Rate: regular rate Rhythm: regular rhythm Heart sounds: Normal, physiologic split S2 sound present Peripheral pulses: radial pulses present and posterior tibial pulses present GI Inspection: No distended and No Abdominal panniculus present Palpation (GI): Soft to palpation, nontender, no guarding, not rigid and No he patosplenomegaly present Percussion: Yes normal to percussion Auscultation: normal bowel sounds Rectal Exam - Female: deferred Skin General skin exam: no rashes or lesions noted, turgor normal, skin not dry, no jaundice, No spider nevi and no striae Rashes: no rashes Nails: normal Neuro General: oriented to person, oriented to place and oriented to time Cranial nerves: Yes Equal, round and reactive pupils present and Yes Normal hearing present Speech: No Abnormal speech present Extrem General: Yes normal to inspection, No clubbing, No cyanosis and No edema Psych Appearance: grossly normal and well kempt Mental Status: mental status grossly normal Speech and movement: Normal speech and movement present Affect: normal affect Attitude: cooperative Thought process: Normal thought process present and not confabulating Thought content: Normal thought content present Insight: Good insight present (Psych) Judgement: Good judgement present (Psych) Assessment & Plan Assessment & Plan (1) Serrated adenoma of colon: Comment: 2015Desean Code(s): D12.6 - Benign neoplasm of colon, unspecified Category: Medical (2) Chronic kidney disease (CKD) stage G4/A3, severely decreased glomerular filtration rate (GFR) between 15-29 mL/min/1.73 square meter and albuminuria creatinine ratio greater than 300 mg/g: Code(s): N18.4 - Chronic kidney disease, stage 4 (severe) Category: Medical (3) GERD (gastroesophageal reflux disease): Code(s): K21.9 - Gastro-esophageal reflux disease without esophagitis Category: Medical (4) Constipation: Code(s): K59.00 - Constipation, unspecified Category: Medical Plan French #Cinthya Live She continues on her pantoprazole 40 mg once a day and on her Colace and senna with good control of her constipation. She says she is doing well with her GI regimen. She would like us to call her son to schedule as he speaks [place]. Her last was in 2016 and she has sessile serrated adenomas. She denies any cardiac or respiratory problems. There are no prior problems with anesthesia or sedation. There are no infectious disease problems. The there is some confusion the record of it appears that she had 4 hyperplastic polyps in 2016 but a remote history of a serrated adenoma. ROV 6m os. COLONOSCOPY BIOPSY Orders: Orders Colonoscopy - GI Use Only 05/22/25 D12.6 - Benign neoplasm of colon, unspecified Medications: New peg 3350-electrolytes 236-22.74-6.74 -5.86 gram (Golytely) until fecal effluent is clear; do not exceed a total volume of 2,000 mL 240 mL PO Q10M 4,000 mL 0RF 1 day Z12.11 - Encounter for screening for malignant neoplasm of colon Refilled pantoprazole 40 mg PO BID 180 tabs 2RF K21.9 - Gastro-esophageal reflux disease without esophagitis docusate sodium 100 mg PO DAILY 30 caps 6RF sennosides (senna) 17.2 mg (2 x 8.6 mg) PO BEDTIME 60 tabs 6RF for constipation Coding Level of Care Code Est Pt Level 4 (00291) Diagnoses Serrated adenoma of colon D12.6 Chronic kidney disease (CKD) stage G4/A3, severely decreased glomerular filtration rate (GFR) between 15-29 mL/min/1.73 square meter and albuminuria creatinine ratio greater than 300 mg/g N18.4 GERD (gastroesophageal reflux disease) K21.9 Constipation K59.00 Time Spent (min) 36
[2025-05-22 13:31] VITALS: BP 128/70; PULSE 70; BMI 21.5
--- OUTSIDE RECORDS SUMMARY | 2025-05-22 13:36 | XMS_ITS | Encounter Summary ---
Author Organization [employer] Address [address] [facility] [address] [place] [address] Care Team Providers Care Crate Tier Name Role Phone Hyun Resendiz MD Primary Care Provide r Reason for Visit * Reason Comments Med Refill Encounter Details Date Type Department Care Team ([facility] st Contact Info) Description 06/24/2023 Refill [facility] MEDICINE [address] [place], [place] [phone] Hyun Resendiz MD [address] [place] [address] Recurrent UTI Social History Tobacco Use Types [...] as of this encounter Plan of Treatment Not on file documented as of this encounter Visit Diagnoses Diagnosis Recurrent UTI Urinary tract infection, site not specified documented in this encounter Additional Health Concerns Assessment Noted Time PHQ-9 Depression Total Score: 16 023 2:51 PM EDT documented as of this encounter Care Teams Crate Tier Relationship Specialty Start Date End Date Hyun Resendiz MD [address] [place] [address] PCP - General Family Medicine 05/21/19 documented as of this encounter
--- OUTSIDE RECORDS SUMMARY | 2025-05-22 13:36 | XMS_ITS | Encounter Summary ---
Author Organization [employer] Address [address] [facility] 7t [place] [address] Care Team Providers Care Diaphragm Builder Name Role Phone Hyun Resendiz MD Primary Care Provide r Reason for Visit * Reason Comments Med Refill Encounter Details Date Type Department Care Team ([facility] st Contact Info) Description 02/14/2023 Refill [facility] [address] [place], [place] [phone] Hyun Resendiz MD [address] [place] [address] Social History Tobacco Use Types Packs/Day Years [...] on filedocumented in this encounter Care Teams Diaphragm Builder Relationship Specialty Start Date End Date Hyun Resendiz MD [address] [place], [place] [phone] PCP - General Family Medicine 05/21/19 documented as of this encounter
--- OUTSIDE RECORDS SUMMARY | 2025-05-22 13:36 | XMS_ITS | Encounter Summary ---
Author Organization [employer] Address [address] [place] [address] Care Team Providers Care Application Support Administrator Name Role Phone Hyun Resendiz MD Primary Care Provide r Reason for Visit * Reason Comments Med Refill Encounter Details Date Type Department Care Team ([facility] st Contact Info) Description 05/19/2025 Refill [facility] MEDICINE [address] [place], [place] [phone] Hyun Resendiz MD [address] [place] [address] COVID-19 virus infection Social History Tobacco Use Types Packs/Day Years Used Date Smoking Tobacco: Every Day Cigarettes Passive Smoke Exposure: Current Alcohol Use Standard Drinks/Week Comments Never 0 (1 standard drink = 0.6 oz pur e alcohol) Depression Answer Date Recorded Patient Health Questionnaire-9 Score 14 04/10/2025 Patient Health Questionnaire-9 Score 14 04/10/2025 Last PHQ-9: Questionnaire Data Not on file 0 04/10/2025 Housing Stability Answer Date Recorded What is [...] Answer Date Recorded Patient Health Questionnaire-2 Score 4 04/10/2025 Internet Access Answer Date Recorded Internet Access Q1 No 11/05/2024 Internet Access Q2 I do not want or need it 10/25 Comments Unknown Sex and Gender Information Value Date Recorded Sex Assigned at Female 07/24/2022 10:16 AM EDT Legal Sex Female 10:16 AM EDT Gender Identity Female 07/24/2022 10:16 AM EDT Sexual Orientation Choose not to disclose 2021 10:16 AM EDT documented as of this encounter Plan of Treatment Not on file documented as of this encounter Visit Diagnoses Diagnosis COVID-19 virus infection documented in this encounter Additional Health Concerns Assessment Noted Time PHQ-9 Depression Total Score: 14 025 2:49 PM EDT documented as of this encounter Care Teams Application Support Administrator Relationship Specialty Start Date End Date Hyun Resendiz MD [address] [place] [address] PCP - General Family Medicine 05/21/19 documented as of this encounter
--- OUTSIDE RECORDS SUMMARY | 2025-05-22 13:36 | XMS_ITS | Encounter Summary ---
Author Organization [employer] Address [address] [facility] [address]t [place] [address] Care Team Providers Care Recreation Director Name Role Phone Hyun Resendiz MD Primary Care Provide r Reason for Visit * Reason Comments Med Refill Encounter Details Date Type Department Care Team (Late st Contact Info) Description 02/21/2023 Refill [facility] MEDICINE [address] [place], [place] [phone] Hyun Resendiz MD [address] [place], [place] [phone] Recurrent UTI Social History Tobacco Use Types [...] specified documented in this encounter Care Teams Recreation Director Relationship Specialty Start Date End Date Hyun Resendiz MD [address] [place], [place] [phone] PCP - General Family Medicine 05/21/19 documented as of this encounter
--- OUTSIDE RECORDS SUMMARY | 2025-05-22 13:36 | XMS_ITS | Clinical Summary ---
Author Organization [employer] Address [address] [place] [address] 7t [place] [address] Care Team Providers Care Trial Attorney Name Role Phone Hyun Resendiz MD Primary [...] MANANA Y EN LA NOCHE 105 g 023 Active Eliquis 5 MG tablet 023 Active Banophen 25 MG tablet TOME RICARDO TABLETA TODOS LOS D AL ACOSTARSE CUANDO SEA NECESARIO 023 Active LORazepam (Ativan) 0.5 MG tablet TOME RICARDO TABLETA AMANDA VECES AL D A CUANDO SEA NECESARIO 023 Active losartan (Cozaar) 50 MG tablet TAKE 1 TABLET BY MOUTH 1 TIME EACH DAY. 023 Active metoprolol tartrate (Lopressor) 50 MG tablet TOME RICARDO TABLETA DOS VECES AL D A 023 Active oxybutynin XL (Ditropan-XL) 15 MG 24 hr tablet TOME RICARDO TABLETA TODOS LOS D Active Veltassa 8.4 g pack MIX AND DRINK 1 PACKET BY MOUTH DIRECTED 3 TIMES PER WEEK Active senna (Senokot) 8.6 MG tablet TOME DOS TABLETAS POR V A ORAL TODOS LOS D AL ACOSTARSE FOR CONSTIPATION Active Mapap 500 MG capsule Take 1 capsule by mouth if needed in the morning, at noon, in the evening, and at bedtime for fever. Active Aspirin Low Dose 81 MG EC tablet Take 1 tablet by mouth in the morning. Active oxyCODONE (Roxicodone) 5 MG immediate release tablet Take 1 tablet by mouth every 6 (six) hours if needed for pain. Active pantoprazole (ProtoNix) 40 MG EC tablet Take 1 tablet by mouth 1 (one) time each day. Active triamcinolone (Kenalog) 0.1 % creamIndications :Rash Apply topically if needed in the morning and at bedtime (pain and swelling). 30 g 024 Active Blood Glucose Monitoring Suppl (OTC PR GroupStswabr [place] Lite) w/Device kitIndications:T ype 2 diabetes mellitus with stage 3b chronic kidney disease, without long-term current use of insulin ([facility]) Use to test blood sugar 2 times daily 1 kit Active spironolactone (Aldactone) 25 MG tablet Take 12.5 mg by mouth in the morning. 024 Active Alcohol Swabs 70 % padsIndications: Type 2 diabetes mellitus with chronic kidney disease, without long-term current use of insulin, unspecified CKD stage ([facility]) Use 1 pad tid as directed 300 each 3 024 Active fluticasone furoate (Arnuity Ellipta) 100 MCG/ACT inhaler INHALE 1 PUFF BY MOUTH ONCE A DAY. RINSE MOUTH AFTER USE. 30 each 2 024 Active fluticasone (Flonase) 50 MCG/ACT nasal spray USE 1-2 SPRAYS BY INTRANASAL ROUTE EVERY DAY IN EACH NOSTRIL NEEDED 48 mL 3 12/04/2 024 Active cholecalciferol (Vitamin D-3) 50 MCG (1999) tabletIndication s:Diabetic nephropathy associated with type 2 diabetes mellitus (CMS/HCC) TAKE 1 TABLET BY MOUTH EVERY MORNING 90 tablet 1 Active SITagliptin (Januvia) 25 MG tabletIndication s:Type 2 diabetes mellitus with chronic kidney disease, without long-term current use of insulin, unspecified CKD stage (CMS/HCC) Take 1 tablet (25 mg) by mouth Once per day. 30 tablet 2025 Active fluticasone furoate (Arnuity Ellipta) 100 MCG/ACT inhalerIndicatio ns:Persistent asthma without complication, unspecified asthma severity Inhale 1 puff Once per day. 1 each 2025 Active FreeStyle lancets USE RAJINDER LO INDICADO AMANDA VECES AL SANKET 100 each Active FREESTYLE LITE test strip USE RAJINDER LO INDICADO AMANDA VECES AL SANKET 100 strip Active meclizine (Antivert) 12.5 MG tablet TOME RICARDO TABLETA AMANDA VECES AL SANKET CUANDO SEA NECESARIO 20 tablet 2 Active EPINEPHrine (Epipen) 0.3 MG/0.3ML injection syringeIndicatio ns:Allergy to cephalosporin INJECT 0.3 MG DIRECTED 1 TIME IF NEEDED FOR ANAPHYLAXIS FOR UP TO 4 DOSES. INJECT INTO UPPER LEG. CALL 911 AFTER USE. 1 each 1 Active glipiZIDE XL (Glucotrol XL) 2.5 MG 24 hr tabletIndication s:Diabetic nephropathy associated with type 2 diabetes mellitus (CMS/HCC) TAKE 1 TABLET BY MOUTH IN THE MORNING AND 1 TABLET AT NOON. DO NOT CRUSH, CHEW, OR SPLIT. 180 tablet 3 Active simvastatin (Zocor) 10 MG tablet TOME 1 TABLETA POR VIA ORAL TODOS LOS BANDA AL ACOSTARSE 90 tablet 3 025 Active methenamine hippurate (Hiprex) 1 g tabletIndication s:Recurrent UTI TOME 1 TABLETA POR VIA ORAL DOS VECES AL SANKET 180 tablet 1 025 Active empagliflozin (Jardiance) 10 MGIndications:Ty pe 2 diabetes mellitus with stage 3b chronic kidney disease, without long-term current use of insulin ([facility]) TAKE 1 TABLET BY MOUTH EVERY DAY 90 tablet 025 Active albuterol 108 (90 Base) MCG/ACT inhalerIndicatio ns:COVID-19 virus infection TAKE 2 PUFFS BY MOUTH EVERY 4 TO 6 HOURS IF NEEDED 18 g 1 025 Active albuterol 108 (90 Base) MCG/ACT inhalerIndicatio ns:COVID-19 virus infection TAKE 2 PUFFS BY MOUTH EVERY 4 TO 6 HOURS IF NEEDED 18 g 1 025 2024 Discontinued Active Problems Problem Noted Date Diagnosed Date Chronic pain of right knee 08/18/2024 Chronic right hip pain 08/18/2024 Type 2 diabetes mellitus wit h chronic kidney disease, without long-term current use of insulin 02/01/2024 Assessment & Plan (04/11/2025 9:24 AM EDT): Diabetes is: not controlled but improved - Lab Results Component Value Date HGBA1C 7.8 (A) 04/10/2025 HGBA1C 8.5 (A) 11/19/2024 HGBA1C 9.2 (A) 08/18/2024 - Lab Results Component Value Date MICROALBUR 9.0 09/04/2024 CREATININE 1.36 09/04/2024 - Diabetic eye exam:pending - Diabetic foot exam:pending - Continue lifestyle modifications - Continue current medications - Follow up: 3 months Assessment & Plan (11/19/2024 4:40 PM EST): Diabetes is: not controlled but improved - Lab Results Component Value Date HGBA1C 8.5 (A) 11/19/2024 HGBA1C 9.2 (A) 08/18/2024 HGBA1C 7.5 (A) 11/02/2023 - Lab Results Component Value Date MICROALBUR 9.0 09/04/2024 CREATININE 1.36 09/04/2024 -Changes: I added sitagliptin 25mg daily - Diabetic eye exam:up to date - Diabetic foot exam:referral done - Continue lifestyle modifications - Continue current medications - Follow up: 3 months Assessment & Plan (08/18/2024 5:04 PM EST): [...] Plan (02/01/2024 2:03 PM EDT): Referral to medical record specialist will be mail to her Peripheral [...] only Viral upper respiratory tract infection 08/03/20 Onychomycosis 08/03/2023 URI (upper respiratory infection) 05/18/2023 [...] 03/12/2012 Essential hypertension 02/16/2012 Assessment & Plan (04/11/2025 9:23 AM EDT): I advised: - Aerobic exercise to reduce BP. Initial [...] consulting health care provider Assessment & Plan (11/19/2024 4:39 PM EST): I advises: - Aerobic exercise to reduce BP. Initial [...] consulting health care provider Assessment & Plan (08/18/2024 5:03 PM EST): [...] upper respiratory infection 01/16/2023 01/17/2023 Candidal vulvovaginitis 01/16/202312/24 Candidiasis of skin 01/16/2023 01/18/20 Influenza-like symptoms 01/16/202312/24 Encounters Date Type Department Care Team Description 05/19/2025 Refill [facility] [address] [place] [phone] Hyun Resendiz MD COVID-19 virus infection 04/10/2025 2:30 PM EDT Office Visit [facility] [address] [place] [phone] Hyun Resendiz MD Essential hypertension (Primary Dx); Type 2 diabetes mellitus with chronic kidney disease, without long-term current use of insulin, unspecified CKD stage ([facility]); Chronic neck pain 04/10/2025 Travel 04/09/2025 Telephone [facility] [address] [place] [phone] Hyun Resendiz MD Chart Prep 04/01/2025 Patient Outreach [facility] [address] [place] [address] [phone] Hyun Resendiz MD Pre-visit Planning ([facility] screening completed on 11/05/2024) 03/26/2025 Refill [facility] [address] [place] [phone] Hyun Resendiz MD COVID-19 virus infection 03/13/2025 Refill [facility] [address] [place] [address] Hyun Resendiz MD Type 2 diabetes mellitus with stage 3b chronic kidney disease, without long-term current use of insulin (CMS/HCC) from Last 3 Months Social History Tobacco Use Types Packs/Day Years Used Date Smoking Tobacco: Every Day Cigarettes Passive Smoke Exposure: Current Tobacco Cessation:Ready to Q uit: Not Asked; [...] EDT Sexual Orientation Choose not to disclose 10/31/ 2022 10:16 AM EDT Last Filed Vital Signs Vital Sign Reading Time Taken Comments Blood Pressure 136/89 04/10/2025 1:34 PM EDT Pulse 86 04/10/2025 1:34 PM EDT Temperature 35.6 C (96 F) 04/10/2025 1:34 PM EDT Respiratory Rate 16 04/10/2025 1:34 PM EDT Oxygen Saturation 99% 04/10/2025 1:34 PM EDT Inhaled Oxygen Concentration - - Weight 50.2 kg (110 lb 9.6 oz) 04/10/2025 1:34 P M EDT Height 152.4 cm (5') 04/10/2025 1:34 PM EDT Body Mass Index 21.6 04/10/2025 1:34 PM EDT Plan of Treatment Health Maintenance Due Date Last Done Comments CT Colonography 1949 FIT 1949 FOBT 1949 Sigmoidoscopy 1949 Eye Exam 1959 Hepatitis C Screening 1967 DTaP/Tdap/Td Vaccines (1 - Tdap) 1968 Hepatitis A Vaccines (1 of 2 - Risk 2-dose series) 1968 Pneumococcal Vaccine: 50+ Years (1 of 2 - PCV) 1968 Zoster Vaccines (1 of 2) 1999 Hepatitis B Vaccines (1 of 3 - Risk 3-dose series) 2009 COVID-19 Vaccine ( - season) 2024 06/28/2021, 06/07/2021 RSV Patients and Patients Aged 60 years or older (1 - 1-dose 75+ series) 2024 Diabetes: Foot Exam 08/31/2024 08/31/2023, 08/31/2023, 08/31/2023, Additional history exists Influenza Vaccine (#1) 2025 Diabetes: Hemoglobin A1C 07/11/2025 025, 11/19/2024, 08/18/2024, Additional history exists Lipid Panel 09/04/2025 09/04/2024, 04/2 02/2023, 10/03/2021, Additional history exists Depression Monitoring 10/11/2025 04/10/2025, 025 Alcohol/Substance Use Screening 04/10/2026 04/10/2025 SDOH Screening 04/10/2026 04/10/2025 Tobacco Screening 04/10/2026 04/10/2025 Colorectal Cancer Screening 04/13/2026 FIT DNA/Cologuard 04/13/2026 04/20/2023, 04/13/2023 Colonoscopy 08/10/2026 08/10/2016 HIB Vaccines Aged Out No longer eligi ble based on patient's age to complete this topic HPV Vaccines Aged Out No longer eligi ble based on patient's age to complete this topic IPV Vaccines Aged Out No longer eligi ble based on patient's age to complete this topic Meningococcal B Vaccine Aged Out No l onger eligible based on patient's age to complete [...] Procedure Name Priority Date/Time Associated Diagnosis Comments POCT GLYCATED HEMOGLOBIN, TOTAL Routine 04/10/2025 1:36 PM EDT Type 2 diabetes mellitus with chronic kidney disease, without long-term current use of insulin, unspecified CKD stage (CMS/HCC) POCT GLUCOSE Routine 04/10/2025 1:35 PM EDT Type 2 diabetes mellitus with chronic kidney [...] Recently Relevant to Health Maintenance Results * (ABNORMAL) POCT HGB A1C (04/10/2025 1:36 PM EDT) Hemoglobin A1C 7.8(A) 4.0 - 5.7 % QC Media Lot # [id number] Lot# Expiration Date Blood 04/10/2025 1:36 PM EDT Hyun Pizano MD POINT OF CARE TEST EN TER/EDIT ORDERABLES Final Result * POCT Glucose (04/10/2025 1:35 PM EDT) Pathologist [facility] Glucose Blood, POC 152 60 - 200 mg/dL QC Media Lot # [id number] Lot# Expiration Date Blood Capillary blood specimen / Unknown 04/10/2025 1:35 PM EDT us Hyun Pizano MD POINT OF CARE TEST EN TER/EDIT ORDERABLES Final Result * (ABNORMAL) Lipid Panel, Standard (09/04/2024 1:55 PM EST) Pathologist [facility] Triglycerides 159(H) <150 mg/dL [facility] Comment:Desirable Triglyceri de: less than 150 mg/dLBorderline High Triglyceride 150-199 mg/dLHigh Triglyceride: 200-499 mg/dLVery High Triglyceride: greater than or equal to 5OO mg/dL Cholesterol 176 <200 mg/dL [facility] Comment:Desirable Cholestero l: less than 200 mg/dLBorderline High Cholesterol: 200-239 mg/dLHigh Cholesterol: greater than 239 mg/dL LDL Cholesterol Calculated 98 <100 mg/dL [facility] Comment:Desirable LDL: less than 100 mg/dLNear Optimal/Above Optimal LDL: 110- 129 mg/dLBorderline High LDL: 130-159 mg/dLHigh LDL: 160-189 mg/dLVery High LDL: greater than or equal to 190 mg/dL HDL Cholesterol 47 >40 mg/dL [facility] Comment:Desirable HDL: great er than 40 mg/dL Note: This HDL assay may give artificially low results in patients with liver disease. Blood Venous blood specimen / Unknown 09/04/2024 1:55 PM EST 09/04/2024 4:37 PM EST Hyun Pizano MD LAB BLOOD ORDERABLES Final Result [facility] [address] [place] [address] [phone] * (ABNORMAL) FIT DNA/Cologuard Cancer Screening (04/13/2023 6:02 PM EDT) Cologuard Cancer Screen Positive Stool 04/13/2023 6:02 PM EDT Hyun Pizano MD HEALTH MAINTENANCE Fi nal Result * Colonoscopy (08/10/2016) Colonoscopy Normal Normal Comment:Recommended 5 year f ollow up due to history of polyps Historical Provider HEALTH MAINTENANCE Final Result from Last 3 Months or Most Recently Relevant to Health Maintenance Insurance [facility] [employer] (O D-SNP) [place] [id number] Care Teams Trial Attorney Relationship Specialty Start Date End Date Hyun Resendiz MD [address] [place] [phone] PCP - General Family Medicine 05/21/19
--- OUTSIDE RECORDS SUMMARY | 2025-05-22 13:36 | XMS_ITS | Encounter Summary ---
Author Organization [employer] Address [address] [facility] 7t [place] [address] Care Team Providers Care Almond Sorter Name Role Phone Hyun Resendiz MD Primary Care Provide r Reason for Visit * Reason Comments Med Refill Encounter Details Date Type Department Care Team ([facility] st Contact Info) Description 05/05/2023 Refill [facility] [address] [place], [place] [phone] Hyun Resendiz MD [address] [place], [place] [phone] Diabetic nephropathy associated with type 2 diabetes mellitus (CMS/HCC); Type 2 diabetes mellitus with stage 3b chronic kidney disease, without long-term current use of insulin ([facility]) Social History Tobacco Use Types Packs/Day Years [...] associated with type 2 diabetes mellitus (CMS/HCC) Type 2 diabetes mellitus with stage 3b chronic kidney disease, without long-term current use of insulin ([facility]) documented in this encounter Additional Health Concerns Assessment Noted Time PHQ-9 Depression Total Score: 16 023 2:51 PM EDT documented as of this encounter Care Teams Almond Sorter Relationship Specialty Start Date End Date Hyun Resendiz MD [address] [place] [address] PCP - General Family Medicine 05/21/19 documented as of this encounter
--- OUTSIDE RECORDS SUMMARY | 2025-05-22 13:36 | XMS_ITS | Encounter Summary ---
Author Organization [employer] Address [address] 7[address] [place] [address] Care Team Providers Care Accounts Receivable Supervisor Name Role Phone Hyun Resendiz MD Primary Care Provide r Reason for Visit * Reason Comments Med Refill Encounter Details Date Type Department Care Team ([facility] st Contact Info) Description 04/21/[address] [facility] [address] [place], [place] [phone] Hyun Resendiz MD [address] [place] [address] Persistent asthma without complication, unspecified asthma severity [...] documented as of this encounter Care Teams Accounts Receivable Supervisor Relationship Specialty Start Date End Date Hyun Resendiz MD [address] [place] [address] PCP - General Family Medicine 05/21/19 documented as of this encounter
--- OUTSIDE RECORDS SUMMARY | 2025-05-22 13:36 | XMS_ITS | Encounter Summary ---
Author Organization [employer] Address [address] [facility] 7t [place] [address] Care Team Providers Care Rail Car Painter/Sandblaster Name Role Phone Hyun Resendiz MD Primary Care Provide r Reason for Visit * Reason Comments Med Refill Encounter Details Date Type Department Care Team (Late st Contact Info) Description 11/10/2022 Refill [facility] & PEDS [address] [place], [place] [phone] Tammie Boyd MD [address] [place] [address] Recurrent UTI Social History Tobacco Use Types [...] specified documented in this encounter Care Teams Rail Car Painter/Sandblaster Relationship Specialty Start Date End Date Hyun Resedniz MD [address] [place], [place] [phone] PCP - General Family Medicine 05/21/19 documented as of this encounter
--- OUTSIDE RECORDS SUMMARY | 2025-05-22 13:36 | XMS_ITS | Encounter Summary ---
Author Organization [employer] Address [address] 7[address] [place] [address] Care Team Providers Care Roving Hauler Name Role Phone Hyun Resendiz MD Primary Care Provide r Encounter Details Date Type Department Care Team (Late st Contact Info) Description 12/26/2022 Orders Only [facility] MED [facility] PEDS [address] [place] [address] Shaunna Wick LPN Social History Tobacco Use [...] on filedocumented in this encounter Care Teams Roving Hauler Relationship Specialty Start Date End Date Hyun Resendiz MD [address] [place] [phone] PCP - General Family Medicine 05/21/19 documented as of this encounter
--- OUTSIDE RECORDS SUMMARY | 2025-05-22 13:36 | XMS_ITS | Encounter Summary ---
Author Organization [employer] Address [address] [facility] 7t [place] [address] Care Team Providers Care Environmental Communications Specialist Name Role Phone Hyun Resendiz MD Primary Care Provide r Reason for Visit * Reason Comments Med Refill Encounter Details Date Type Department Care Team ([facility] st Contact Info) Description 06/09/2023 Refill [facility] [address] [place], [place] [phone] Hyun Resendiz MD [address] [place] [address] Social History Tobacco Use Types Packs/Day Years [...] documented as of this encounter Care Teams Environmental Communications Specialist Relationship Specialty Start Date End Date Hyun Resendiz MD [address] [place] [address] PCP - General Family Medicine 05/21/19 documented as of this encounter
--- OUTSIDE RECORDS SUMMARY | 2025-05-22 13:36 | XMS_ITS | Encounter Summary ---
Author Organization [facility] Address [address] [facility] [address] [place] [address] Phone Care Team Providers Care Rn Team Leader Name Role Phone Hyun Resendiz MD Primary Care Provide r Reason for Visit * Reason Comments Med Refill Encounter Details Date Type Department Care Team (Late st Contact Info) Description 04/06/2021 Refill [facility] [address] [facility] [address] [place] [address] Bentley Metz MD [address] [facility] [address] [place] [address] Social History Tobacco Use Types [...] Pt has appt scheduled for 05/16 in [place] * Telephone Encounter - Bentley Metz MD [...] Care Team (Late st Contact Info) Description 05/24/2025 Orders Only [facility] [address] [place] [address] [place] [phone] Bentley Metz MD [address] [facility] [address] [place] [phone] Stage 3b chronic kidney disease (HCC); Renal osteodystrophy; Type 2 diabetes mellitus with diabetic chronic kidney disease (HCC) 07/06/2025 3:45 PM EDT Office Visit [facility] [address] [place] [address] [place] [phone] Bentley Metz MD [address] [facility] [address] [place] [phone] documented as of this encounter Visit Diagnoses Not on filedocumented in this encounter Care Teams Rn Team Leader Relationship Specialty Start Date End Date Hyun Resendiz MD [address] [place] [address] [place] [phone] PCP - General Internal Medicine 05/16/21 documented as of this encounter
--- OUTSIDE RECORDS SUMMARY | 2025-05-22 13:36 | XMS_ITS | Encounter Summary ---
Author Organization [employer] Address [address] [facility] 7t [place] [address] Care Team Providers Care Computer Engineer Name Role Phone Hyun Resendiz MD Primary Care Provide r Reason for Visit * Reason Onset Date Comments Appointment Request 02/09/2025 Encounter Details Date Type Department Care Team ([facility] st Contact Info) Description 02/09/2025 Telephone [facility] [address] [place], [place] [phone] Hyun Resendiz MD [address] [place], [place] [phone] Appointment Request Social History Tobacco Use Types Packs/Day Years [...] Recorded Patient Health Questionnaire-2 Score 6 10/02/2023 Internet Access Answer Date Recorded Internet Access [...] AM EDT documented as of this encounter Miscellaneous Notes * Telephone Encounter - Ramiro López - 02/09/2025 11:55 AM EDT Tc from pt requesting call back stating she was to be scheduled for a 3 month follow up with pcp but has not received update on appt. Pt stated no current concerns at the moment. Please contact pt at [phone]. (Korean Speaker) documented in this encounter Plan of Treatment Not on file documented as of this encounter Visit Diagnoses Not on filedocumented in this encounter Additional Health Concerns Assessment Noted Time PHQ-9 Depression Total Score: 20 024 3:17 PM EST documented as of this encounter Care Teams Computer Engineer Relationship Specialty Start Date End Date Hyun Resendiz MD [address] [place] [address] PCP - General Family Medicine 05/21/19 documented as of this encounter
--- OUTSIDE RECORDS SUMMARY | 2025-05-22 13:36 | XMS_ITS | Encounter Summary ---
Author Organization [employer] Address [address] [facility] 7t [place] [address] Care Team Providers Care Commercial Artist Lettering Name Role Phone Hyun Resendiz MD Primary Care Provide r Reason for Visit * Reason Comments Med Refill Encounter Details Date Type Department Care Team ([facility] st Contact Info) Description 01/19/2023 Refill [facility] CH[facility] MED & PEDS [address] [place], [place] [phone] Tammie Boyd MD [address] [place] [address] Recurrent UTI Social History Tobacco Use Types [...] specified documented in this encounter Care Teams Commercial Artist Lettering Relationship Specialty Start Date End Date Hyun Resendiz MD [address] [place] [address] PCP - General Family Medicine 05/21/19 documented as of this encounter
--- OUTSIDE RECORDS SUMMARY | 2025-05-22 13:36 | XMS_ITS | Encounter Summary ---
Author Organization [facility] Address [address] [facility] [address] [place] [address] Phone Care Team Providers Care Mill Feeder Name Role Phone Hyun Resendiz MD Primary Care Provide r Reason for Visit * Reason Comments Med Refill Encounter Details Date Type Department Care Team (Late st Contact Info) Description 02/20/2021 Refill [facility] [address] [facility] [address] [place] [address] Bentley Metz MD [address] [facility] [address] [place] [address] Social History Tobacco Use Types [...] Only [facility] [address] [place] [phone] Bentley Metz MD [address] [phone] Stage 3b chronic kidney disease (HCC); Renal osteodystrophy; Type 2 diabetes mellitus with diabetic chronic kidney disease (HCC) 07/06/2025 3:45 PM EDT Office Visit [facility] [address] [place] [phone] Bentley Metz MD [address] [phone] documented as of this encounter Visit Diagnoses Not on filedocumented in this encounter Care Teams Mill Feeder Relationship Specialty Start Date End Date Hyun Resendiz MD [address] [place] [address] [place] [phone] PCP - General Internal Medicine 05/16/21 documented as of this encounter
--- OUTSIDE RECORDS SUMMARY | 2025-05-22 13:36 | XMS_ITS | Encounter Summary ---
Author Organization [employer] Address [address] [facility] 7t [place] [address] Care Team Providers Care Gourmet Coffee Attendant Name Role Phone Hyun Resendiz MD Primary Care Provide r Encounter Details Date Type Department Care Team (Late st Contact Info) Description 05/03/2023 Abstract [facility] MEDICINE [address] [place] [address] Hyun Resendiz MD [address] [place] [address] Social History Tobacco Use Types Packs/Day Years [...] documented as of this encounter Care Teams Gourmet Coffee Attendant Relationship Specialty Start Date End Date Hyun Resendiz MD [address] [place] [address] PCP - General Family Medicine 05/21/19 documented as of this encounter
--- OUTSIDE RECORDS SUMMARY | 2025-05-22 13:36 | XMS_ITS | Encounter Summary ---
Author Organization [employer] Address [address] [facility] [address] 7t [place] [address] Care Team Providers Care Counselor Camp Name Role Phone Hyun Resendiz MD Primary Care Provide r Encounter Details Date Type Department Care Team (Late st Contact Info) Description 07/03/2023 Abstract [facility] MEDICINE [address] [place] [address] Carina Ramos Social History Tobacco Use Types [...] on file documented as of this encounter Procedures Procedure Name Priority Date/Time Associated Diagnosis Comments COLONOSCOPY Routine 08/10/2016 documented in this encounter Results * Hm Colonoscopy (08/10/2016) Colonoscopy Normal Normal Comment:Recommended 5 year f ollow up due to history of polyps us Historical Provider HEALTH MAINTENANCE Final Result documented in this encounter Visit Diagnoses Not on filedocumented in this encounter Additional Health Concerns Assessment Noted Time PHQ-9 Depression Total Score: 16 023 2:51 PM EDT documented as of this encounter Care Teams Counselor Camp Relationship Specialty Start Date End Date Hyun Resendiz MD [address] [place] [phone] PCP - General Family Medicine 05/21/19 documented as of this encounter
--- OUTSIDE RECORDS SUMMARY | 2025-05-22 13:36 | XMS_ITS | Clinical Summary ---
Author Organization [facility] Address [address] [place] [address] Phone Care Team Providers Care Adult Care Manager Name Role Phone Hyun Resendiz MD Primary Care Provide r Allergies Active Allergy Reactions Criticality Noted Date Comments Penicillins 12/04/2024 Sulfa (Sulfonamide Antibiotics) 11/22 Social History Tobacco Use Types Packs/Day Years Used Date Smoking Tobacco: Never Assessed Comments Unknown Sex and Gender Information Value Date Recorded Sex Assigned at Not on file Legal Sex Female 8:26 PM EST Gender Identity Not on file Sexual Orientation Not on file Last Filed Vital Signs Vital Sign Reading Time Taken Comments Blood Pressure - - Pulse - - Temperature - - Respiratory Rate - - Oxygen Saturation - - Inhaled Oxygen Concentration - - Weight 49.9 kg (110 lb) 12/04/2024 10:25 AM EDT Height 152.4 cm (5') 12/04/2024 10:25 AM EDT Body Mass Index 21.48 12/04/2024 10:25 AM EDT Plan of Treatment Health Maintenance Due Date Last Done Comments Diabetes: Annual GFR (Glomerular Filtration Rate) 1949 Diabetes: Annual Foot Exam 1959 Diabetes: Annual Retina Eye Exam 1959 DTaP,Tdap,and Td Vaccines (1 - Tdap) 1968 Hepatitis A Vaccines (1 of 2 - Risk 2-dose series) 1968 Pneumococcal Vaccine: 50+ Years (1 of 2 - PCV) 1968 Zoster Vaccines (1 of 2) 1968 Hepatitis B Vaccines (1 of 3 - Risk 3-dose series) 2009 COVID-19 Vaccine (3 - Pfizer risk series) 07/26/2021 06/28/2021, 06/07/2021 Colorectal Cancer Screening: Colonoscopy 10/19/2023 Falls Risk Assessment 10/19/2023 Hepatitis C Screening 10/19/2023 Medicare Annual Wellness Visit 10/19/2023 Osteoporosis Screening (Bone Density Screening) 10/19/2023 Social Influencers of Health Screening 10/19/2023 Hypertension/CHF/CAD Annual BMP Blood Test 11/07/2023 RSV Immunization Adult Patients (1 - 1-dose 75+ series) 2024 Depression Screening 09/24/2024 Diabetes: Annual Urine Albumin-Creatinine Ratio (uACR) 12/03/2024 Diabetes: Blood Sugar Contro l Test (HGBA1C) 05/19/2025 11/19/2024, 05/10/2020 Influenza Vaccine (#1) 2025 Cholesterol Screening (Lipid Panel) 09/04/2029 09/04/2024 HIB Vaccines Aged Out No longer eligi ble based on patient's age to complete this topic HPV Vaccines Aged Out No longer eligi ble based on patient's age to complete this topic IPV Vaccines Aged Out No longer eligi ble based on patient's age to complete this topic MMR Vaccines Aged Out No longer eligi ble based on patient's age to complete this topic Meningococcal ACWY Vaccine Aged Out N o longer eligible based on patient's age to complete this topic Meningococcal B Vaccine Aged Out No l onger eligible based on patient's age to complete this topic RSV Immunization Patients Under 20 months Aged Out No longer eligible b ased on patient's age to complete this topic Varicella Vaccines Aged Out No longer eligible based on patient's age to complete this topic Insurance [facility] MEDICARE Member Subscriber Plan / Payer (Ef fective 2014-Present) Name:Dory Bassett Relation to Subscriber:Self Name:Dory Bassett Payer ID:[id number] Group ID:[id number] Type:Not on file Address: [place] [facility] [place] [phone] Care Teams Adult Care Manager Relationship Specialty Start Date End Date Hyun Resendiz MD [address] [phone] PCP - General 08/20/23
--- OUTSIDE RECORDS SUMMARY | 2025-05-22 13:36 | XMS_ITS | Clinical Summary ---
Author Organization [facility] Facility Address [address] [place] [address] Care Team Providers Care City Wellness Coordinator Name Role Phone Hyun Resendiz MD Primary [...] (one) time each day in the evening 5 Active Banophen 25 MG capsule Take 25 mg by mouth at night if needed 1 Active LORazepam (ATIVAN) 0.5 MG tablet TOME RICARDO TABLETA AMANDA VECES AL D A CUANDO SEA NECESARIO 1 Active methenamine (HIPREX) 1 g tablet 1 Active oxybutynin XL (DITROPAN-XL) 15 MG 24 hr tablet TOME RICARDO TABLETA TODOS LOS BANDA 1 Active pantoprazole (PROTONIX) 40 MG EC tablet 1 Active traMADol (ULTRAM) 50 MG tablet Take 50 mg by mouth every 6 (six) hours if needed for moderate pain Active apixaban (Eliquis) 5 MG tablet Take 5 mg by mouth in the morning and 5 mg in the evening. Active spironolactone (ALDACTONE) 25 MG tablet Take 1 tablet (25 mg total) by mouth 1 (one) time each day 90 tablet 4 4 12/11/19 27 Active metoprolol tartrate (LOPRESSOR) 50 MG tablet TOME RICARDO TABLETA DOS VECES AL SANKET 180 tablet 5 4 Active losartan (COZAAR) 50 MG tabletIndicatio ns:Renal disorder due to type 2 diabetes mellitus <Other diabetic kidney complication> (HCC),Stage 3b chronic kidney disease (HCC) TAKE 1 TABLET BY MOUTH 1 TIME EACH DAY. 90 tablet 3 5 Active ergocalciferol 1.25 MG (09577 UT) capsule Take 1 capsule (50,000 Units total) by mouth every 14 (fourteen) days 2 capsule 1 5 Active Active Problems Problem Noted Date Diagnosed Date Type 2 diabetes mellitus 02/01/2024 Overview (03/18/2024): Last Assessment & Plan: C/w same medication regimen C/w diabetic diet Indigestion 01/16/2023 Stage 3b chronic kidney disease 05/16/2021 Renal osteodystrophy 05/16/2021 Stage 3a chronic kidney disease 01/18/2021 Type 2 diabetes mellitus wit h diabetic chronic kidney disease 01/18/2021 Hypertensive renal disease 01/18/2021 Renal stone 01/18/2021 Cervical spondylosis 12/12/2018 Neck pain 07/31/2018 Diffuse pain 06/28/2018 Disorder of forearm 10/16/2017 Primary coxarthrosis, 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 Hip pain 08/29/2017 Adhesive capsulitis of shoulder 03/18/2013 History of cholecystectomy 03/18/2013 Depressive disorder 03/12/2012 Essential hypertension 02/16/2012 Herpes simplex 02/16/2012 Urinary incontinence 02/16/2012 Pure hypercholesterolemia 02/16/2012 Tobacco dependence syndrome 09[birth year]24/1959 Family History Medical History Relation Comments Diabetes Father Heart disease Father Hypertension Father Kidney disease Father Dementia Mother Hypertension Sibling 1 Kidney disease Sibling 2 3 sisters Diabetes Sibling 3 3 sisters & brot her Heart disease Sibling 4 2 sisters Cancer Sibling 5 3 sisters - dieudonne noma, 1 sister breast Relation Status Comments Father [...] Sign Reading Time Taken Comments Blood Pressure 104/68 12/22/2024 1:06 PM EDT Pulse 78 12/22/2024 1:06 PM EDT Temperature - - Respiratory Rate - - Oxygen Saturation 99% 12/22/2024 1:06 PM EDT Inhaled Oxygen Concentration - - Weight 50.2 kg (110 lb 9.6 oz) 12/22/2024 1:06 P M EDT Height 152.4 cm (5') 09/22/2019 12:00 PM EST Body Mass Index 21.6 09/22/2019 12:00 PM EST Plan of Treatment Upcoming Encounters Date Type Department Care Team (Late st Contact Info) Description 05/24/2025 Orders Only [facility] [address] [place] [address] Bentley Metz MD [address] [address] Stage 3b chronic kidney disease (HCC); Renal osteodystrophy; Type 2 diabetes mellitus with diabetic chronic kidney disease (HCC) 07/06/2025 3:45 PM EDT Office Visit [facility] [address] [place] [address] Bentley Metz MD [address] [address] Health Maintenance Due Date Last Done Comments Breast Cancer Screening 1950 Pneumococcal Vaccine: 50+ Years (1 of 2 - PCV) 1968 Colorectal Cancer Screening: Annual FOBT 1998 Colorectal Cancer Screening: Colonoscopy 1998 Colorectal Cancer Screening: Sigmoidoscopy 1998 Diabetes: Ophthalmology Exam 10/24/2020 Diabetes: Pedal Pulse Checked 10/24/2020 Diabetes: Sensory Foot Exam 10/24/2020 Diabetes: Visual Foot Exam 10/24/2020 Influenza Vaccine (#1) 2025 Diabetes: Hemoglobin A1C 07/11/2025 025, 11/19/2024, 11/02/2023, Additional history exists Hepatitis B Vaccine Aged Out No longe [...] average glucose, using the formula of the [id number] Average Glucose study (ADAG), Diabetes Care, Vol.31,#8, Apr. 2007 Hemoglobin A1C 6.7 % SERGIO Comment: Hemoglobin A1C Reference Range Adults: 4.8 - 6.0 % Non diabetic: < 6.0 % Goal: < 7.0 % Additional Action Suggested: > 8.0 % Note: Hemoglobin A1c results are invalid for patients with abnormal amounts of HbF. Blood transfusions may impact the HbA1c concentration in the patient sample. 05/10/2020 10:5 3 AM EDT us Hyun Pizano MD LAB BLOOD ORDERABLES Final Result [place] from Last 3 Months or Most Recently Relevant to Health [place] [address] [facility] ([id number]) [place] [address] [facility] ([id number]) Care Teams City Wellness Coordinator Relationship Specialty Start Date End Date Hyun Resendiz MD [address] [place] [address] [place] [phone] PCP - General Internal Medicine 05/16/21
== END 2025-05-22 14:18 | disposition home or self-care (01) ==
LOC: HO.HGI 13:23
PROVIDERS: PCP Internal Medicine; Visit Provider Nurse Practitioner
DX: D12.6 Benign neoplasm of colon, unspecified (principal); N18.4 Chronic kidney disease, stage 4 (severe); K21.9 Gastro-esophageal reflux disease without esophagitis; K59.00 Constipation, unspecified
CPT/HCPCS: 99214

== ENCOUNTER → 2025-05-22 13:22 | Outpatient (BNVA) | payer OTHER, SELFPAY | PROVIDERS: PCP Internal Medicine; Visit Provider Nurse Practitioner | DX: Z01.818 Encounter for other preprocedural examination (principal); D12.6 Benign neoplasm of colon, unspecified; K21.9 Gastro-esophageal reflux disease without esophagitis; K59.00 Constipation, unspecified; N18.4 Chronic kidney disease, stage 4 (severe); I82.A11 Acute embolism and thrombosis of right axillary vein | CPT/HCPCS: 99212 ==

== ENCOUNTER 2025-06-24 12:08 | Outpatient (REF) | payer OTHER, SELFPAY ==
[2025-06-24 12:30] LABS: MANUAL DIFF FLAG NO
[2025-06-24 13:05] LABS: Hematocrit 36.8 % (37.0-47.0); Hemoglobin 12.7 g/dl (12.0-16.0); Imm Gran Abs Auto 0.02 X10*3/uL (0.00-0.03); Imm Gran Pct Auto 0.3 % (0.0-0.4); Lymphocytes Absolute Auto 2.1 X10*3/uL (1.2-4.9); Mean Corpuscular HGB Conc 34.5 g/dl (31.0-35.0); Mean Corpuscular Hemoglobin 32.1 pg (27.0-33.0); Mean Corpuscular Volume 92.9 fL (80.0-98.0); NRBC Abs Auto 0.000 X10*3/uL (0.0-0.012); NRBC Pct Auto 0.0 /100WBC (0.0-0.2); Platelet Count 266 X10*3/uL (160-400); Red Blood Count 3.96 X10*6/uL (4.20-5.50); White Blood Count 6.6 X10*3/uL (4.8-10.8)
[2025-06-24 13:39] LABS: Albumin Level 4.6 g/dL (3.5-5.0); Anion Gap 10 (12-20); Blood Urea Nitrogen 17 mg/dL (9-16); Calcium 9.5 mg/dL (8.4-10.2); Carbon Dioxide 26 mmol/L (22-29); Chloride 107 mmol/L (96-108); Estimated Glomerular Filt Rate 33; Magnesium 1.9 mg/dL (1.6-2.6); Potassium 5.3 mmol/L (3.3-5.1); Sodium 138 mmol/L (135-145)
--- OUTSIDE RECORDS SUMMARY | 2025-06-24 13:40 | XMS_ITS | Clinical Summary ---
Author Organization [employer] Address [address] [place] [address] 7t [place] [address] Care Team Providers Care Communications Writer Name Role Phone Hyun Resendiz MD Primary [...] [place] NOCHE 105 g 12/28/19 23 Active Eliquis 5 MG tablet [...] AL ACOSTARSE FOR CONSTIPATION 08/24/20 22 Active Mapap 500 MG capsule Take 1 [...] and swelling). 30 g 11/02/19 24 Active Blood Glucose Monitoring Suppl (Starvine[employer]SEElogix [place] Lite) w/Device kitIndications:Ty pe 2 diabetes mellitus with stage 3b chronic kidney disease, without long-term current use of insulin ([facility]) Use to test blood sugar 2 times daily 1 kit 11/02/19 24 Active spironolactone (Aldactone) 25 MG tablet Take 12.5 mg by mouth in the morning. 10/21/19 24 Active Alcohol Swabs 70 % padsIndications:T ype 2 diabetes mellitus with chronic kidney disease, without long-term current use of insulin, unspecified CKD stage (HCC) Use 1 pad tid as directed 300 each 3 02/01/20 24 Active fluticasone furoate (Arnuity Ellipta) 100 MCG/ACT inhaler INHALE 1 PUFF BY MOUTH ONCE A DAY. RINSE MOUTH AFTER USE. 30 each 2 04/21/20 24 Active fluticasone (Flonase) 50 MCG/ACT nasal spray USE 1-2 SPRAYS BY INTRANASAL ROUTE EVERY DAY IN EACH NOSTRIL NEEDED 48 mL 3 08/27/20 24 Active cholecalciferol (Vitamin D-3) 50 MCG (1999) tabletIndications :Diabetic nephropathy associated with type 2 diabetes mellitus (HCC) TAKE 1 TABLET BY MOUTH EVERY MORNING 90 tablet 1 09/04/20 24 Active SITagliptin (Januvia) 25 MG tabletIndications :Type 2 diabetes mellitus with chronic kidney disease, without long-term current use of insulin, unspecified CKD stage (HCC) Take 1 tablet (25 mg) by mouth Once per day. 30 tablet 11 11/19/19 25 026 Active fluticasone furoate (Arnuity Ellipta) 100 MCG/ACT inhalerIndication s:Persistent asthma without complication, unspecified asthma severity Inhale 1 puff Once per day. 1 each 12/17/19 25 026 Active FreeStyle lancets USE RAJINDER LO INDICADO AMANDA VECES AL SANKET 100 each 12/17/19 25 Active FREESTYLE LITE test strip USE RAJINDER LO INDICADO AMANDA VECES AL SANKET 100 strip 12/17/19 25 Active meclizine (Antivert) 12.5 MG tablet TOME RICARDO TABLETA AMANDA VECES AL SANKET CUANDO SEA NECESARIO 20 tablet 2 12/17/19 25 Active EPINEPHrine (Epipen) 0.3 MG/0.3ML injection syringeIndication s:Allergy to cephalosporin INJECT 0.3 MG DIRECTED 1 TIME IF NEEDED FOR ANAPHYLAXIS FOR UP TO 4 DOSES. INJECT INTO UPPER LEG. CALL 911 AFTER USE. 1 each 1 12/17/19 25 Active glipiZIDE XL (Glucotrol XL) 2.5 MG 24 hr tabletIndications :Diabetic nephropathy associated with type 2 diabetes mellitus (HCC) TAKE 1 TABLET BY MOUTH IN THE MORNING AND 1 TABLET AT NOON. DO NOT CRUSH, CHEW, OR SPLIT. 180 tablet 3 12/17/19 25 Active simvastatin (Zocor) 10 MG tablet TOME 1 TABLETA POR VIA ORAL TODOS LOS BANDA AL ACOSTARSE 90 tablet 3 02/10/20 25 Active methenamine hippurate (Hiprex) 1 g tabletIndications :Recurrent UTI TOME 1 TABLETA POR VIA ORAL DOS VECES AL SANKET 180 tablet 1 02/13/20 25 Active empagliflozin (Jardiance) 10 MGIndications:Typ e 2 diabetes mellitus with stage 3b chronic kidney disease, without long-term current use of insulin (HCC) TAKE 1 TABLET BY MOUTH EVERY DAY 90 tablet 03/13/20 Active albuterol 108 (90 Base) MCG/ACT inhalerIndication s:COVID-19 virus infection TAKE 2 PUFFS BY MOUTH EVERY 4 TO 6 HOURS IF NEEDED 18 g 1 05/19/20 25 Active Active Problems Problem Noted Date [...] Plan (02/01/2024 2:03 PM EDT): Referral to global mobility specialist will be mail to her Peripheral [...] to call ambulance a send patient to [facility] emergency room for further work up and [...] hips 10/16/2017 Stage 3 chronic kidney disease (CMS/HCC) 018 Assessment & Plan (08/31/2023 12:15 PM EST): [...] Encounters Date Type Department Care Team Description 06/24/2025 Orders Only GENERIC EXTERNAL DATA DEPARTMENT Provider, Generic External Data 05/19/[address] [address] Hyun Resendiz MD COVID-19 virus infection 04/10/2025 2:30 PM EDT Office Visit [address] [address] Hyun Resendiz MD Essential hypertension (Primary Dx); Type 2 diabetes mellitus with chronic kidney disease, without long-term current use of insulin, unspecified CKD stage ([facility]/HCC); Chronic neck pain 04/10/2025 Travel 04/09/[address] [address] Hyun Resendiz MD Chart Prep 04/01/2025 Patient Outreach [address] [address] Hyun Resendiz MD Pre-visit Planning (SDNM screening completed on 11/05/2024) 03/26/[address] [phone] Hyun Resendiz MD COVID-19 virus infection from Last 3 Months Social History Tobacco [...] Done Comments CT Colonography 1949 FIT 1949 Sigmoidoscopy 1949 Eye Exam 1959 Hepatitis C Screening 1967 DTaP/Tdap/Td Vaccines (1 - Tdap) 1968 Hepatitis A Vaccines (1 of 2 - Risk 2-dose series) 1968 Pneumococcal Vaccine: 50+ Years (1 of 2 - PCV) 1968 Zoster Vaccines (1 of 2) 1999 Hepatitis B Vaccines (1 of 3 - Risk 3-dose series) 2009 FOBT 04/20/2024 04/20/2023, 04/13/2023 RSV Patients and Patients Aged 60 years or older (1 - 1-dose 75+ series) 2024 Diabetes: Foot Exam 08/31/2024 08/31/2023, 08/31/2023, 08/31/2023, Additional history exists COVID-19 Vaccine ( season) 2025 06/28/2021, 06/07/2021 Influenza Vaccine (#1) 2025 Diabetes: Hemoglobin A1C [...] Procedure Name Priority Date/Time Associated Diagnosis Comments CBC WITH AUTO DIFFERENTIAL Routine 06/24/2025 12:24 PM EDT POCT GLYCATED HEMOGLOBIN, TOTAL Routine 04/10/2025 1:36 [...] Relevant to Health Maintenance Results * (ABNORMAL) CBC auto differential (06/24/2025 12:24 PM EDT) White Blood Count 6.6 4.8 - 10.8 X10*3/uL [facility] Red Blood Count 3.96(L) 4.20 - 5.50 X10*6/uL [facility] Hemoglobin 12.7 12.0 - 16.0 g/dl [facility] Hematocrit 36.8(L) 37.0 - 47.0 % [facility] Mean Corpuscular Volume 92.9 80.0 - 98.0 fL [facility] Mean Corpuscular Hemoglobin 32.1 27.0 - 33.0 pg [facility] Mean Corpuscular HGB Conc 34.5 31.0 - 35.0 g/dl [facility] Red Cell Distribution Width 13.0 11.0 - 16.0 % [facility] Platelet Count 266 160 - 400 X10*3/uL [facility] Mean Platelet Volume 10.0 9.4 - 12.3 fL [facility] Neutrophils Percent Auto 53.9 45 - 73 % [facility] Imm Gran Pct Auto 0.3 0.0 - 0.4 % [facility] Lymphocytes Percent Auto 31.6 20 - 40 % [facility] Monocytes Percent Auto 7.9 2 - 11 % [facility] Eosinophils Percent Auto 4.9(H) 0 - 4 % [facility] Basophils Percent Auto 1.4 0 - 2 % [facility] NRBC Pct Auto 0.0 0.0 - 0.2 /100WBC [facility] Neutrophils Absolute Auto 3.5 2.0 - 8.3 x10*3/uL [facility] Imm Gran Abs Auto 0.02 0.00 - 0.03 X10*3/uL [facility] Lymphocytes Absolute Auto 2.1 1.2 - 4.9 X10*3/uL [facility] Monocytes Absolute Auto 0.5 0.1 - 1.2 X10*3/uL [facility] Eosinophils Absolute Auto 0.3 0.0 - 0.4 X10*3/uL [facility] Basophils Absolute Auto 0.1 0.0 - 0.2 X10*3/uL [facility] NRBC Abs Auto 0.000 0.0 - 0.012 X10*3/uL [facility] 06/24/2025 12:2 4 PM EDT 06/24/2025 12:29 PM EDT Generic External Data Provider LAB BLOOD ORDERAB LES Final Result [facility] [address] [place] [phone] * (ABNORMAL) POCT HGB A1C (04/10/2025 1:36 PM EDT) Hemoglobin A1C 7.8(A) 4.0 - 5.7 % QC Media Lot # [id number] Lot# Expiration Date [id number] Blood 04/10/2025 1:36 PM EDT Hyun Pizano MD POINT OF CARE TEST EN TER/EDIT ORDERABLES Final Result * POCT Glucose (04/10/2025 1:35 PM EDT) Pathologist [facility] Glucose Blood, POC 152 60 - 200 mg/dL QC Media Lot # [id number] Lot# Expiration Date [id number] Blood Capillary blood specimen / Unknown 04/10/2025 1:35 PM EDT Hyun Pizano MD POINT OF CARE TEST EN TER/EDIT ORDERABLES Final Result * (ABNORMAL) Lipid Panel, Standard (09/04/2024 1:55 PM EST) Triglycerides 159(H) <150 mg/dL [facility] Comment:Desirable Triglyceri de: less than 150 mg/dLBorderline High Triglyceride 150-199 mg/dLHigh Triglyceride: 200-499 mg/dLVery High Triglyceride: greater than or equal to 5OO mg/dL Cholesterol 176 <200 mg/dL [facility] Comment:Desirable Cholestero l: less than 200 mg/dLBorderline High Cholesterol: 200-239 mg/dLHigh Cholesterol: greater than 239 mg/dL LDL Cholesterol Calculated 98 <100 mg/dL [facility] Comment:Desirable LDL: less than 100 mg/dLNear Optimal/Above Optimal LDL: 110- 129 mg/dLBorderline High LDL: 130-159 mg/dLHigh LDL: 160-189 mg/dLVery High LDL: greater than or equal to 190 mg/dL HDL Cholesterol 47 >40 mg/dL [facility] Comment:Desirable HDL: great er than 40 mg/dL Note: This HDL assay may give artificially low results in patients with liver disease. Blood Venous blood specimen / Unknown 09/04/2024 1:55 PM EST 09/04/2024 4:37 PM EST Hyun Pizano MD LAB BLOOD ORDERABLES Final Result [facility] [address] [place] [phone] * (ABNORMAL) FIT DNA/Cologuard Cancer Screening (04/13/2023 6:02 PM EDT) Cologuard Cancer Screen Positive Stool 04/13/2023 6:02 PM EDT Hyun Pizano MD HEALTH MAINTENANCE Fi nal Result * Colonoscopy (08/10/2016) Colonoscopy Normal Normal Comment:Recommended 5 year f ollow up due to history of polyps Historical Provider HEALTH MAINTENANCE Final Result from Last 3 Months or Most Recently Relevant to Health Maintenance Insurance [facility] LONG TERM OPTIONS (O D-SNP) Care Teams Communications Writer Relationship Specialty Start Date End Date Hyun Resendiz MD [address] [place] [phone] PCP - General Family Medicine 05/21/19
--- OUTSIDE RECORDS SUMMARY | 2025-06-24 13:40 | XMS_ITS | Encounter Summary ---
Author Organization [employer] Address [address] [facility] 7t [place] [address] Care Team Providers Care Esthetician Permanent Makeup Artist Name Role Phone Hyun Resendiz MD Primary Care Provide r Encounter Details Date Type Department Care Team (Late st Contact Info) Description 05/03/2023 Abstract [facility] MED[facility]INE [address] [place] [address] Hyun Resendiz MD [address] [place] [address] Social History Tobacco Use Types Packs/Day Years [...] documented as of this encounter Care Teams Esthetician Permanent Makeup Artist Relationship Specialty Start Date End Date Hyun Resendiz MD [address] [place] [address] PCP - General Family Medicine 05/21/19 documented as of this encounter
--- OUTSIDE RECORDS SUMMARY | 2025-06-24 13:40 | XMS_ITS | Encounter Summary ---
Author Organization [employer] Address [address] [facility] [address] 7[address] [place] [address] Care Team Providers Care Conservation Officer Name Role Phone Hyun Resendiz MD Primary Care Provide r Encounter Details Date Type Department Care Team (Late st Contact Info) Description 07/03/2023 Abstract [facility] MEDICINE [address] [place] [address] Carina Ramos Social History Tobacco Use Types [...] documented as of this encounter Care Teams Conservation Officer Relationship Specialty Start Date End Date Hyun Resendiz MD [address] [place] [phone] PCP - General Family Medicine 05/21/19 documented as of this encounter
--- OUTSIDE RECORDS SUMMARY | 2025-06-24 13:40 | XMS_ITS | Encounter Summary ---
Author Organization [facility] Address [address] [facility] [address] [place] [address] Phone Care Team Providers Care Instructional Technology Facilitator Name Role Phone Hyun Resendiz MD Primary Care Provide r Reason for Visit * Reason Comments Med Refill Encounter Details Date Type Department Care Team (Late st Contact Info) Description 04/06/2021 Refill [facility] [address] [facility] [address] [place] [address] Bentley Metz MD [address] [facility] [address] [place] [address] Social History Tobacco Use Types [...] Pt has appt scheduled for 05/16 in [place] * Telephone Encounter - Bentley Metz MD [...] Care Team (Late st Contact Info) Description 07/06/2025 3:45 PM EDT Office Visit [facility] [address] [place] [phone] Bentley Metz MD [address] [facility] [address] [place] [address] documented as of this encounter Visit Diagnoses Not on filedocumented in this encounter Care Teams Instructional Technology Facilitator Relationship Specialty Start Date End Date Hyun Resendiz MD [address] [place] [address] [place] [phone] PCP - General Internal Medicine 05/16/21 documented as of this encounter
--- OUTSIDE RECORDS SUMMARY | 2025-06-24 13:40 | XMS_ITS | Encounter Summary ---
Author Organization [employer] Address [address] [facility] 7t [place] [address] Care Team Providers Care Home Companion Name Role Phone Hyun Resendiz MD Primary Care Provide r Reason for Visit * Reason Comments Med Refill Encounter Details Date Type Department Care Team (Late st Contact Info) Description 02/21/2023 Refill [facility] [address] [place], [place] [phone] Hyun Resendiz MD [address] [place], [place] [phone] Recurrent UTI Social History Tobacco Use Types [...] specified documented in this encounter Care Teams Home Companion Relationship Specialty Start Date End Date Hyun Resendiz MD [address] [place], [place] [phone] PCP - General Family Medicine 05/21/19 documented as of this encounter
--- OUTSIDE RECORDS SUMMARY | 2025-06-24 13:40 | XMS_ITS | Encounter Summary ---
Author Organization [employer] Address 75 [facility] 7t [place] [address] Care Team Providers Care Gis Engineer Name Role Phone Hyun Resendiz MD Primary Care Provide r Reason for Visit * Reason Comments Med Refill Encounter Details Date Type Department Care Team ([facility] st Contact Info) Description 02/14/2023 Refill [facility] 230 [place], [place] [phone] Hyun Resendiz MD 230 [place] [address] Social History Tobacco Use Types Packs/Day Years [...] on filedocumented in this encounter Care Teams Gis Engineer Relationship Specialty Start Date End Date Hyun Resendiz MD 230 [place], [place] [phone] PCP - General Family Medicine 05/21/19 documented as of this encounter
--- OUTSIDE RECORDS SUMMARY | 2025-06-24 13:40 | XMS_ITS | Encounter Summary ---
Author Organization [employer] Address 75 [facility] 7t [place] [address] Care Team Providers Care Foreign Language Interpreter Name Role Phone Hyun Resendiz MD Primary Care Provide r Reason for Visit * Reason Onset Date Comments Appointment Request 02/09/2025 Encounter Details Date Type Department Care Team ([facility] st Contact Info) Description 02/09/2025 Telephone [facility]INE 230 [place], [place] [phone] Hyun Resendiz MD 230 [place], [place] [phone] Appointment Request Social History Tobacco Use Types [...] at the moment. Please contact pt at [phone]. (Macedonian Speaker) documented in this encounter Plan of Treatment Not on file documented as of this encounter Visit Diagnoses Not on filedocumented in this encounter Additional Health Concerns Assessment Noted Time PHQ-9 Depression Total Score: 20 024 3:17 PM EST documented as of this encounter Care Teams Foreign Language Interpreter Relationship Specialty Start Date End Date Hyun Resendiz MD 230 [place] [address] PCP - General Family Medicine 05/21/19 documented as of this encounter
--- OUTSIDE RECORDS SUMMARY | 2025-06-24 13:40 | XMS_ITS | Encounter Summary ---
Author Organization [employer] Address 75 [facility] 7t [place] [address] Care Team Providers Care Forms Analyst Name Role Phone Hyun Resendiz MD Primary Care Provide r Reason for Visit * Reason Comments Med Refill Encounter Details Date Type Department Care Team ([facility] st Contact Info) Description 01/19/[address] [facility] MED & PEDS [address] [place], [place] [phone] Tammie Boyd MD 230 [place] [address] Recurrent UTI Social History Tobacco Use Types [...] specified documented in this encounter Care Teams Forms Analyst Relationship Specialty Start Date End Date Hyun Resendiz MD [address] [place] [address] PCP - General Family Medicine 05/21/19 documented as of this encounter
--- OUTSIDE RECORDS SUMMARY | 2025-06-24 13:40 | XMS_ITS | Clinical Summary ---
Author Organization [facility] Address [address] [place] [address] Care Team Providers Care Plastic Production Machine Setter Name Role Phone Hyun Resendiz MD Primary [...] disorder due to type 2 diabetes mellitus <Unspecified DM Medication; Other diabetic kidney complication> (HCC),Stage 3b chronic kidney disease (HCC) TAKE 1 TABLET BY MOUTH 1 TIME EACH DAY. 90 tablet 3 5 Active ergocalciferol 1.25 MG (80936 UT) capsule Take 1 capsule (50,000 Units [...] Urinary incontinence 02/16/2012 Pure hypercholesterolemia 02/16/2012 Tobacco use disorder 09/24/1960 Encounters Date Type Department Care Team Description 05/24/2025 Orders Only [facility] [address] [place] [address] Bentley Metz MD Stage 3b chronic kidney disease (HCC); Renal osteodystrophy; Type 2 diabetes mellitus with diabetic chronic kidney disease (HCC) from Last 3 [...] Visit [facility] [address] [place] [place] [address] Bentley Metz MD [address] [facility] [address] [place] [phone] Health Maintenance Due Date Last Done Comments Breast Cancer Screening 1949 Pneumococcal Vaccine: 50+ Years (1 of 2 - PCV) 1968 Colorectal Cancer Screening: Annual FOBT 1998 Colorectal Cancer Screening: Colonoscopy 1998 Colorectal Cancer Screening: Sigmoidoscopy 1998 Diabetes: Ophthalmology Exam 10/24/2020 Diabetes: Pedal Pulse Checked 10/24/2020 Diabetes: Sensory Foot Exam 10/24/2020 Diabetes: Visual Foot Exam 10/24/2020 Influenza Vaccine (#1) 2025 Diabetes: Hemoglobin A1C 07/11/20252 025, 11/19/2024, 11/02/2023, Additional history exists Hepatitis B Vaccine Aged Out No longe r eligible based on patient's age to complete this topic Procedures Procedure Name Priority Date/Time Associated Diagnosis Comments CREATININE, BLOOD Routine 06/24/2025 12: 29 PM EDT BUN Routine 06/24/2025 12:29 PM EDT ELECTROLYTE PANEL Routine 06/24/2025 12: 29 PM EDT CBC AND DIFFERENTIAL Routine 06/24/2025 12:29 PM EDT CALCIUM Routine 06/24/2025 12:29 PM EDT Stage 3b chronic kidney disease (HCC) Renal osteodystrophy Type 2 diabetes mellitus with diabetic chronic kidney disease (HCC) ALBUMIN Routine 06/24/2025 12:29 PM EDT Stage 3b chronic kidney disease (HCC) Renal osteodystrophy Type 2 diabetes mellitus with diabetic chronic kidney disease (HCC) MAGNESIUM Routine 06/24/2025 12:29 PM EDT Stage 3b chronic kidney disease (HCC) Renal osteodystrophy Type 2 diabetes mellitus with diabetic chronic kidney disease (HCC) PHOSPHATE ( PHOSPHORUS) Routine 06/24/2025 12:29 PM EDT Stage 3b chronic kidney disease (HCC) Renal osteodystrophy Type 2 diabetes mellitus with diabetic chronic kidney disease (HCC) HEMOGLOBIN A1C Routine 05/10/2020 10:53 AM EDT from Last 3 Months or Most Recently Relevant to Health Maintenance Results * (ABNORMAL) CBC and Differential (06/24/2025 12:29 PM EDT) WBC 6.6 4.8 - 10.8 X10*3/uL See order comments RBC 3.96(L) 4.20 - 5.50 X10*6/uL See order comments Hgb 12.7 12.0 - 16.0 g/dl See order comments Hematocrit 36.8(L) 37.0 - 47.0 % See order comments MCV 92.9 80.0 - 98.0 fL See order comments MCH 32.1 27.0 - 33.0 pg See order comments MCHC 34.5 31.0 - 35.0 g/dl See order comments RDW 13.0 11.0 - 16.0 % See order comments Platelets 266 160 - 400 X10*3/uL See order comments MPV 10.0 9.4 - 12.3 fL See order comments Neutrophils % Auto 53.9 45 - 73 % See order comments Immature Granulocytes 0.3 0.0 - 0.4 % See order comments Lymphocytes Relative 31.6 20 - 40 % See order comments Monocytes 7.9 2 - 11 % See order comments Eosinophils Relative 4.9(H) 0 - 4 % See order comments Basophils Relative 1.4 0 - 2 % See order comments nRBC Count 0.0 0.0 - 0.2 /100WBC See order comments Neutrophils Absolute 3.5 2.0 - 8.3 x10*3/uL See order comments Immature Grans (Absolute) 0.02 0.00 - 0.03 X10*3/uL See order comments Lymphocytes Absolute 2.1 1.2 - 4.9 X10*3/uL See order comments Monocytes Absolute 0.5 0.1 - 1.2 X10*3/uL See order comments Eosinophils Absolute 0.3 0.0 - 0.4 X10*3/uL See order comments Basophils Absolute 0.1 0.0 - 0.2 X10*3/uL See order comments NRBC Absolute 0.000 0.0 - 0.012 X10*3/uL See order comments 06/24/2025 12:2 9 PM EDT 06/24/2025 12:29 PM EDT us Bentley Metz MD LAB BLOOD ORDERABLES Final Re sult [facility] See order [place] [address] * Hemoglobin A1c (05/10/2020 10:53 AM EDT) Estimated Average Glucose 146 MG/DL [facility] Comment: eAG = Estimated average glucose which is %A1C expressed as average glucose, using the formula of the [id number] Average Glucose study (ADAG), Diabetes Care, Vol.31,#8, 2007 Hemoglobin A1C 6.7 % GURJITSHERRI Comment: Hemoglobin A1C Reference Range Adults: 4.8 - 6.0 % Non diabetic: < 6.0 % Goal: < 7.0 % Additional Action Suggested: > 8.0 % Note: Hemoglobin A1c results are invalid for patients with abnormal amounts of HbF. Blood transfusions may impact the HbA1c concentration in the patient sample. 05/10/2020 10:5 3 AM EDT Hyun Pizano MD LAB BLOOD ORDERABLES Final Result [facility] from Last 3 Months or Most Recently Relevant to Health Maintenance Insurance [facility] ([id number]) [place] [id number] [facility] ([id number]) Care Teams Plastic Production Machine Setter Relationship Specialty Start Date End Date Hyun Resendiz MD [address] [place] [address] [place] [phone] PCP - General Internal Medicine 05/16/21
--- OUTSIDE RECORDS SUMMARY | 2025-06-24 13:40 | XMS_ITS | Encounter Summary ---
Author Organization [employer] Address [address] [facility] [address] 7[address] [place] [address] Care Team Providers Care Outreach And Education Social Worker Name Role Phone Hyun Resendiz MD Primary Care Provide r Encounter Details Date Type Department Care Team (Late st Contact Info) Description 12/26/2022 Orders Only [facility] CHC MED & PEDS [address] [place] [address] Shaunna Wick LPN Social History Tobacco Use [...] on filedocumented in this encounter Care Teams Outreach And Education Social Worker Relationship Specialty Start Date End Date Hyun Resendiz MD [address] [place] [address] PCP - General Family Medicine 05/21/19 documented as of this encounter
--- OUTSIDE RECORDS SUMMARY | 2025-06-24 13:40 | XMS_ITS | Encounter Summary ---
Author Organization [employer] Address 75 [facility] 7t [place] [address] Care Team Providers Care Title One Teacher Name Role Phone Hyun Resendiz MD Primary Care Provide r Reason for Visit * Reason Comments Med Refill Encounter Details Date Type Department Care Team ([facility] st Contact Info) Description 06/24/[address] [facility] MED[facility]INE 230 [place], [place] [phone] Hyun Resendiz MD [address] [place] [address] Recurrent UTI Social History Tobacco Use Types [...] documented as of this encounter Care Teams Title One Teacher Relationship Specialty Start Date End Date Hyun Resendiz MD [address] [place] [address] PCP - General Family Medicine 05/21/19 documented as of this encounter
--- OUTSIDE RECORDS SUMMARY | 2025-06-24 13:40 | XMS_ITS | Encounter Summary ---
Author Organization [employer] Address [address] [facility] 7t [place] [address] Care Team Providers Care Visual Basic .Net Developer Name Role Phone Hyun Resendiz MD Primary Care Provide r Reason for Visit * Reason Comments Med Refill Encounter Details Date Type Department Care Team ([facility] st Contact Info) Description 06/09/2023 Refill [facility] MEDICINE 230 [place], [place] [phone] Hyun Resendiz MD [address] [place] [address] Social History Tobacco Use Types Packs/Day Years [...] documented as of this encounter Care Teams Visual Basic .Net Developer Relationship Specialty Start Date End Date Hyun Resendiz MD [address] [place] [address] PCP - General Family Medicine 05/21/19 documented as of this encounter
--- OUTSIDE RECORDS SUMMARY | 2025-06-24 13:40 | XMS_ITS | Encounter Summary ---
Author Organization [employer] Address 75 [facility] 7t [place] [address] Care Team Providers Care Email Designer Name Role Phone Hyun Resendiz MD Primary Care Provide r Reason for Visit * Reason Comments Med Refill Encounter Details Date Type Department Care Team (Late st Contact Info) Description 11/10/2022 Refill [facility] MED & PEDS [address] [place], [place] [phone] Tammie Boyd MD 230 [place] [address] Recurrent UTI Social History Tobacco Use Types [...] specified documented in this encounter Care Teams Email Designer Relationship Specialty Start Date End Date Hyun Resendiz MD 230 [place], [place] [phone] PCP - General Family Medicine 05/21/19 documented as of this encounter
--- OUTSIDE RECORDS SUMMARY | 2025-06-24 13:40 | XMS_ITS | Encounter Summary ---
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); Type 2 diabetes mellitus with stage 3b chronic kidney disease, without long-term current use of insulin ([facility]/HCC) Social History Tobacco Use Types Packs/Day Years [...] associated with type 2 diabetes mellitus (HCC) Type 2 diabetes mellitus with stage 3b chronic kidney disease, without long-term current use of insulin (HCC) documented in this encounter Additional Health Concerns Assessment Noted Time PHQ-9 Depression Total Score: 16 023 2:51 PM EDT documented as of this encounter Care Teams Fertilizer Loader Relationship Specialty Start Date End Date Hyun Resendiz MD 230 [place] [address] PCP - General Family Medicine 05/21/19 documented as of this encounter
--- OUTSIDE RECORDS SUMMARY | 2025-06-24 13:41 | XMS_ITS | Clinical Summary ---
Author Organization [facility] Address [address] [place] [address] Phone Care Team Providers Care Lime Plant Operator Name Role Phone Hyun Resendiz MD [...] patient's age to complete this topic Insurance [facility] MEDICARE Member Subscriber Plan / Payer (Ef fective 2014-Present) Name:Dory Bassett Relation to Subscriber:Self Name:Dory Bassett Payer ID:[id number] Group ID:[id number] Type:Not on file Address: [place] [facility] [place] [id number] Care Teams Lime Plant Operator Relationship Specialty Start Date End Date Hyun Resendiz MD [address] [phone] PCP - General 08/20/23
--- OUTSIDE RECORDS SUMMARY | 2025-06-24 13:41 | XMS_ITS | Encounter Summary ---
Author Organization [employer] Address [address] [facility] [address] 7t [place] [address] Care Team Providers Care Joiner Apprentice Name Role Phone Hyun Resendiz MD Primary Care Provide r Reason for Visit * Reason Comments Med Refill Encounter Details Date Type Department Care Team ([facility] st Contact Info) Description 04/21/2024 Refill [facility] MED & PEDS [address] [place], [place] [phone] Hyun Resendiz MD 230 [place] [address] Persistent asthma without complication, unspecified asthma severity [...] documented as of this encounter Care Teams Joiner Apprentice Relationship Specialty Start Date End Date Hyun Resendiz MD [address] [place] [address] PCP - General Family Medicine 05/21/19 documented as of this encounter
--- OUTSIDE RECORDS SUMMARY | 2025-06-24 13:41 | XMS_ITS | Encounter Summary ---
Author Organization [employer] Address [address] [facility] 7t [place] [address] Care Team Providers Care In Store Representative Name Role Phone Hyun Resendiz MD Primary Care Provide r Encounter Details Date Type Department Care Team (Late st Contact Info) Description 06/24/2025 Orders Only GENERIC EXTERNAL DATA DEPARTMENT Provider, Generic External Data Social History Tobacco Use Types Packs/Day Years [...] is your housing situation today? I have ibrahimanora pan 07/24/[address] you [...] as of this encounter Plan of Treatment Pending Results Name Type Priority Associated Diagnoses Date /Time Electrolyte Panel Lab Routine 12:24 PM EDT BUN (Blood Urea Nitrogen) Lab Routine 06/24/2025 12:24 PM EDT Creatinine, Serum Lab Routine 12:24 PM EDT Calcium Lab Routine 06/24/2025 12: 24 PM EDT Phosphate (As Phosphorus) Lab Routine 06/24/2025 12:24 PM EDT Magnesium Lab Routine 06/24/2025 12: 24 PM EDT Albumin Lab Routine 06/24/2025 12: 24 PM EDT documented as of this encounter Procedures Procedure Name Priority Date/Time Associated Diagnosis Comments CREATININE, SERUM Routine 06/24/2025 12: 24 PM EDT CBC WITH AUTO DIFFERENTIAL Routine 06/24/2025 12:24 PM EDT UREA NITROGEN (BUN) Routine 06/24/2025 1 2:24 PM EDT PHOSPHATE ( PHOSPHORUS) Routine 06/24/2025 12:24 PM EDT MAGNESIUM Routine 06/24/2025 12:24 PM EDT CALCIUM Routine 06/24/2025 12:24 PM EDT ALBUMIN Routine 06/24/2025 12:24 PM EDT ELECTROLYTE PANEL Routine 06/24/2025 12: 24 PM EDT documented in this encounter Results * (ABNORMAL) CBC auto differential (06/24/2025 12:24 PM EDT) White Blood Count 6.6 4.8 - 10.8 X10*3/uL [facility] Red Blood Count 3.96(L) 4.20 - 5.50 X10*6/uL [facility] Hemoglobin 12.7 12.0 - 16.0 g/dl [facility] Hematocrit 36.8(L) 37.0 - 47.0 % [facility] Mean Corpuscular Volume 92.9 80.0 - 98.0 fL [facility] Mean Corpuscular Hemoglobin 32.1 27.0 - 33.0 pg [facility] Mean Corpuscular HGB Conc 34.5 31.0 - 35.0 g/dl [facility] Red Cell Distribution Width 13.0 11.0 - 16.0 % [facility] Platelet Count 266 160 - 400 X10*3/uL [facility] Mean Platelet Volume 10.0 9.4 - 12.3 fL [facility] Neutrophils Percent Auto 53.9 45 - 73 % [facility] Imm Gran Pct Auto 0.3 0.0 - 0.4 % [facility] Lymphocytes Percent Auto 31.6 20 - 40 % [facility] Monocytes Percent Auto 7.9 2 - 11 % [facility] Eosinophils Percent Auto 4.9(H) 0 - 4 % [facility] Basophils Percent Auto 1.4 0 - 2 % [facility] NRBC Pct Auto 0.0 0.0 - 0.2 /100WBC [facility] Neutrophils Absolute Auto 3.5 2.0 - 8.3 x10*3/uL [facility] Imm Gran Abs Auto 0.02 0.00 - 0.03 X10*3/uL [facility] Lymphocytes Absolute Auto 2.1 1.2 - 4.9 X10*3/uL [facility] Monocytes Absolute Auto 0.5 0.1 - 1.2 X10*3/uL [facility] Eosinophils Absolute Auto 0.3 0.0 - 0.4 X10*3/uL [facility] Basophils Absolute Auto 0.1 0.0 - 0.2 X10*3/uL [facility] NRBC Abs Auto 0.000 0.0 - 0.012 X10*3/uL [facility] 06/24/2025 12:2 4 PM EDT 06/24/2025 12:29 PM EDT us Generic External Data Provider LAB BLOOD ORDERAB LES Final Result [facility] [address] [place] [phone] documented in this encounter Visit Diagnoses Not on filedocumented in this encounter Additional Health Concerns Assessment Noted Time PHQ-9 Depression Total Score: 14 025 2:49 PM EDT documented as of this encounter Care Teams In Store Representative Relationship Specialty Start Date End Date Hyun Resendiz MD [address] [place] [address] PCP - General Family Medicine 05/21/19 documented as of this encounter
--- OUTSIDE RECORDS SUMMARY | 2025-06-24 13:41 | XMS_ITS | Encounter Summary ---
Author Organization [facility] Address [address] [facility] [address] [place] [address] Phone Care Team Providers Care Blacksmith Assistant Name Role Phone Hyun Resendiz MD Primary Care Provide r Reason for Visit * Reason Comments Med Refill Encounter Details Date Type Department Care Team (Late st Contact Info) Description 02/20/2021 Refill [facility] [address] [facility] [address] [place] [address] Bentley Metz MD [address] [facility] [address] [place] [address] Social History Tobacco Use Types [...] Visit [facility] [address] [place] [address] Bentley Metz MD [address] [facility] [address] [place] [phone] documented as of this encounter Visit Diagnoses Not on filedocumented in this encounter Care Teams Blacksmith Assistant Relationship Specialty Start Date End Date Hyun Resendiz MD 230 [facility] [address] [place] [phone] PCP - General Internal Medicine 05/16/21 documented as of this encounter
[2025-06-24 13:54] LABS: Parathyroid Hormone Intact 117.7 pg/mL (8.7-77.1)
[2025-06-24 14:24] LABS: Microalbum/Creatinine Ratio Ur 11.0 ug/mg cr (<30); Total Protein Urine Random 16 mg/dL (<12)
== END 2025-06-24 12:09 | disposition home or self-care (01) ==
LOC: HO.LAB 12:08
PROVIDERS: PCP Internal Medicine; Visit Provider Internal Medicine Nephrology
DX: E11.22 Type 2 diabetes mellitus with diabetic chronic kidney disease (principal); N18.32 Chronic kidney disease, stage 3b; N25.0 Renal osteodystrophy
CPT/HCPCS: 36415; 80051; 82040; 82043; 82306; 82310; 82565; 82570; 83735; 83970; 84100; 84156; 84520; 85025